=== PATIENT | male | born 1960 | race African-American/Black ===

== ENCOUNTER 2017-10-07 14:03 | Inpatient (IN) | payer OTHER ==
[2017-10-07 16:46] VITALS: BMI 28.6
--- NOTE | 2017-10-07 19:32 | HP ---
CIWA Score - CIWA Score Nausea/Vomitin Muscle Tremors: 3 Anxiety: 3 Agitation: 3 Paroxysmal Sweats: 3 Orientation: 0-Oriented Tacttile Disturbances: 1-Very Mild Itch/Numbness Auditory Disturbances: 0-None Visual Disturbances: 0-None Headache: 1-Very Mild CIWA-Ar Total Score: 17 Admission [facility] Chief Complaint: alcohol withdrawal sx Allergies/Adverse Reactions: Allergies Allergy/AdvReac Type Severity Reaction Status Date / Time No Known Allergies Allergy Verified 10/07/17 17:37 History of Present Illness: 57 yo w h/o chronic alcoholism requesting inpatient detoxification becasue of alcohol withdrawal sx when he does not drink, deneis h/o seizures, DTs. PMHX hep c+, teated and cleared the viru, anxiety, depression and insomna. no h/o OD , no suicide attempts no SI at thist jamie, thirsty Exam Limitations: No Limitations - Ebola screening Have you traveled outside of the country in the last 21 days: No Have you had contact with anyone from an Ebola affected area: No Have you been sick,other than usual withdrawal symptoms: No Do you have a fever: No - Review of Systems Constitutional: Chills, Diaphoresis, Loss of Appetite, Night Sweats, Changes in sleep, Weakness, Unintentional Wgt. Loss EENT: reports: No Symptoms Reported, Eye Pain (droopy eyelid), Tearing Respiratory: reports: No Symptoms reported Cardiac: reports: No Symptoms Reported GI: reports: Diarrhea, Nausea, Poor Appetite, Poor Fluid Intake, Indigestion, Abdominal cramping : reports: No Symptoms Reported Musculoskeletal: reports: Back Pain (chronic back pain), Joint Pain (carpal tunnel both hands), Joint Swelling, Muscle Pain, Joint Stiffness Integumentary: reports: Flushing Neuro: reports: Headache, Numbness, Paresthesia, Tremors, Weakness, Unsteady Gait (ambulates with cane s/p trauma r leg and multiple surgeries) Endocrine: reports: Flushing, Increased Thirst Hematology: reports: No Symptoms Reported Psychiatric: reports: Judgement Intact, Mood/Affect Appropiate, Orientated x3, Anxious, Depressed Other Systems: Reviewed and Negative Patient History - Patient Medical History Hx Anemia: No Hx Asthma: Yes (Pt is on MDI for asthma.) Hx Chronic Obstructive Pulmonary Disease (COPD): No Hx Cancer: No Hx Cardiac Disorders: No Hx Congestive Heart Failure: No Hx Hypertension: No Hx Hypercholesterolemia: No Hx Pacemaker: No HX Cerebrovascular Accident: No Hx Seizures: No Hx Dementia: No Hx Diabetes: No Hx Gastrointestinal Disorders: No Hx Liver Disease: No Hx Genitourinary Disorders: No Hx Sexually Transmitted Disorders: No Hx Renal Disease (ESRD): No Hx Thyroid Disease: No Hx Human Immunodeficiency Virus (HIV): No Hx Hepatitis C: Yes (treated and reortedly cleared virus) Hx Depression: Yes Hx Suicide Attempt: No (no si) Hx Bipolar Disorder: No Hx Schizophrenia: No - Patient Surgical History Past Surgical History: Yes Hx Abdominal Surgery: Yes (hernia repair) Hx Orthopedic Surgery: Yes (multiple sx both lower legs ambulates with cane) Other Surgical History: Cyst removed from mid back Anesthesia Reaction: No - PPD History Previous Implant?: Yes Documented Results: Negative w/o proof Implanted On Prior [facility] Admission?: No PPD to be Administered?: Yes - Reproductive History Patient is a Female of Child Bearing Age (11 -55 yrs old): No Patient : No - Smoking Cessation Smoking history: Current every day smoker Have you smoked in the past 12 months: Yes Cigars Per Day: 8 Hx Chewing Tobacco Use: No Initiated information on smoking cessation: Yes 'Breaking Loose' booklet given: 10/07/17 - Substance & Tx. History Hx Alcohol Use: Yes Hx Substance Use: No Substance Use Type: Alcohol Hx Substance Use [facility]: Yes ([facility]) - Substances Abused Alcohol Route: Oral Frequency: Daily Amount used: 4-5 24 oz beers/ 1/2 pint Age of first use: 15 Date of Last Use: 10/07/17 Family Disease History - Family Disease History Family History: Denies Family Disease History: Heart Disease: Mother (alzheimiers, thyroid), Other: Mother Admission Physical Exam [facility] - Vital Signs Vital Signs: Vital Signs - 24 hr 10/07/17 16:44 Temperature 98.2 F Pulse Rate 86 Respiratory 19 Rate Blood Pressure 114/75 - Physical General Appearance: Yes: Nourished, Appropriately Dressed, Disheveled, Mild Distress, Tremorous, Irritable, Sweating, Anxious HEENTM: Yes: EOMI, Hearing grossly Normal, Normocephalic, Normal Voice, GUERO, Pharynx Normal Respiratory: Yes: Within Normal Limits, Chest Non-Tender, Lungs Clear, Normal Breath Sounds, No Respiratory Distress, No Accessory Muscle Use Neck: Yes: Within Normal Limits, No masses,lesions,Nodules, Supple, Trachea in good position Breast: Yes: Breast Exam Deferred Cardiology: Yes: Within Normal Limits, Regular Rhythm, Regular Rate, S1, S2 Abdominal: Yes: Normal Bowel Sounds, Non Tender, Flat, Soft, Increased Bowel Sounds Genitourinary: Yes: Within Normal Limits Back: Yes: Normal Inspection, Decreased Range of Motion, Muscle Spasm, Vertebral Tenderness Musculoskeletal: Yes: Back pain, Joint Stiffness, Joint swelling, Muscle Pain, Muscle weakness, Other (ambulates with cane, leg scarring from multiple surgeries) Extremities: Yes: Normal Capillary Refill, Normal Range of Motion, Tremors Neurological: Yes: Fully Oriented, Alert, Motor Strength 5/5, Normal Response, Depressed Affect, Other (right eyle droop and redness) Lymphatic: Yes: Within Normal Limits - Addiitonal Findings: withdrawal sx - Diagnostic (1) Alcohol dependence with uncomplicated withdrawal Current Visit: Yes Status: Acute (2) Nicotine dependence Current Visit: Yes Status: Acute (3) Dehydration Current Visit: Yes Status: Acute (4) Depression Current Visit: Yes Status: Acute (5) Traumatic arthropathy, lower leg Current Visit: Yes Status: Acute (6) Carpal tunnel syndrome Current Visit: Yes Status: Acute (7) Chronic low back pain Current Visit: Yes Status: Acute (8) Arthritis of left hip Current Visit: Yes Status: Acute Cleared for Admission [facility] - Detox or Rehab [facility] Level of Care: Medically Managed Detox Regimen/Protocol: Librium [facility] Breath Alcohol Content Breath Alcohol Content: 0.167
[2017-10-07] MEDS ORDERED: MAG HYDROX/AL HYDROX/SIMETH 30 ML UNIT-DOSE CUP PO PRN (19:33)
[2017-10-07] MEDS ORDERED: guaiFENesin/D-METHORPHAN HB 10 ML UNIT-DOSE CUPS PO PRN (19:33)
[2017-10-07] MEDS ORDERED: hydrOXYzine PAMOATE 50 MG CAPSULE (FP) PO PRN (19:33)
[2017-10-07] MEDS ORDERED: chlordiazePOXIDE HCL 25 MG CAPSULE PO PRN (19:33)
[2017-10-07] MEDS ORDERED: IBUPROFEN 400 MG TABLET (FP) PO PRN (19:33)
[2017-10-07] MEDS ORDERED: LOPERAMIDE HCL 2 MG CAPSULE PO PRN (19:33)
[2017-10-07] MEDS ORDERED: NICOTINE POLACRILEX 2 MG GUM BC PRN (19:33)
[2017-10-07] MEDS ORDERED: chlordiazePOXIDE HCL 25 MG CAPSULE PO ONE (19:33)
[2017-10-07] MEDS ORDERED: ACETAMINOPHEN 325 MG TABLET (FP) PO PRN (19:33)
[2017-10-07] MEDS ORDERED: MAGNESIUM HYDROX 2400MG/30ML ORAL SUSPENSION 30 ML CUP PO PRN (19:33)
[2017-10-07] MEDS ORDERED: MAGNESIUM CITRATE 300 ML BOTTLE PO PRN (19:33)
[2017-10-07] MEDS: NICOTINE 14 MG/24 HOURS TOPICAL PATCH TD SCH (20:45)
[2017-10-07] MEDS: LIDOCAINE 5% TOPICAL PATCH TP SCH (20:45)
[2017-10-07] MEDS: THIAMINE HCL 100 MG TABLET (FP) PO SCH (22:05)
[2017-10-07] MEDS: chlordiazePOXIDE HCL 25 MG CAPSULE PO SCH (22:06)
[2017-10-07] MEDS: NAPROXEN 500 MG TABLET (FP) PO SCH (22:06)
[2017-10-07] MEDS: AMITRIPTYLINE HCL 25 MG TABLET (FP) PO SCH (22:06)
[2017-10-07] MEDS: GABAPENTIN 100 MG CAPSULE (FP) PO SCH (22:06)
[2017-10-07] MEDS: CYCLOBENZAPRINE HCL 10 MG TABLET (FP) PO SCH (22:06)
[2017-10-07] MEDS: LIDOCAINE PATCH REMOVAL MC SCH (22:08)
[2017-10-07 23:13] LABS: URINE APPEARANCE CLEAR; URINE BILIRUBIN NEGATIVE (NEGATIVE); URINE BLOOD NEGATIVE (NEGATIVE); URINE COLOR YELLOW; URINE GLUCOSE (UA) NEGATIVE (NEGATIVE); URINE KETONE NEGATIVE (NEGATIVE); URINE LEUK ESTERASE NEGATIVE (NEGATIVE); URINE NITRITE NEGATIVE (NEGATIVE); URINE PROTEIN NEGATIVE (NEGATIVE); URINE UROBILINOGEN NEGATIVE mg/dL (0.2-1.0)
[2017-10-08] MEDS: chlordiazePOXIDE HCL 25 MG CAPSULE PO SCH ×4 (05:30→23:10)
[2017-10-08] MEDS: GABAPENTIN 100 MG CAPSULE (FP) PO SCH ×3 (05:33→22:08)
[2017-10-08] MEDS: CYCLOBENZAPRINE HCL 10 MG TABLET (FP) PO SCH ×3 (05:33→22:09)
[2017-10-08 09:42] LABS: MCH 29.5 pg (25.7-33.7); MCHC 32.2 g/dl (32.0-35.9); MEAN CELL VOLUME 91.5 fl (80-96); PLATELET COUNT 241 K/MM3 (134-434); RDW 14.7 % (11.9-15.9)
[2017-10-08 10:00] LABS: ALBUMIN 3.4 g/dl (3.4-5.0); ALK PHOS 78 U/L (45-117); ANION GAP 6 (8-16); BILIRUBIN,TOTAL 0.5 mg/dL (0.2-1.0); CALCIUM 8.4 mg/dL (8.5-10.1); CO2 29 mmol/L (21-32); GLUCOSE,RANDOM 92 mg/dL (74-106); SGOT/AST 11 U/L (15-37); SGPT/ALT 16 U/L (12-78); TOT PROT 6.1 g/dl (6.4-8.2)
[2017-10-08] MEDS: NICOTINE 14 MG/24 HOURS TOPICAL PATCH TD SCH (10:08)
[2017-10-08] MEDS: NAPROXEN 500 MG TABLET (FP) PO SCH ×2 (10:08→22:09)
[2017-10-08] MEDS: PRENATAL VITAMINS W/ FOLIC ACID TABLET (FP) PO SCH (10:08)
[2017-10-08] MEDS: LIDOCAINE 5% TOPICAL PATCH TP SCH (10:09)
--- NOTE | 2017-10-08 11:12 | CONSULT ---
[facility] Psychiatric Consult - Data Date of interview: 10/08/17 Admission source: [facility] Identifying data: Mr Carreon is a 57 years old Black male, father of 3 children, unemployed on food stamp, homeless Substance Abuse History: Reports history of alcohol use. Refer to addiction counselor's note for further information. Medical History: Significant for bronchial asthma, arthritis left hip, carpal tunnel syndrome and a history of treatment for hepatitis c, surgery for ventral hernia repair and removal of cyst from mid back and multiple surgeries on both lower legs. Smokes 8 cigarettes daily Psychiatric History: Denies history of previous psychiatric treatment Physical/Sexual Abuse/Trauma History: Denies history of vrbal, physial or sexual abuse Additional Comment: Reports history of 2 previous felony convictions on charges of manslaughter second degree and gun possession. Reports being on parole till 2026 Mental Status Exam - Mental Status Exam Alert and Oriented to: Time, Place, Person Cognitive Function: Fair Patient Appearance: Well Groomed Mood: Hopeful, Euthymic Affect: Appropriate Patient Behavior: Cooperative Voice Loudness: Normal Thought Process: Intact, Goal Oriented Thought Disorder: Not Present Hallucinations: Denies Suicidal Ideation: Denies Homicidal Ideation: Denies Insight/Judgement: Poor Sleep: Well Appetite: Good Muscle strength/Tone: Normal Gait/Station: Normal Psychiatric Findings - Problem List ([place] 1, 2,3) (1) Alcohol dependence with uncomplicated withdrawal Current Visit: Yes Status: Acute (2) Nicotine dependence Current Visit: Yes Status: Acute (3) Arthritis of left hip Current Visit: Yes Status: Acute (4) Carpal tunnel syndrome Current Visit: Yes Status: Acute (5) Chronic low back pain Current Visit: Yes Status: Acute (6) Traumatic arthropathy, lower leg Current Visit: Yes Status: Acute - Initial Treatment Plan Initial Treatment Plan: Continue inpatient detoxification
[2017-10-08 12:43] LABS: URINE LEUK ESTERASE Negative (NEGATIVE)
[2017-10-08] MEDS: MENTHOL/PHENOL 1 EACH UD MM PRN (14:37)
--- NOTE | 2017-10-08 15:32 | PN ---
[facility] CIWA - CIWA Score Nausea/Vomitin-No Nausea/No Vomiting Muscle Tremors: 4-Moderate,w/Arms Extend Anxiety: 4-Mod. Anxious/Guarded Agitation: 3 Paroxysmal Sweats: 2 Orientation: 4Disoriented Place/Person Tacttile Disturbances: 0-None Auditory Disturbances: 0-None Visual Disturbances: 2-Mild Sensitivity Headache: 0-None Present CIWA-Ar Total Score: 19 S Progress Note (SOAP) Subjective: Tremors, Fatigue, Sweating, Body Aches. Objective: PT. A & O X 2 (UNCERTAIN ABOUT CURRENT LOCATION). PT. OBSERVED AMBULATING ON UNIT WITH ASSISTANCE OF A CANE. NO ACUTE DISTRESS. 10/08/17 15:28 Vital Signs Temperature 96.8 F L 10/08/17 15:02 Pulse Rate 97 H 10/08/17 15:02 Respiratory Rate 18 10/08/17 15:02 Blood Pressure 128/87 10/08/17 15:02 O2 Sat by Pulse Oximetry (%) Laboratory Tests 10/07/17 10/08/17 10/08/17 21:07 07:50 07:50 WBC 9.0 RBC 4.99 Hgb 14.7 Hct 45.7 MCV 91.5 MCH 29.5 MCHC 32.2 RDW 14.7 Plt Count 241 MPV 8.0 Sodium 141 Potassium 4.6 Chloride 106 Carbon Dioxide 29 Anion Gap 6 L BUN 12 Creatinine 1.0 Creat Clearance w eGFR > 60 Random Glucose 92 Calcium 8.4 L Total Bilirubin 0.5 AST 11 L ALT 16 Alkaline Phosphatase 78 Total Protein 6.1 L Albumin 3.4 Urine Color Yellow Urine Appearance Clear Urine pH 5.0 Ur Specific [place] 1.018 Urine Protein Negative Urine Glucose (UA) Negative Urine Ketones Negative Urine Blood Negative Urine Nitrite Negative Urine Bilirubin Negative Urine Urobilinogen Negative Ur Leukocyte Esterase Negative RPR Titer 10/08/17 07:50 WBC RBC Hgb Hct MCV MCH MCHC RDW Plt Count MPV Sodium Potassium Chloride Carbon Dioxide Anion Gap BUN Creatinine Creat Clearance w eGFR Random Glucose Calcium Total Bilirubin AST ALT Alkaline Phosphatase Total Protein Albumin Urine Color Urine Appearance Urine pH Ur Specific [place] Urine Protein Urine Glucose (UA) Urine Ketones Urine Blood Urine Nitrite Urine Bilirubin Urine Urobilinogen Ur Leukocyte Esterase RPR Titer Nonreactive LABS NOTED. Assessment: 10/08/17 15:32 WITHDRAWAL SYMPTOMS. Plan: CONTINUE DETOX. INCREASE DAILY PO FLUID INTAKE.
[2017-10-08] MEDS: ALBUTEROL SO4 18 GM HFA INHALER IH PRN (18:03)
[2017-10-08] MEDS: THIAMINE HCL 100 MG TABLET (FP) PO SCH (22:09)
[2017-10-08] MEDS: AMITRIPTYLINE HCL 25 MG TABLET (FP) PO SCH (22:09)
[2017-10-08] MEDS: LIDOCAINE PATCH REMOVAL MC SCH (23:10)
[2017-10-09] MEDS: CYCLOBENZAPRINE HCL 10 MG TABLET (FP) PO SCH ×3 (05:42→22:10)
[2017-10-09] MEDS: GABAPENTIN 100 MG CAPSULE (FP) PO SCH ×3 (05:42→22:10)
[2017-10-09] MEDS: chlordiazePOXIDE HCL 25 MG CAPSULE PO SCH ×3 (05:42→17:39)
[2017-10-09] MEDS: P-EPHED 60MG/TRIPROLIDI 2.5MG TABLET PO PRN ×2 (05:44→15:06)
[2017-10-09] MEDS: MENTHOL/PHENOL 1 EACH UD MM PRN (05:44)
--- NOTE | 2017-10-09 08:50 | EKG ---
Test Reason : Blood Pressure : / mmHG Vent. Rate : 094 BPM Atrial Rate : 094 BPM P-R Int : 122 ms QRS Dur : 082 ms QT Int : 360 ms P-R-T Axes : 070 -23 032 degrees QTc Int : 450 ms NORMAL SINUS RHYTHM NORMAL ECG NO PREVIOUS ECGS AVAILABLE Confirmed by MARCIANO GARCIA MD ([id number]) on 10/09/2017 8:50:02 AM Referred By: Confirmed By:MARCIANO GARCIA MD
[2017-10-09] MEDS: NAPROXEN 500 MG TABLET (FP) PO SCH ×2 (10:06→22:10)
[2017-10-09] MEDS: PRENATAL VITAMINS W/ FOLIC ACID TABLET (FP) PO SCH (10:06)
[2017-10-09] MEDS: NICOTINE 14 MG/24 HOURS TOPICAL PATCH TD SCH (10:06)
[2017-10-09] MEDS: LIDOCAINE 5% TOPICAL PATCH TP SCH (12:54)
--- NOTE | 2017-10-09 15:02 | PN ---
[facility] CIWA - CIWA Score Nausea/Vomitin-No Nausea/No Vomiting Muscle Tremors: 5 Anxiety: 4-Mod. Anxious/Guarded Agitation: 4-Moderately Restless Paroxysmal Sweats: 3 Orientation: 0-Oriented Tacttile Disturbances: 1-Very Mild Itch/Numbness Auditory Disturbances: 0-None Visual Disturbances: 0-None Headache: 0-None Present CIWA-Ar Total Score: 17 [facility] Progress Note (SOAP) Subjective: Anxious, sweating, tremor, nightmare Objective: 10/09/17 15:01 Last Vital Signs Temp Pulse Resp BP Pulse Ox 96.8 F L 99 H 18 126/89 10/09/17 14:13 10/09/17 14:13 10/09/17 14:13 10/09/17 14:13 Laboratory Tests 10/07/17 10/08/17 10/08/17 21:07 07:50 07:50 WBC 9.0 RBC 4.99 Hgb 14.7 Hct 45.7 MCV 91.5 MCH 29.5 MCHC 32.2 RDW 14.7 Plt Count 241 MPV 8.0 Sodium 141 Potassium 4.6 Chloride 106 Carbon Dioxide 29 Anion Gap 6 L BUN 12 Creatinine 1.0 Creat Clearance w eGFR > 60 Random Glucose 92 Calcium 8.4 L Total Bilirubin 0.5 AST 11 L ALT 16 Alkaline Phosphatase 78 Total Protein 6.1 L Albumin 3.4 Urine Color Yellow Urine Appearance Clear Urine pH 5.0 Ur Specific [place] 1.018 Urine Protein Negative Urine Glucose (UA) Negative Urine Ketones Negative Urine Blood Negative Urine Nitrite Negative Urine Bilirubin Negative Urine Urobilinogen Negative Ur Leukocyte Esterase Negative RPR Titer 10/08/17 07:50 WBC RBC Hgb Hct MCV MCH MCHC RDW Plt Count MPV Sodium Potassium Chloride Carbon Dioxide Anion Gap BUN Creatinine Creat Clearance w eGFR Random Glucose Calcium Total Bilirubin AST ALT Alkaline Phosphatase Total Protein Albumin Urine Color Urine Appearance Urine pH Ur Specific [place] Urine Protein Urine Glucose (UA) Urine Ketones Urine Blood Urine Nitrite Urine Bilirubin Urine Urobilinogen Ur Leukocyte Esterase RPR Titer Nonreactive Labs noted Assessment: 10/09/17 15:01 Withdrawal symptoms Plan: Continue detox
[2017-10-09] MEDS: ALBUTEROL SO4 18 GM HFA INHALER IH PRN (17:39)
[2017-10-09] MEDS: LIDOCAINE PATCH REMOVAL MC SCH (22:01)
[2017-10-09] MEDS: THIAMINE HCL 100 MG TABLET (FP) PO SCH (22:08)
[2017-10-09] MEDS: AMITRIPTYLINE HCL 25 MG TABLET (FP) PO SCH (22:09)
[2017-10-09] MEDS: BUDESONIDE/FORMETEROL FUMARATE 160/4.5 mcg INHALER IH SCH (22:09)
[2017-10-09] MEDS: chlordiazePOXIDE 5 MG CAPSULE PO SCH (22:10)
[2017-10-10] MEDS: chlordiazePOXIDE 5 MG CAPSULE PO SCH ×3 (05:36→17:25)
[2017-10-10] MEDS: CYCLOBENZAPRINE HCL 10 MG TABLET (FP) PO SCH ×3 (05:36→22:03)
[2017-10-10] MEDS: GABAPENTIN 100 MG CAPSULE (FP) PO SCH ×3 (05:36→22:03)
[2017-10-10] MEDS: BUDESONIDE/FORMETEROL FUMARATE 160/4.5 mcg INHALER IH SCH ×2 (10:16→22:05)
[2017-10-10] MEDS: PRENATAL VITAMINS W/ FOLIC ACID TABLET (FP) PO SCH (10:17)
[2017-10-10] MEDS: NICOTINE 14 MG/24 HOURS TOPICAL PATCH TD SCH (10:17)
[2017-10-10] MEDS: LIDOCAINE 5% TOPICAL PATCH TP SCH (10:17)
[2017-10-10] MEDS: NAPROXEN 500 MG TABLET (FP) PO SCH ×2 (10:17→22:03)
--- NOTE | 2017-10-10 10:27 | PN ---
[facility] Progress Note (SOAP) Subjective: PT C/O WATERY/BURNING EYES. SLIGHT TREMORS,FATIGUE. Objective: 10/10/17 12:28 Vital Signs 10/10/17 10/10/17 10/10/17 06:09 09:29 10:24 Temperature 96.3 F L 96.0 F L 96.0 F L Pulse Rate 84 104 H 101 H Respiratory 16 20 18 Rate Blood Pressure 120/77 126/90 137/92 Laboratory Last Values WBC 9.0 K/mm3 (4.0-10.0) 10/08/17 07:50 RBC 4.99 M/mm3 (4.00-5.60) 10/08/17 07:50 Hgb 14.7 GM/dL (11.7-16.9) 10/08/17 07:50 Hct 45.7 % (35.4-49) 10/08/17 07:50 MCV 91.5 fl (80-96) 10/08/17 07:50 MCH 29.5 pg (25.7-33.7) 10/08/17 07:50 MCHC 32.2 g/dl (32.0-35.9) 10/08/17 07:50 RDW 14.7 % (11.9-15.9) 10/08/17 07:50 Plt Count 241 K/MM3 (134-434) 10/08/17 07:50 MPV 8.0 fl (7.5-11.1) 10/08/17 07:50 Sodium 141 mmol/L (136-145) 10/08/17 07:50 Potassium 4.6 mmol/L (3.5-5.1) 10/08/17 07:50 Chloride 106 mmol/L (98-107) 10/08/17 07:50 Carbon Dioxide 29 mmol/L (21-32) 10/08/17 07:50 Anion Gap 6 (8-16) L 10/08/17 07:50 BUN 12 mg/dL (7-18) 10/08/17 07:50 Creatinine 1.0 mg/dL (0.7-1.3) 10/08/17 07:50 Creat Clearance w eGFR > 60 (>60) 10/08/17 07:50 Random Glucose 92 mg/dL (74-106) 10/08/17 07:50 Calcium 8.4 mg/dL (8.5-10.1) L 10/08/17 07:50 Total Bilirubin 0.5 mg/dL (0.2-1.0) 10/08/17 07:50 AST 11 U/L (15-37) L 10/08/17 07:50 ALT 16 U/L (12-78) 10/08/17 07:50 Alkaline Phosphatase 78 U/L (45-117) 10/08/17 07:50 Total Protein 6.1 g/dl (6.4-8.2) L 10/08/17 07:50 Albumin 3.4 g/dl (3.4-5.0) 10/08/17 07:50 Urine Color Yellow 10/07/17 21:07 Urine Appearance Clear 10/07/17 21:07 Urine pH 5.0 (5.0-8.0) 10/07/17 21:07 Ur Specific [place] 1.018 (1.001-1.035) 10/07/17 21:07 Urine Protein Negative (NEGATIVE) 10/07/17 21:07 Urine Glucose (UA) Negative (NEGATIVE) 10/07/17 21:07 Urine Ketones Negative (NEGATIVE) 10/07/17 21:07 Urine Blood Negative (NEGATIVE) 10/07/17 21:07 Urine Nitrite Negative (NEGATIVE) 10/07/17 21:07 Urine Bilirubin Negative (NEGATIVE) 10/07/17 21:07 Urine Urobilinogen Negative mg/dL (0.2-1.0) 10/07/17 21:07 Ur Leukocyte Esterase Negative (NEGATIVE) 10/07/17 21:07 RPR Titer Nonreactive (NONREACTIVE) 10/08/17 07:50 Assessment: 10/10/17 12:28 WITHDRAWAL SX Plan: CONTINUE DETOX ARTIFICIAL TEARS DIRECTED.
--- NOTE | 2017-10-10 12:35 | PN ---
[facility] Progress Note Note: PT REPORTED "BLACKING OUT" AND LANDED ON HIS BUTTOCKS ON THE FLOOR WHILE AT THE MEDICATION WINDOW THIS MORNING.HE DENIED IF HE WAS DIZZY OR LOC . ALERT O X 3. DENIES PAIN/INJURY TO BACK/BUTTOCKS. Vital Signs Temperature 96.0 F L 10/10/17 10:24 Pulse Rate 101 H 10/10/17 10:24 Respiratory Rate 18 10/10/17 10:24 Blood Pressure 137/92 10/10/17 10:24 O2 Sat by Pulse Oximetry (%) IMPRESSION:FALL PLAN:FALL PROTOCOL #2 MONITOR PT SAFETY.
[2017-10-10] MEDS: MENTHOL/PHENOL 1 EACH UD MM PRN (16:03)
[2017-10-10] MEDS: ALBUTEROL SO4 18 GM HFA INHALER IH PRN (18:12)
[2017-10-10] MEDS ORDERED: ARTIFICIAL TEARS (POLYVINYL ALCOHOL 1.4%) OPTH DROPS OU SCH (22:00)
[2017-10-10] MEDS: chlordiazePOXIDE HCL 10 MG CAPSULE PO SCH (22:03)
[2017-10-10] MEDS: AMITRIPTYLINE HCL 25 MG TABLET (FP) PO SCH (22:03)
[2017-10-10] MEDS: LIDOCAINE PATCH REMOVAL MC SCH (22:04)
[2017-10-10] MEDS: THIAMINE HCL 100 MG TABLET (FP) PO SCH (22:04)
[2017-10-11] MEDS: GABAPENTIN 100 MG CAPSULE (FP) PO SCH (05:46)
[2017-10-11] MEDS: chlordiazePOXIDE HCL 10 MG CAPSULE PO SCH (05:47)
[2017-10-11] MEDS: CYCLOBENZAPRINE HCL 10 MG TABLET (FP) PO SCH (05:47)
[2017-10-11] MEDS: NICOTINE 14 MG/24 HOURS TOPICAL PATCH TD SCH (09:13)
[2017-10-11] MEDS: NAPROXEN 500 MG TABLET (FP) PO SCH (09:13)
[2017-10-11] MEDS: PRENATAL VITAMINS W/ FOLIC ACID TABLET (FP) PO SCH (09:13)
[2017-10-11] MEDS: LIDOCAINE 5% TOPICAL PATCH TP SCH (09:13)
[2017-10-11 09:30] VITALS: TEMP 98.9
[2017-10-11 09:32] VITALS: BP 148/87; PULSE 110
--- NOTE | 2017-10-11 11:21 | DS ---
[facility] Detox Discharge Summary Admission Date: 10/07/17 Discharge Date: 10/11/17 - History Present History: Alcohol Dependence Additional Comments: PATIENT GOING TO [facility] FOR AFTERCARE. PATIENT DECLINED OFFER OF DISCHARGE MEDICATION PRESCRIPTIONS PRIOR TO LEAVING DETOX UNIT. PATIENT ABLE TO AMBULATE WITH ASSISTANCE OF A CANE. PATIENT WAS DISCHARGED FROM DETOX UNIT IN STABLE MEDICAL CONDITION. Pertinent Past History: Asthma, Carpal Tunnel Syndrome, Traumatic Arthropathy of Lower Leg, Depression, Dehydration, Chronic Low Back Pain, Nicotine Dependence, Arthritis of Left Hip. - Physical Exam Results Vital Signs: Vital Signs Temperature 98.9 F 10/11/17 09:29 Pulse Rate 110 H 10/11/17 09:29 Respiratory Rate 16 10/11/17 09:29 Blood Pressure 148/87 10/11/17 09:29 O2 Sat by Pulse Oximetry (%) Pertinent Admission Physical Exam Findings: WITHDRAWAL SYMPTOMS. Laboratory Tests 10/07/17 10/08/17 10/08/17 21:07 07:50 07:50 WBC 9.0 RBC 4.99 Hgb 14.7 Hct 45.7 MCV 91.5 MCH 29.5 MCHC 32.2 RDW 14.7 Plt Count 241 MPV 8.0 Sodium 141 Potassium 4.6 Chloride 106 Carbon Dioxide 29 Anion Gap 6 L BUN 12 Creatinine 1.0 Creat Clearance w eGFR > 60 Random Glucose 92 Calcium 8.4 L Total Bilirubin 0.5 AST 11 L ALT 16 Alkaline Phosphatase 78 Total Protein 6.1 L Albumin 3.4 Urine Color Yellow Urine Appearance Clear Urine pH 5.0 Ur Specific [place] 1.018 Urine Protein Negative Urine Glucose (UA) Negative Urine Ketones Negative Urine Blood Negative Urine Nitrite Negative Urine Bilirubin Negative Urine Urobilinogen Negative Ur Leukocyte Esterase Negative RPR Titer 10/08/17 07:50 WBC RBC Hgb Hct MCV MCH MCHC RDW Plt Count MPV Sodium Potassium Chloride Carbon Dioxide Anion Gap BUN Creatinine Creat Clearance w eGFR Random Glucose Calcium Total Bilirubin AST ALT Alkaline Phosphatase Total Protein Albumin Urine Color Urine Appearance Urine pH Ur Specific [place] Urine Protein Urine Glucose (UA) Urine Ketones Urine Blood Urine Nitrite Urine Bilirubin Urine Urobilinogen Ur Leukocyte Esterase RPR Titer Nonreactive LABS NOTED. - Treatment Hospital Course: Detox Protocol Followed, Detoxed Safely, Responded well, Discharged Condition Good, Rehab Referral Accepted Patient has Accepted a Rehab Referral to: [facility]). - Diagnosis (1) Alcohol dependence with uncomplicated withdrawal Status: Acute (2) Carpal tunnel syndrome Status: Acute Qualifiers: Laterality: unspecified laterality Qualified Code(s): G56.00 - Carpal tunnel syndrome, unspecified upper limb (3) Dehydration Status: Acute (4) Nicotine dependence Status: Acute Qualifiers: Nicotine product type: cigarettes Substance use status: in withdrawal Qualified Code(s): F17.213 - Nicotine dependence, cigarettes, with withdrawal (5) Arthritis of left hip Status: Chronic (6) Asthma Status: Chronic Qualifiers: Asthma severity: mild Asthma persistence: intermittent Asthma complication type: uncomplicated Qualified Code(s): J45.20 - Mild intermittent asthma, uncomplicated (7) Chronic low back pain Status: Chronic Qualifiers: Back pain laterality: unspecified Sciatica presence: unspecified whether sciatica present Qualified Code(s): M54.5 - Low back pain; G89.29 - Other chronic pain; G89.29 - Other chronic pain (8) Depression Status: Chronic Qualifiers: Depression Type: unspecified Qualified Code(s): F32.9 - Major depressive disorder, single episode, unspecified (9) Traumatic arthropathy, lower leg Status: Chronic - AMA Did Patient Leave Against Medical Advice: No
== END 2017-10-11 10:12 | disposition home or self-care (01) | DRG 775 ==
LOC: YASAS 14:03 → Y3N 19:23
PROVIDERS: ADMIT Internal Medicine; ATTEND Internal Medicine
PROC: HZ2ZZZZ Detoxification Services for Substance Abuse Treatment (ICD-10-PCS; principal; 2017-10-07)
DX: F10.230 Alcohol dependence with withdrawal, uncomplicated (principal); F17.210 Nicotine dependence, cigarettes, uncomplicated; F32.9 Major depressive disorder, single episode, unspecified; J45.20 Mild intermittent asthma, uncomplicated; E86.0 Dehydration; M13.852 Other specified arthritis, left hip; G56.00 Carpal tunnel syndrome, unspecified upper limb; Z59.0 Homelessness
CPT/HCPCS: 36415; 80053; 81003; 85027; 86593; 93005; 93010

== ENCOUNTER 2018-01-25 19:07 | Inpatient (IN) | payer OTHER ==
[2018-01-25 20:10] VITALS: BMI 27.4
--- NOTE | 2018-01-25 20:17 | HP ---
CIWA Score - CIWA Score Nausea/Vomitin Muscle Tremors: 4-Moderate,w/Arms Extend Anxiety: 4-Mod. Anxious/Guarded Agitation: 4-Moderately Restless Paroxysmal Sweats: 3 Orientation: 1-Uncertain about Date Tacttile Disturbances: 0-None Auditory Disturbances: 0-None Visual Disturbances: 0-None Headache: 0-None Present CIWA-Ar Total Score: 19 Admission ROS BHS - HPI Chief Complaint: " I am shaking every morning so I can stop drinking" Allergies/Adverse Reactions: Allergies Allergy/AdvReac Type Severity Reaction Status Date / Time flu vaccine AdvReac Uncoded 12/27/17 09:09 History of Present Illness: 57 y.o. male with alcoholism here for detox. client is known to this program. self referred. client is a new focus client. reports longest clean time 25 years while incarcerated. Exam Limitations: Physical Impairment (ambulates with cane to djd) - Ebola screening Have you traveled outside of the country in the last 21 days: No Have you had contact with anyone from an Ebola affected area: No Have you been sick,other than usual withdrawal symptoms: No Do you have a fever: No - Review of Systems Constitutional: Chills, Loss of Appetite, Malaise, Night Sweats, Changes in sleep EENT: reports: Eye Pain (r eye), Other (dentures) Respiratory: reports: Shortness of Breath, Other (asthma) Cardiac: reports: No Symptoms Reported GI: reports: Nausea, Poor Appetite, Poor Fluid Intake : reports: Incontinence, Other (bph) Musculoskeletal: reports: Joint Pain Integumentary: reports: No Symptoms Reported Neuro: reports: No Symptoms reported Endocrine: reports: No Symptoms Reported Hematology: reports: No Symptoms Reported Psychiatric: reports: Anxious Other Systems: Reviewed and Negative Patient History - Patient Medical History Hx Anemia: No Hx Asthma: Yes (Pt is on MDI for asthma.) Hx Chronic Obstructive Pulmonary Disease (COPD): No Hx Cancer: No Hx Cardiac Disorders: No Hx Congestive Heart Failure: No Hx Hypertension: No Hx Hypercholesterolemia: No Hx Pacemaker: No HX Cerebrovascular Accident: No Hx Seizures: No Hx Dementia: No Hx Diabetes: No Hx Gastrointestinal Disorders: No Hx Liver Disease: No Hx Genitourinary Disorders: Yes (bph) Hx Sexually Transmitted Disorders: No Hx Renal Disease (ESRD): No Hx Thyroid Disease: No Hx Human Immunodeficiency Virus (HIV): No Hx Hepatitis C: Yes (treated) Hx Depression: Yes Hx Suicide Attempt: No Hx Bipolar Disorder: No Hx Schizophrenia: No Other Medical History: djd, ANXIETY - Patient Surgical History Past Surgical History: Yes Hx Abdominal Surgery: Yes (ventral hernia repair 2013) Hx Orthopedic Surgery: Yes (multiple sx both lower legs ambulates with cane) Other Surgical History: abscess/cyst removed from mid back Anesthesia Reaction: No - PPD History Previous Implant?: Yes Documented Results: Negative w/proof Implanted On Prior [facility] Admission?: Yes Date: 10/09/17 Results: 0MM PPD to be Administered?: No - Smoking Cessation Smoking history: Current every day smoker Have you smoked in the past 12 months: Yes Aproximately how many cigarettes per day: 20 Cigars Per Day: 8 Hx Chewing Tobacco Use: No Initiated information on smoking cessation: Yes 'Breaking Loose' booklet given: 01/25/18 - Substance & Tx. History Hx Alcohol Use: Yes Hx Substance Use: No Substance Use Type: Alcohol Hx Substance Use Treatment: Yes ([facility]) - Substances Abused BEER/LIQUOR Route: Oral Frequency: Daily Amount used: 1.5 PINT/3- 24 OZ BEERS Age of first use: 15 Date of Last Use: 01/25/18 Family Disease History - Family Disease History Family Disease History: Heart Disease: Mother (dec'd age 70s, alzheimiers, thyroid), Other: Grandparent (mat gma with alzheizers), Father (dec'd age 70s, hx etoh), Mother, Brother (2 a&w, 1 with etoh, asthma), Sister (2 - 1 dec'd age 25 from asthma), Son (2 a&w), Daughter (2 a&w) Admission Physical Exam [facility] - Vital Signs Vital Signs: Vital Signs - 24 hr 01/25/18 20:06 Temperature 98 F Pulse Rate 103 H Respiratory 18 Rate Blood Pressure 116/74 - Physical General Appearance: Yes: Appropriately Dressed, Mild Distress, Alcohol on Breath , Tremorous, Anxious HEENTM: Yes: EOMI, Normocephalic, Normal Voice, GUERO, Pharynx Normal, Other ( DENTURES TOP NO BOTTOM TEETH) Respiratory: Yes: Chest Non-Tender, Lungs Clear, Normal Breath Sounds, No Respiratory Distress, No Accessory Muscle Use Neck: Yes: No masses,lesions,Nodules, Supple Breast: Yes: Breast Exam Deferred Cardiology: Yes: Regular Rhythm, S1, S2, Tachycardia Abdominal: Yes: Normal Bowel Sounds, Non Tender, Protuberent Genitourinary: Yes: Incontinient (PT REPORTS), Retention (PT REPORTS) Back: Yes: Normal Inspection Musculoskeletal: Yes: Joint Stiffness (BLE R/T DJD), Other (AMBULATES WITH CANE) Extremities: Yes: Normal Range of Motion, Non-Tender, Tremors Neurological: Yes: Alert Integumentary: Yes: Normal Color, Dry, Warm Lymphatic: Yes: Within Normal Limits - Diagnostic (1) DJD (degenerative joint disease) Current Visit: Yes Status: Chronic (2) Alcohol dependence with uncomplicated withdrawal Current Visit: Yes Status: Chronic (3) Asthma Current Visit: Yes Status: Chronic Qualifiers: Asthma severity: mild Asthma persistence: intermittent Asthma complication type: uncomplicated Qualified Code(s): J45.20 - Mild intermittent asthma, uncomplicated Comment: did not start trial of singulair hs as yet. will refer for pft's and pulm eval. encourage smoking cessation. (4) Enlarged prostate Current Visit: No Status: Chronic Comment: urol eval pending. (5) Nicotine dependence Current Visit: Yes Status: Chronic Qualifiers: Nicotine product type: cigarettes Substance use status: in withdrawal Qualified Code(s): F17.213 - Nicotine dependence, cigarettes, with withdrawal Comment: cont to encourage cessation, will consider ct low-dose rad scan for ca screening, pulm referral as above. Cleared for Admission [facility] - Detox or Rehab [facility] Level of Care: Medically Managed Detox Regimen/Protocol: Librium [facility] Breath Alcohol Content Breath Alcohol Content: 0.147 Urine Drug Screen - Results Drug Screen Negative: Yes
[2018-01-25] MEDS ORDERED: MAGNESIUM HYDROX 2400MG/30ML ORAL SUSPENSION 30 ML CUP PO PRN (20:28)
[2018-01-25] MEDS ORDERED: LOPERAMIDE HCL 2 MG CAPSULE PO PRN (20:28)
[2018-01-25] MEDS ORDERED: chlordiazePOXIDE HCL 25 MG CAPSULE PO PRN (20:28)
[2018-01-25] MEDS ORDERED: MAG HYDROX/AL HYDROX/SIMETH 30 ML UNIT-DOSE CUP PO PRN (20:28)
[2018-01-25] MEDS ORDERED: NICOTINE POLACRILEX 2 MG GUM BC PRN (20:28)
[2018-01-25] MEDS ORDERED: MENTHOL/PHENOL 1 EACH UD MM PRN (20:28)
[2018-01-25] MEDS ORDERED: ACETAMINOPHEN 325 MG TABLET (FP) PO PRN (20:28)
[2018-01-25] MEDS ORDERED: IBUPROFEN 400 MG TABLET (FP) PO PRN (20:28)
[2018-01-25] MEDS ORDERED: P-EPHED 60MG/TRIPROLIDI 2.5MG TABLET PO PRN (20:28)
[2018-01-25] MEDS ORDERED: MAGNESIUM CITRATE 300 ML BOTTLE PO PRN (20:28)
[2018-01-25] MEDS ORDERED: hydrOXYzine PAMOATE 50 MG CAPSULE (FP) PO PRN (20:28)
[2018-01-25] MEDS ORDERED: guaiFENesin/D-METHORPHAN HB 10 ML UNIT-DOSE CUPS PO PRN (20:28)
[2018-01-25] MEDS ORDERED: ALBUTEROL SO4 18 GM HFA INHALER IH PRN (20:29)
[2018-01-25] MEDS ORDERED: ALBUTEROL SO4 2.5/IPRATROPIUM 0.5 INH SOL 3 ML VIAL.NEB. NEB PRN (20:30)
[2018-01-25] MEDS ORDERED: MELATONIN 5 MG TABLETS PO PRN (22:00)
[2018-01-25] MEDS: chlordiazePOXIDE HCL 25 MG CAPSULE PO SCH (23:17)
[2018-01-25] MEDS: THIAMINE HCL 100 MG TABLET (FP) PO SCH (23:17)
[2018-01-26] MEDS: chlordiazePOXIDE HCL 25 MG CAPSULE PO SCH ×4 (05:24→22:49)
--- NOTE | 2018-01-26 09:23 | CONSULT ---
[facility] Psychiatric Consult - Data Date of interview: 01/26/18 Admission source: [facility] Identifying data: This is 57 years old male, single father of two, homeless, on PA, ambulates with cane, with no psychiatric hospitalization history, with history of alcoholism seeking detox. client is known to this program. self referred. Substance Abuse History: Smoking history: Current every day smoker. Have you smoked in the past 12 months: Yes. Aproximately how many cigarettes per day: 20. Cigars Per Day: 8. Hx Chewing Tobacco Use: No. Initiated information on smoking cessation: Yes. 'Breaking Loose' booklet given: 01/25/18. - Substance & Tx. History. Hx Alcohol Use: Yes. Hx Substance Use: No. Substance Use Type : Alcohol. Hx Substance Use Treatment: Yes ([facility]). - Substances Abused. BEER/LIQUOR. Route: Oral. Frequency: Daily. Amount used: 1.5 PINT/3- 24 OZ BEERS. Age of first use: 15. Date of Last Use: 01/25/18 Medical History: DJD, Asthma, BPH, HepC+, s/p multiple surgical procedures, Left Hip Disorder, ambulates with cane. Psychiatric History: Denies past psychiastric history Physical/Sexual Abuse/Trauma History: Denies Additional Comment: Observation. Detox Unit Care Protocol Mental Status Exam - Mental Status Exam Alert and Oriented to: Person Cognitive Function: Fair Patient Appearance: Unkempt Mood: Sad Affect: Flat Patient Behavior: Sedated Speech Pattern: Delayed Voice Loudness: Mildly Soft/Quiet Thought Process: Circumstantial Thought Disorder: Being Controlled Hallucinations: Denies Suicidal Ideation: Denies Homicidal Ideation: Denies Insight/Judgement: Fair Sleep: Difficulty falling asleep Appetite: Fair Muscle strength/Tone: Rigidity Gait/Station: Deferred Additional Comments: Observation. Detox Unit Care Protocol Psychiatric Findings - Problem List ([place] 1, 2,3) (1) Alcohol-induced mood disorder Current Visit: Yes Status: Suspected (2) Alcohol dependence with uncomplicated withdrawal Current Visit: Yes Status: Chronic (3) Nicotine dependence Current Visit: Yes Status: Chronic Qualifiers: Nicotine product type: cigarettes Substance use status: in withdrawal Qualified Code(s): F17.213 - Nicotine dependence, cigarettes, with withdrawal Comment: cont to encourage cessation, will consider ct low-dose rad scan for ca screening, pulm referral as above. (4) Alcohol dependence Current Visit: No Status: Chronic Comment: states attending new focus, cont to support and monitor. (5) Arthritis of left hip Current Visit: No Status: Chronic - Initial Treatment Plan Initial Treatment Plan: Observation. Detox Unit Care Protocol
[2018-01-26 10:13] LABS: HEMATOCRIT 42.4 % (35.4-49); HEMOGLOBIN 14.2 GM/dL (11.7-16.9); MCH 30.9 pg (25.7-33.7); MCHC 33.5 g/dl (32.0-35.9); MEAN CELL VOLUME 92.1 fl (80-96); MEAN PLT VOLUME 7.9 fl (7.5-11.1); PLATELET COUNT 238 K/MM3 (134-434); RDW 15.1 % (11.9-15.9); WHITE BLOOD COUNT 8.5 K/mm3 (4.0-10.0)
[2018-01-26] MEDS: PRENATAL VITAMINS W/ FOLIC ACID TABLET (FP) PO SCH (10:47)
[2018-01-26] MEDS: NICOTINE 21 MG/24 HOURS TOPICAL PATCH TD SCH (10:47)
[2018-01-26 10:53] LABS: CHLORIDE 107 mmol/L (98-107); SODIUM 140 mmol/L (136-145)
[2018-01-26 11:00] LABS: ALBUMIN 3.6 g/dl (3.4-5.0); ALK PHOS 98 U/L (45-117); ANION GAP 8 (8-16); BILIRUBIN,TOTAL 0.1 mg/dL (0.2-1.0); BLOOD UREA NITROGEN 11 mg/dL (7-18); CALCIUM 8.9 mg/dL (8.5-10.1); CO2 25 mmol/L (21-32); GLUCOSE,RANDOM 74 mg/dL (74-106); SGOT/AST 14 U/L (15-37); SGPT/ALT 15 U/L (12-78); TOT PROT 6.6 g/dl (6.4-8.2)
--- NOTE | 2018-01-26 11:44 | EKG ---
Test Reason : Blood Pressure : / mmHG Vent. Rate : 096 BPM Atrial Rate : 096 BPM P-R Int : 124 ms QRS Dur : 086 ms QT Int : 368 ms P-R-T Axes : 077 -29 036 degrees QTc Int : 464 ms NORMAL SINUS RHYTHM POSSIBLE LEFT ATRIAL ENLARGEMENT BORDERLINE ECG WHEN COMPARED WITH ECG OF 27-DEC-2017 10:01, NO SIGNIFICANT CHANGE WAS FOUND Confirmed by CÉSAR ZIMMERMAN, LEILA ([id number]) on 01/26/2018 11:43:44 AM Referred By: Confirmed By:LEILA LINDSEY MD
--- NOTE | 2018-01-26 17:03 | PN ---
S CIWA - CIWA Score Nausea/Vomitin Muscle Tremors: None Anxiety: 4-Mod. Anxious/Guarded Agitation: 2 Paroxysmal Sweats: 3 Orientation: 0-Oriented Tacttile Disturbances: 3-Moderate Itch/Numb/Burn Auditory Disturbances: 2-Mild Harshness/Frighten Visual Disturbances: 0-None Headache: 0-None Present CIWA-Ar Total Score: 17 BHS Progress Note (SOAP) Subjective: Sweating, Fatigue, Nausea, Interrupted Sleep. Objective: PATIENT A & O X 3. NO ACUTE DISTRESS. 01/26/18 17:02 Vital Signs Temperature 97.3 F L 01/26/18 13:30 Pulse Rate 66 01/26/18 16:30 Respiratory Rate 18 01/26/18 16:30 Blood Pressure 110/71 01/26/18 13:30 O2 Sat by Pulse Oximetry (%) Laboratory Tests 01/26/18 01/26/18 01/26/18 07:00 07:00 07:00 WBC 8.5 RBC 4.60 Hgb 14.2 Hct 42.4 MCV 92.1 MCH 30.9 MCHC 33.5 RDW 15.1 Plt Count 238 MPV 7.9 Sodium 140 Potassium 4.0 Chloride 107 Carbon Dioxide 25 Anion Gap 8 BUN 11 D Creatinine 1.0 Creat Clearance w eGFR > 60 Random Glucose 74 Calcium 8.9 Total Bilirubin 0.1 L D AST 14 L ALT 15 Alkaline Phosphatase 98 Total Protein 6.6 Albumin 3.6 RPR Titer Nonreactive LABS NOTED. UA RESULTS PENDING. 01/26/18 17:03 Assessment: 01/26/18 17:02 WITHDRAWAL SYMPTOMS. Plan: CONTINUE DETOX.
[2018-01-26 17:52] LABS: URINE APPEARANCE CLEAR; URINE BILIRUBIN NEGATIVE (<2.0 mg/dL); URINE BLOOD NEGATIVE (NEGATIVE); URINE COLOR YELLOW; URINE GLUCOSE (UA) NEGATIVE (NEGATIVE); URINE KETONE NEGATIVE (NEGATIVE); URINE LEUK ESTERASE NEGATIVE (NEGATIVE); URINE NITRITE NEGATIVE (NEGATIVE); URINE PROTEIN NEGATIVE (NEGATIVE); URINE UROBILINOGEN NEGATIVE mg/dL (0.2-1.0)
[2018-01-26] MEDS: THIAMINE HCL 100 MG TABLET (FP) PO SCH (22:49)
[2018-01-27] MEDS: chlordiazePOXIDE HCL 25 MG CAPSULE PO SCH ×2 (05:28→10:06)
[2018-01-27 06:18] VITALS: BP 136/81; PULSE 77; TEMP 97.3
[2018-01-27] MEDS: PRENATAL VITAMINS W/ FOLIC ACID TABLET (FP) PO SCH (10:06)
[2018-01-27] MEDS: NICOTINE 21 MG/24 HOURS TOPICAL PATCH TD SCH (10:06)
--- NOTE | 2018-01-27 11:20 | PN ---
S CIWA - CIWA Score Nausea/Vomitin Muscle Tremors: None Anxiety: 4-Mod. Anxious/Guarded Agitation: 3 Paroxysmal Sweats: 3 Orientation: 0-Oriented Tacttile Disturbances: 2-Mild Itch/Numbness/Burn Auditory Disturbances: 0-None Visual Disturbances: 0-None Headache: 0-None Present CIWA-Ar Total Score: 15 BHS Progress Note (SOAP) Subjective: Sweating, Nausea, Interrupted Sleep. Objective: PATIENT A & O X 3, OBSERVED AMBULATING ON UNIT. NO ACUTE DISTRESS. 01/27/18 11:19 Vital Signs Temperature 97.3 F L 01/27/18 06:17 Pulse Rate 77 01/27/18 06:17 Respiratory Rate 18 01/27/18 06:17 Blood Pressure 136/81 01/27/18 06:17 O2 Sat by Pulse Oximetry (%) Laboratory Tests 01/26/18 01/26/18 01/26/18 07:00 07:00 07:00 WBC 8.5 RBC 4.60 Hgb 14.2 Hct 42.4 MCV 92.1 MCH 30.9 MCHC 33.5 RDW 15.1 Plt Count 238 MPV 7.9 Sodium 140 Potassium 4.0 Chloride 107 Carbon Dioxide 25 Anion Gap 8 BUN 11 D Creatinine 1.0 Creat Clearance w eGFR > 60 Random Glucose 74 Calcium 8.9 Total Bilirubin 0.1 L D AST 14 L ALT 15 Alkaline Phosphatase 98 Total Protein 6.6 Albumin 3.6 Urine Color Urine Appearance Urine pH Ur Specific [place] Urine Protein Urine Glucose (UA) Urine Ketones Urine Blood Urine Nitrite Urine Bilirubin Urine Urobilinogen Ur Leukocyte Esterase RPR Titer Nonreactive 01/26/18 14:50 WBC RBC Hgb Hct MCV MCH MCHC RDW Plt Count MPV Sodium Potassium Chloride Carbon Dioxide Anion Gap BUN Creatinine Creat Clearance w eGFR Random Glucose Calcium Total Bilirubin AST ALT Alkaline Phosphatase Total Protein Albumin Urine Color Yellow Urine Appearance Clear Urine pH 6.0 Ur Specific [place] 1.023 Urine Protein Negative Urine Glucose (UA) Negative Urine Ketones Negative Urine Blood Negative Urine Nitrite Negative Urine Bilirubin Negative Urine Urobilinogen Negative Ur Leukocyte Esterase Negative RPR Titer LABS NOTED. Assessment: 01/27/18 11:20 WITHDRAWAL SYMPTOMS. Plan: CONTINUE DETOX.
--- NOTE | 2018-01-27 11:24 | DS ---
[facility] Detox Discharge Summary Admission Date: 01/25/18 Discharge Date: 01/27/18 - History Present History: Alcohol Dependence Additional Comments: PATIENT HAS PERSONAL ISSUE TO ATTEND TO AND DOES NOT WISH TO STAY TO COMPLETE DETOX REGIMEN. RISKS OF LEAVING DETOX UNIT AGAINST MEDICAL ADVICE AND PRIOR TO COMPLETION OF DETOX REGIMEN EXPLAINED TO PATIENT. PATIENT ADVISED TO GO IMMEDIATELY TO NEAREST ER SHOULD ANY INTOLERABLE DETOX SYMPTOMS DEVELOP AT ANY TIME. PATIENT LEFT DETOX UNIT IN STABLE MEDICAL CONDITION. Pertinent Past History: Degenerative Joint Disease (DJD), Arthritis of Hip, Enlarged Prostate, Nicotine Dependence, Asthma, Hep C (Treated), Depression. - Physical Exam Results Vital Signs: Vital Signs Temperature 97.3 F L 01/27/18 06:17 Pulse Rate 77 01/27/18 06:17 Respiratory Rate 18 01/27/18 06:17 Blood Pressure 136/81 01/27/18 06:17 O2 Sat by Pulse Oximetry (%) Pertinent Admission Physical Exam Findings: WITHDRAWAL SYMPTOMS. Laboratory Tests 01/26/18 01/26/18 01/26/18 07:00 07:00 07:00 WBC 8.5 RBC 4.60 Hgb 14.2 Hct 42.4 MCV 92.1 MCH 30.9 MCHC 33.5 RDW 15.1 Plt Count 238 MPV 7.9 Sodium 140 Potassium 4.0 Chloride 107 Carbon Dioxide 25 Anion Gap 8 BUN 11 D Creatinine 1.0 Creat Clearance w eGFR > 60 Random Glucose 74 Calcium 8.9 Total Bilirubin 0.1 L D AST 14 L ALT 15 Alkaline Phosphatase 98 Total Protein 6.6 Albumin 3.6 Urine Color Urine Appearance Urine pH Ur Specific [place] Urine Protein Urine Glucose (UA) Urine Ketones Urine Blood Urine Nitrite Urine Bilirubin Urine Urobilinogen Ur Leukocyte Esterase RPR Titer Nonreactive 01/26/18 14:50 WBC RBC Hgb Hct MCV MCH MCHC RDW Plt Count MPV Sodium Potassium Chloride Carbon Dioxide Anion Gap BUN Creatinine Creat Clearance w eGFR Random Glucose Calcium Total Bilirubin AST ALT Alkaline Phosphatase Total Protein Albumin Urine Color Yellow Urine Appearance Clear Urine pH 6.0 Ur Specific [place] 1.023 Urine Protein Negative Urine Glucose (UA) Negative Urine Ketones Negative Urine Blood Negative Urine Nitrite Negative Urine Bilirubin Negative Urine Urobilinogen Negative Ur Leukocyte Esterase Negative RPR Titer LABS NOTED. - Treatment Hospital Course: Detoxed Safely - Medication Discharge Medications: Ambulatory Orders Cholecalciferol (Vitamin D3) [Vitamin D3] 1 cap PO DAILY #30 capsule 12/27/17 Albuterol Sulfate Inhaler - [Ventolin Hfa Inhaler -] 2 inh PO Q6H 01/25/18 - Diagnosis (1) Alcohol dependence with uncomplicated withdrawal Current Visit: Yes Status: Chronic (2) Asthma Current Visit: Yes Status: Chronic Qualifiers: Asthma severity: mild Asthma persistence: intermittent Asthma complication type: uncomplicated Qualified Code(s): J45.20 - Mild intermittent asthma, uncomplicated (3) DJD (degenerative joint disease) Current Visit: Yes Status: Chronic Qualifiers: Osteoarthritis location: unspecified site Osteoarthritis type: unspecified Qualified Code(s): M19.90 - Unspecified osteoarthritis, unspecified site (4) Enlarged prostate Current Visit: Yes Status: Chronic (5) Nicotine dependence Current Visit: Yes Status: Chronic Qualifiers: Nicotine product type: cigarettes Substance use status: in withdrawal Qualified Code(s): F17.213 - Nicotine dependence, cigarettes, with withdrawal (6) Alcohol-induced mood disorder Current Visit: Yes Status: Suspected (7) Arthritis of left hip Current Visit: Yes Status: Chronic - AMA Did Patient Leave Against Medical Advice: Yes (PT HAD PERSONAL ISSUE AND DOES NOT WISH TO STAY TO COMPLETE DETOX REGIMEN.)
[2018-01-27] MEDS ORDERED: chlordiazePOXIDE 5 MG CAPSULE PO SCH (23:00)
[2018-01-28] MEDS ORDERED: chlordiazePOXIDE HCL 10 MG CAPSULE PO SCH (23:00)
== END 2018-01-27 09:15 | disposition left against medical advice (07) | DRG 770 ==
LOC: YASAS 19:07 → Y3N 22:01
PROVIDERS: ADMIT Internal Medicine; ATTEND Internal Medicine
PROC: HZ2ZZZZ Detoxification Services for Substance Abuse Treatment (ICD-10-PCS; principal; 2018-01-25)
DX: F10.230 Alcohol dependence with withdrawal, uncomplicated (principal); F17.210 Nicotine dependence, cigarettes, uncomplicated; F10.24 Alcohol dependence with alcohol-induced mood disorder; J45.20 Mild intermittent asthma, uncomplicated; N40.0 Benign prostatic hyperplasia without lower urinary tract symptoms; M16.12 Unilateral primary osteoarthritis, left hip; F41.9 Anxiety disorder, unspecified; R26.89 Other abnormalities of gait and mobility; Z99.89 Dependence on other enabling machines and devices
CPT/HCPCS: 36415; 80053; 81003; 85027; 86593; 93005; 93010

== ENCOUNTER 2018-02-28 11:10 | Inpatient (IN) | payer OTHER ==
[2018-02-28 11:58] VITALS: BMI 28.4
--- NOTE | 2018-02-28 12:44 | HP ---
CIWA Score - CIWA Score Nausea/Vomitin-Mild Nausea/No Vomiting Muscle Tremors: 4-Moderate,w/Arms Extend Anxiety: 4-Mod. Anxious/Guarded Agitation: 4-Moderately Restless Paroxysmal Sweats: 1-Minimal Palms Moist Orientation: 0-Oriented Tacttile Disturbances: 1-Very Mild Itch/Numbness Auditory Disturbances: 0-None Visual Disturbances: 0-None Headache: 0-None Present CIWA-Ar Total Score: 15 Admission ROS BHS - HPI Chief Complaint: withdrawal sx alcohol Allergies/Adverse Reactions: Allergies Allergy/AdvReac Type Severity Reaction Status Date / Time flu vaccine Allergy Severe Hives Uncoded 02/28/18 12:24 History of Present Illness: 57 years old male with long history of alcohol nicotine dependence has degenerated bone disease multiple knees surgeries since age 4 ambulate with cane , denies mental illness is admitted to detox Exam Limitations: No Limitations - Ebola screening Have you traveled outside of the country in the last 21 days: No Have you had contact with anyone from an Ebola affected area: No Have you been sick,other than usual withdrawal symptoms: No Do you have a fever: No - Review of Systems Constitutional: Chills, Weight Stable EENT: reports: Other (right eye upper lid "close itself" x 8-9 months treated with artificial tear drop agrees to visit an network diagnostic support specialist neurologist after detox and rehab for alcohol) Respiratory: reports: SOB with Exertion (asthma) Cardiac: reports: No Symptoms Reported GI: reports: Nausea, Poor Fluid Intake, Abdominal cramping : reports: Frequency (at night) Musculoskeletal: reports: Joint Pain (knees), Muscle Weakness (knees - legs) Integumentary: reports: No Symptoms Reported Neuro: reports: Tremors Endocrine: reports: No Symptoms Reported Hematology: reports: No Symptoms Reported Psychiatric: reports: Judgement Intact, Mood/Affect Appropiate, Orientated x3 Other Systems: Reviewed and Negative Patient History - Patient Medical History Hx Anemia: No Hx Asthma: Yes (Pt is on MDI for asthma.) Hx Chronic Obstructive Pulmonary Disease (COPD): No Hx Cancer: No Hx Cardiac Disorders: No Hx Congestive Heart Failure: No Hx Hypertension: No Hx Hypercholesterolemia: No Hx Pacemaker: No HX Cerebrovascular Accident: No Hx Seizures: No Hx Dementia: No Hx Diabetes: No Hx Gastrointestinal Disorders: No Hx Liver Disease: No Hx Genitourinary Disorders: Yes (bph) Hx Sexually Transmitted Disorders: No Hx Renal Disease (ESRD): No Hx Thyroid Disease: No Hx Human Immunodeficiency Virus (HIV): No Hx Hepatitis C: Yes (treated) Hx Depression: No Hx Suicide Attempt: No Hx Bipolar Disorder: No Hx Schizophrenia: No - Patient Surgical History Past Surgical History: Yes Hx Neurologic Surgery: No Hx Cataract Extraction: No Hx Cardiac Surgery: No Hx Lung Surgery: No Hx Breast Surgery: No Hx Breast Biopsy: No Hx Abdominal Surgery: Yes (ventral hernia repair 2013) Hx Appendectomy: No Hx Cholecystectomy: No Hx Genitourinary Surgery: No Hx Orthopedic Surgery: Yes (multiple sx both lower legs ambulates with cane) Other Surgical History: abscess/cyst removed from mid back Anesthesia Reaction: No - PPD History Previous Implant?: Yes Documented Results: Negative w/proof Implanted On Prior [facility] Admission?: Yes Date: 10/09/17 Results: 0MM PPD to be Administered?: No - Smoking Cessation Smoking history: Current every day smoker Have you smoked in the past 12 months: Yes Aproximately how many cigarettes per day: 20 Cigars Per Day: 8 Hx Chewing Tobacco Use: No Initiated information on smoking cessation: Yes 'Breaking Loose' booklet given: 02/28/18 - Substance & Tx. History Hx Alcohol Use: Yes Hx Substance Use: No Substance Use Type: Alcohol Hx Substance Use Treatment: Yes (12/2017 [facility] Family Disease History - Family Disease History Family Disease History: Heart Disease: Mother (dec'd age 70s, alzheimiers, thyroid), Other: Grandparent (mat gma with alzheizers), Father (dec'd age 70s, hx etoh), Mother, Brother (2 a&w, 1 with etoh, asthma), Sister (2 - 1 dec'd age 25 from asthma), Son (2 a&w), Daughter (2 a&w) Admission Physical Exam BHS - Vital Signs Vital Signs: Vital Signs - 24 hr 02/28/18 11:51 Temperature 98.1 F Pulse Rate 84 Respiratory 18 Rate Blood Pressure 125/75 - Physical General Appearance: Yes: Appropriately Dressed, Mild Distress, Alcohol on Breath , Tremorous, Irritable, Sweating, Anxious HEENTM: Yes: Hearing grossly Normal, Normocephalic, Normal Voice Respiratory: Yes: Chest Non-Tender, No Respiratory Distress, No Accessory Muscle Use, Wheezing, Expiration Neck: Yes: Supple, Trachea in good position Breast: Yes: Breasts Symetrical Cardiology: Yes: Regular Rhythm, Regular Rate, S1, S2 Abdominal: Yes: Normal Bowel Sounds, Non Tender, Flat Genitourinary: Yes: Within Normal Limits Back: Yes: Normal Inspection Musculoskeletal: Yes: full range of Motion, Gait Steady, Muscle Pain (knees) Extremities: Yes: Normal Inspection (scars knees), Non-Tender, Tremors Neurological: Yes: Fully Oriented, Alert, Normal Mood/Affect, Normal Response Integumentary: Yes: Warm Lymphatic: Yes: Within Normal Limits - Diagnostic (1) Alcohol dependence with uncomplicated withdrawal Current Visit: Yes Status: Acute (2) Asthma Current Visit: Yes Status: Chronic Qualifiers: Asthma severity: mild Asthma persistence: intermittent Asthma complication type: uncomplicated Qualified Code(s): J45.20 - Mild intermittent asthma, uncomplicated Comment: did not start trial of singulair hs as yet. will refer for pft's and pulm eval. encourage smoking cessation. (3) DJD (degenerative joint disease) Current Visit: No Status: Resolved Qualifiers: Osteoarthritis location: unspecified site Osteoarthritis type: unspecified Qualified Code(s): M19.90 - Unspecified osteoarthritis, unspecified site Comment: cane (4) Enlarged prostate Current Visit: Yes Status: Chronic Comment: urol eval pending. (5) Nicotine dependence Current Visit: Yes Status: Acute Qualifiers: Nicotine product type: cigarettes Substance use status: in withdrawal Qualified Code(s): F17.213 - Nicotine dependence, cigarettes, with withdrawal Comment: cont to encourage cessation, will consider ct low-dose rad scan for ca screening, pulm referral as above. (6) Hepatitis C Current Visit: No Status: Resolved Qualifiers: Viral hepatitis chronicity: unspecified Hepatic coma status: without hepatic coma Qualified Code(s): B19.20 - Unspecified viral hepatitis C without hepatic coma Comment: undetectable hcv vl, will cont surveillance - labs and imaging. encourage to avoid etoh. Cleared for Admission S - Detox or Rehab [facility] Level of Care: Medically Managed Detox Regimen/Protocol: Librium [facility] Breath Alcohol Content Breath Alcohol Content: 0.079 Urine Drug Screen - Results Drug Screen Negative: Yes
[2018-02-28] MEDS ORDERED: MAG HYDROX/AL HYDROX/SIMETH 30 ML UNIT-DOSE CUP PO PRN (12:53)
[2018-02-28] MEDS ORDERED: LOPERAMIDE HCL 2 MG CAPSULE PO PRN (12:53)
[2018-02-28] MEDS ORDERED: P-EPHED 60MG/TRIPROLIDI 2.5MG TABLET PO PRN (12:53)
[2018-02-28] MEDS ORDERED: NICOTINE POLACRILEX 4 MG GUM BC PRN (12:53)
[2018-02-28] MEDS ORDERED: ACETAMINOPHEN 325 MG TABLET (FP) PO PRN (12:53)
[2018-02-28] MEDS ORDERED: chlordiazePOXIDE HCL 25 MG CAPSULE PO PRN (12:53)
[2018-02-28] MEDS ORDERED: MENTHOL/PHENOL 1 EACH UD MM PRN (12:53)
[2018-02-28] MEDS ORDERED: IBUPROFEN 400 MG TABLET (FP) PO PRN (12:53)
[2018-02-28] MEDS ORDERED: MAGNESIUM HYDROX 2400MG/30ML ORAL SUSPENSION 30 ML CUP PO PRN (12:53)
[2018-02-28] MEDS ORDERED: MAGNESIUM CITRATE 300 ML BOTTLE PO PRN (12:53)
[2018-02-28] MEDS ORDERED: guaiFENesin/D-METHORPHAN HB 10 ML UNIT-DOSE CUPS PO PRN (12:53)
[2018-02-28] MEDS ORDERED: ALBUTEROL SO4 0.083% IH SOL 2.5 MG/3 ML VIAL.NEB. NEB PRN (13:08)
[2018-02-28] MEDS: ARTIFICIAL TEARS (POLYVINYL ALCOHOL 1.4%) OPTH DROPS OD SCH ×3 (14:42→22:16)
[2018-02-28] MEDS: NICOTINE 21 MG/24 HOURS TOPICAL PATCH TD SCH (14:42)
--- NOTE | 2018-02-28 16:07 | EKG ---
Test Reason : Blood Pressure : / mmHG Vent. Rate : 084 BPM Atrial Rate : 084 BPM P-R Int : 128 ms QRS Dur : 072 ms QT Int : 374 ms P-R-T Axes : 072 -16 004 degrees QTc Int : 441 ms NORMAL SINUS RHYTHM NORMAL ECG WHEN COMPARED WITH ECG OF 25-JAN-2018 23:05, NO SIGNIFICANT CHANGE WAS FOUND Confirmed by Wood Mas ([id number]) on 02/28/2018 4:07:18 PM Referred By: Confirmed By:Wood Mas
[2018-02-28 19:17] LABS: HEMATOCRIT 44.8 % (35.4-49); HEMOGLOBIN 14.8 GM/dL (11.7-16.9); MCH 30.6 pg (25.7-33.7); MCHC 33.1 g/dl (32.0-35.9); MEAN CELL VOLUME 92.2 fl (80-96); MEAN PLT VOLUME 8.1 fl (7.5-11.1); PLATELET COUNT 285 K/MM3 (134-434); RBC 4.86 M/mm3 (4.00-5.60); RDW 15.1 % (11.9-15.9); WHITE BLOOD COUNT 9.9 K/mm3 (4.0-10.0)
[2018-02-28 19:20] LABS: URINE APPEARANCE CLEAR; URINE BILIRUBIN NEGATIVE (<2.0 mg/dL); URINE COLOR STRAW; URINE GLUCOSE (UA) NEGATIVE (NEGATIVE); URINE KETONE NEGATIVE (NEGATIVE); URINE LEUK ESTERASE NEGATIVE (NEGATIVE); URINE NITRITE NEGATIVE (NEGATIVE); URINE PROTEIN NEGATIVE (NEGATIVE); URINE UROBILINOGEN NEGATIVE mg/dL (0.2-1.0)
[2018-02-28 20:00] LABS: ALBUMIN 4.1 g/dl (3.4-5.0); ALK PHOS 87 U/L (45-117); ANION GAP 4 (8-16); BILIRUBIN,TOTAL 0.4 mg/dL (0.2-1.0); BLOOD UREA NITROGEN 9 mg/dL (7-18); CALCIUM 9.1 mg/dL (8.5-10.1); CHLORIDE 104 mmol/L (98-107); CO2 30 mmol/L (21-32); GLUCOSE,RANDOM 83 mg/dL (74-106); POTASSIUM 4.9 mmol/L (3.5-5.1); SGOT/AST 15 U/L (15-37); SGPT/ALT 15 U/L (12-78); SODIUM 138 mmol/L (136-145)
[2018-02-28] MEDS ORDERED: MELATONIN 5 MG TABLETS PO PRN (22:00)
[2018-02-28] MEDS: chlordiazePOXIDE HCL 25 MG CAPSULE PO SCH (22:16)
[2018-02-28] MEDS: THIAMINE HCL 100 MG TABLET (FP) PO SCH (22:16)
[2018-02-28] MEDS: TAMSULOSIN HCL 0.4 MG CAP.ER.24H (FP) PO SCH (22:16)
[2018-02-28] MEDS: MONTELUKAST NA 10 MG TABLET PO SCH (22:16)
[2018-03-01] MEDS: chlordiazePOXIDE HCL 25 MG CAPSULE PO SCH ×4 (05:34→22:12)
[2018-03-01] MEDS: ALBUTEROL SO4 18 GM HFA INHALER IH PRN (05:54)
[2018-03-01] MEDS: ARTIFICIAL TEARS (POLYVINYL ALCOHOL 1.4%) OPTH DROPS OD SCH ×4 (10:14→22:49)
[2018-03-01] MEDS: NAPROXEN 375 MG TABLET (FP) PO SCH ×2 (10:15→22:11)
[2018-03-01] MEDS: PRENATAL VITAMINS W/ FOLIC ACID TABLET (FP) PO SCH (10:15)
[2018-03-01] MEDS: NICOTINE 21 MG/24 HOURS TOPICAL PATCH TD SCH (10:15)
--- NOTE | 2018-03-01 12:21 | PN ---
[facility] CIWA - CIWA Score Nausea/Vomitin-No Nausea/No Vomiting Muscle Tremors: 2 Anxiety: 4-Mod. Anxious/Guarded Agitation: 3 Paroxysmal Sweats: 3 Orientation: 0-Oriented Tacttile Disturbances: 3-Moderate Itch/Numb/Burn Auditory Disturbances: 2-Mild Harshness/Frighten Visual Disturbances: 0-None Headache: 0-None Present CIWA-Ar Total Score: 17 BHS Progress Note (SOAP) Subjective: Fatigue, Sweating, Body Aches. Objective: PATIENT A & O X 3, OBSERVED AMBULATING ON UNIT. NO ACUTE DISTRESS. 03/01/18 12:20 Vital Signs Temperature 98.6 F 03/01/18 09:15 Pulse Rate 98 H 03/01/18 09:15 Respiratory Rate 20 03/01/18 09:15 Blood Pressure 113/77 03/01/18 09:15 O2 Sat by Pulse Oximetry (%) Laboratory Tests 02/28/18 02/28/18 02/28/18 13:20 13:20 13:20 WBC 9.9 RBC 4.86 Hgb 14.8 Hct 44.8 MCV 92.2 MCH 30.6 MCHC 33.1 RDW 15.1 Plt Count 285 MPV 8.1 Sodium 138 Potassium 4.9 D Chloride 104 Carbon Dioxide 30 Anion Gap 4 L BUN 9 Creatinine 1.0 Creat Clearance w eGFR > 60 Random Glucose 83 Calcium 9.1 Total Bilirubin 0.4 D AST 15 ALT 15 Alkaline Phosphatase 87 Total Protein 7.0 Albumin 4.1 Urine Color Urine Appearance Urine pH Ur Specific [place] Urine Protein Urine Glucose (UA) Urine Ketones Urine Blood Urine Nitrite Urine Bilirubin Urine Urobilinogen Ur Leukocyte Esterase Urine WBC (Auto) Urine RBC (Auto) RPR Titer Nonreactive 02/28/18 15:00 WBC RBC Hgb Hct MCV MCH MCHC RDW Plt Count MPV Sodium Potassium Chloride Carbon Dioxide Anion Gap BUN Creatinine Creat Clearance w eGFR Random Glucose Calcium Total Bilirubin AST ALT Alkaline Phosphatase Total Protein Albumin Urine Color Straw Urine Appearance Clear Urine pH 6.0 Ur Specific [place] 1.006 Urine Protein Negative Urine Glucose (UA) Negative Urine Ketones Negative Urine Blood 1+ H Urine Nitrite Negative Urine Bilirubin Negative Urine Urobilinogen Negative Ur Leukocyte Esterase Negative Urine WBC (Auto) <1 Urine RBC (Auto) None RPR Titer LABS NOTED. Assessment: 03/01/18 12:20 WITHDRAWAL SYMPTOMS. Plan: CONTINUE DETOX. INCREASE DAILY PO FLUID INTAKE.
[2018-03-01] MEDS: THIAMINE HCL 100 MG TABLET (FP) PO SCH (22:10)
[2018-03-01] MEDS: MONTELUKAST NA 10 MG TABLET PO SCH (22:10)
[2018-03-01] MEDS: TAMSULOSIN HCL 0.4 MG CAP.ER.24H (FP) PO SCH (22:12)
[2018-03-02] MEDS: ALBUTEROL SO4 18 GM HFA INHALER IH PRN (05:38)
[2018-03-02] MEDS: chlordiazePOXIDE HCL 25 MG CAPSULE PO SCH ×3 (05:38→16:49)
[2018-03-02] MEDS ORDERED: FLUTICASONE PROP 0.05% 16 GM NASAL SPRAY NS PRN (09:35)
[2018-03-02] MEDS: PRENATAL VITAMINS W/ FOLIC ACID TABLET (FP) PO SCH (10:21)
[2018-03-02] MEDS: NAPROXEN 375 MG TABLET (FP) PO SCH ×2 (10:22→22:19)
[2018-03-02] MEDS: ARTIFICIAL TEARS (POLYVINYL ALCOHOL 1.4%) OPTH DROPS OD SCH ×4 (10:22→22:18)
[2018-03-02] MEDS: NICOTINE 21 MG/24 HOURS TOPICAL PATCH TD SCH (10:23)
--- NOTE | 2018-03-02 12:29 | PN ---
[facility] CIWA - CIWA Score Nausea/Vomitin-No Nausea/No Vomiting Muscle Tremors: 3 Anxiety: 4-Mod. Anxious/Guarded Agitation: 2 Paroxysmal Sweats: 3 Orientation: 0-Oriented Tacttile Disturbances: 0-None Auditory Disturbances: 2-Mild Harshness/Frighten Visual Disturbances: 2-Mild Sensitivity Headache: 0-None Present CIWA-Ar Total Score: 16 BHS Progress Note (SOAP) Subjective: Sweating, Interrupted Sleep, Fatigue, Tremors. Objective: PATIENT A & O X 3, OBSERVED AMBULATING ON UNIT WITH ASSISTANCE OF A CANE. NO ACUTE DISTRESS. 03/02/18 12:29 Vital Signs Temperature 97.6 F 03/02/18 09:18 Pulse Rate 82 03/02/18 09:18 Respiratory Rate 20 03/02/18 09:18 Blood Pressure 116/72 03/02/18 09:18 O2 Sat by Pulse Oximetry (%) Laboratory Tests 02/28/18 02/28/18 02/28/18 13:20 13:20 13:20 WBC 9.9 RBC 4.86 Hgb 14.8 Hct 44.8 MCV 92.2 MCH 30.6 MCHC 33.1 RDW 15.1 Plt Count 285 MPV 8.1 Sodium 138 Potassium 4.9 D Chloride 104 Carbon Dioxide 30 Anion Gap 4 L BUN 9 Creatinine 1.0 Creat Clearance w eGFR > 60 Random Glucose 83 Calcium 9.1 Total Bilirubin 0.4 D AST 15 ALT 15 Alkaline Phosphatase 87 Total Protein 7.0 Albumin 4.1 Urine Color Urine Appearance Urine pH Ur Specific [place] Urine Protein Urine Glucose (UA) Urine Ketones Urine Blood Urine Nitrite Urine Bilirubin Urine Urobilinogen Ur Leukocyte Esterase Urine WBC (Auto) Urine RBC (Auto) RPR Titer Nonreactive 02/28/18 15:00 WBC RBC Hgb Hct MCV MCH MCHC RDW Plt Count MPV Sodium Potassium Chloride Carbon Dioxide Anion Gap BUN Creatinine Creat Clearance w eGFR Random Glucose Calcium Total Bilirubin AST ALT Alkaline Phosphatase Total Protein Albumin Urine Color Straw Urine Appearance Clear Urine pH 6.0 Ur Specific [place] 1.006 Urine Protein Negative Urine Glucose (UA) Negative Urine Ketones Negative Urine Blood 1+ H Urine Nitrite Negative Urine Bilirubin Negative Urine Urobilinogen Negative Ur Leukocyte Esterase Negative Urine WBC (Auto) <1 Urine RBC (Auto) None RPR Titer LABS NOTED. Assessment: 03/02/18 12:30 WITHDRAWAL SYMPTOMS. Plan: CONTINUE DETOX.
[2018-03-02] MEDS: THIAMINE HCL 100 MG TABLET (FP) PO SCH (22:18)
[2018-03-02] MEDS: TAMSULOSIN HCL 0.4 MG CAP.ER.24H (FP) PO SCH (22:18)
[2018-03-02] MEDS: chlordiazePOXIDE 5 MG CAPSULE PO SCH (22:18)
[2018-03-02] MEDS: MONTELUKAST NA 10 MG TABLET PO SCH (22:19)
[2018-03-03] MEDS: chlordiazePOXIDE 5 MG CAPSULE PO SCH (05:55)
[2018-03-03] MEDS: ALBUTEROL SO4 18 GM HFA INHALER IH PRN (05:57)
[2018-03-03 09:32] VITALS: BP 124/84; PULSE 103; TEMP 96.8
--- NOTE | 2018-03-03 13:21 | PN ---
BHS Progress Note (SOAP) Subjective: Patient denies current Detox symptoms and reports that he feels well overall. Objective: PATIENT A & O X 3, OBSERVED AMBULATING ON UNIT. NO ACUTE DISTRESS. 03/03/18 15:05 Vital Signs Temperature 96.8 F L 03/03/18 09:31 Pulse Rate 103 H 03/03/18 09:31 Respiratory Rate 18 03/03/18 09:31 Blood Pressure 124/84 03/03/18 09:31 O2 Sat by Pulse Oximetry (%) Laboratory Tests 02/28/18 02/28/18 02/28/18 13:20 13:20 13:20 WBC 9.9 RBC 4.86 Hgb 14.8 Hct 44.8 MCV 92.2 MCH 30.6 MCHC 33.1 RDW 15.1 Plt Count 285 MPV 8.1 Sodium 138 Potassium 4.9 D Chloride 104 Carbon Dioxide 30 Anion Gap 4 L BUN 9 Creatinine 1.0 Creat Clearance w eGFR > 60 Random Glucose 83 Calcium 9.1 Total Bilirubin 0.4 D AST 15 ALT 15 Alkaline Phosphatase 87 Total Protein 7.0 Albumin 4.1 Urine Color Urine Appearance Urine pH Ur Specific [place] Urine Protein Urine Glucose (UA) Urine Ketones Urine Blood Urine Nitrite Urine Bilirubin Urine Urobilinogen Ur Leukocyte Esterase Urine WBC (Auto) Urine RBC (Auto) RPR Titer Nonreactive 02/28/18 15:00 WBC RBC Hgb Hct MCV MCH MCHC RDW Plt Count MPV Sodium Potassium Chloride Carbon Dioxide Anion Gap BUN Creatinine Creat Clearance w eGFR Random Glucose Calcium Total Bilirubin AST ALT Alkaline Phosphatase Total Protein Albumin Urine Color Straw Urine Appearance Clear Urine pH 6.0 Ur Specific [place] 1.006 Urine Protein Negative Urine Glucose (UA) Negative Urine Ketones Negative Urine Blood 1+ H Urine Nitrite Negative Urine Bilirubin Negative Urine Urobilinogen Negative Ur Leukocyte Esterase Negative Urine WBC (Auto) <1 Urine RBC (Auto) None RPR Titer LABS NOTED. Assessment: 03/03/18 15:06 COMPLETION OF DETOX REGIMEN. Plan: PATIENT SCHEDULED FOR DISCHARGE FROM DETOX UNIT TODAY.
--- NOTE | 2018-03-03 15:15 | DS ---
[facility] Detox Discharge Summary Admission Date: 02/28/18 Discharge Date: 03/03/18 - History Present History: Alcohol Dependence Additional Comments: PATIENT WILL RETURN TO [facility] OUTPATIENT SUBSTANCE USE PROGRAM (Matthew MADDEN ) FOR AFTERCARE. PATIENT DENIES CURRENT DETOX SYMPTOMS AND REPORTS THAT HE FEELS WELL OVERALL AT TIME OF DISCHARGE FROM DETOX. PATIENT WAS DISCHARGED FROM DETOX UNIT IN STABLE MEDICAL CONDITION. Pertinent Past History: Degenerative Disc Disease, Hep C (Treated), BPH, History of Enlarged Prostate, Asthma, Nicotine Dependence. - Physical Exam Results Vital Signs: Vital Signs Temperature 96.8 F L 03/03/18 09:31 Pulse Rate 103 H 03/03/18 09:31 Respiratory Rate 18 03/03/18 09:31 Blood Pressure 124/84 03/03/18 09:31 O2 Sat by Pulse Oximetry (%) Pertinent Admission Physical Exam Findings: WITHDRAWAL SYMPTOMS. Laboratory Tests 02/28/18 02/28/18 02/28/18 13:20 13:20 13:20 WBC 9.9 RBC 4.86 Hgb 14.8 Hct 44.8 MCV 92.2 MCH 30.6 MCHC 33.1 RDW 15.1 Plt Count 285 MPV 8.1 Sodium 138 Potassium 4.9 D Chloride 104 Carbon Dioxide 30 Anion Gap 4 L BUN 9 Creatinine 1.0 Creat Clearance w eGFR > 60 Random Glucose 83 Calcium 9.1 Total Bilirubin 0.4 D AST 15 ALT 15 Alkaline Phosphatase 87 Total Protein 7.0 Albumin 4.1 Urine Color Urine Appearance Urine pH Ur Specific [place] Urine Protein Urine Glucose (UA) Urine Ketones Urine Blood Urine Nitrite Urine Bilirubin Urine Urobilinogen Ur Leukocyte Esterase Urine WBC (Auto) Urine RBC (Auto) RPR Titer Nonreactive 02/28/18 15:00 WBC RBC Hgb Hct MCV MCH MCHC RDW Plt Count MPV Sodium Potassium Chloride Carbon Dioxide Anion Gap BUN Creatinine Creat Clearance w eGFR Random Glucose Calcium Total Bilirubin AST ALT Alkaline Phosphatase Total Protein Albumin Urine Color Straw Urine Appearance Clear Urine pH 6.0 Ur Specific [place] 1.006 Urine Protein Negative Urine Glucose (UA) Negative Urine Ketones Negative Urine Blood 1+ H Urine Nitrite Negative Urine Bilirubin Negative Urine Urobilinogen Negative Ur Leukocyte Esterase Negative Urine WBC (Auto) <1 Urine RBC (Auto) None RPR Titer LABS NOTED. - Treatment Hospital Course: Detox Protocol Followed, Detoxed Safely, Responded well, Discharged Condition Good Patient has Accepted a Rehab Referral to: PT RETURNING TO [facility] OUTPATIENT TREATMENT PROGRAM (Matthew MADDEN). - Medication Discharge Medications: Ambulatory Orders Cholecalciferol (Vitamin D3) [Vitamin D3] 1 cap PO DAILY #30 capsule 12/27/17 Dextran 70/Hypromellose [Artificial Tears Eye Drops] 1 drop OP TID 02/28/18 Montelukast Na [Singulair -] 10 mg PO HS 02/28/18 Tamsulosin HCl [Flomax -] 0.4 mg PO HS 02/28/18 Albuterol Sulfate Inhaler - [Ventolin Hfa Inhaler -] 2 inh PO Q4H PRN #1 inhaler 03/03/18 - Diagnosis (1) Alcohol dependence with uncomplicated withdrawal Status: Acute (2) Nicotine dependence Status: Acute Qualifiers: Nicotine product type: cigarettes Substance use status: in withdrawal Qualified Code(s): F17.213 - Nicotine dependence, cigarettes, with withdrawal (3) Asthma Status: Chronic Qualifiers: Asthma severity: mild Asthma persistence: intermittent Asthma complication type: uncomplicated Qualified Code(s): J45.20 - Mild intermittent asthma, uncomplicated (4) Enlarged prostate Status: Chronic (5) DJD (degenerative joint disease) Status: Resolved Qualifiers: Osteoarthritis location: unspecified site Osteoarthritis type: unspecified Qualified Code(s): M19.90 - Unspecified osteoarthritis, unspecified site (6) Hepatitis C Status: Resolved Qualifiers: Viral hepatitis chronicity: unspecified Hepatic coma status: without hepatic coma Qualified Code(s): B19.20 - Unspecified viral hepatitis C without hepatic coma - AMA Did Patient Leave Against Medical Advice: No
[2018-03-03] MEDS ORDERED: chlordiazePOXIDE HCL 10 MG CAPSULE PO SCH (23:00)
== END 2018-03-03 09:28 | disposition home or self-care (01) | DRG 775 ==
LOC: YASAS 11:10 → Y3N 13:56
PROVIDERS: ADMIT Internal Medicine; ATTEND Internal Medicine
PROC: HZ2ZZZZ Detoxification Services for Substance Abuse Treatment (ICD-10-PCS; principal; 2018-02-28)
DX: F10.230 Alcohol dependence with withdrawal, uncomplicated (principal); F17.210 Nicotine dependence, cigarettes, uncomplicated; J45.20 Mild intermittent asthma, uncomplicated; N40.0 Benign prostatic hyperplasia without lower urinary tract symptoms; M17.11 Unilateral primary osteoarthritis, right knee; M17.12 Unilateral primary osteoarthritis, left knee; Z99.89 Dependence on other enabling machines and devices; Z86.19 Personal history of other infectious and parasitic diseases
CPT/HCPCS: 36415; 80053; 81003; 81015; 85027; 86593; 93005; 93010; 94640

== ENCOUNTER 2021-07-01 14:43 | Inpatient (IN) | payer OTHER ==
[2021-07-01 17:54] VITALS: BMI 30.9
[2021-07-01] MEDS ORDERED: IBUPROFEN 400 MG TABLET (FP) PO PRN (19:11)
[2021-07-01] MEDS ORDERED: ACETAMINOPHEN 325 MG TABLET (FP) PO PRN ×2 (19:11)
[2021-07-01] MEDS ORDERED: MENTHOL/PHENOL 1 EACH UD MM PRN (19:11)
[2021-07-01] MEDS ORDERED: BISMUTH SUBSALICYLATE 524 MG/30 ML PO PRN (19:11)
[2021-07-01] MEDS ORDERED: MAGNESIUM HYDROX 2400MG/30ML ORAL SUSPENSION 30 ML CUP PO PRN (19:11)
[2021-07-01] MEDS ORDERED: ONDANSETRON *ODT* 4 MG TABLET SL PRN (19:11)
[2021-07-01] MEDS ORDERED: guaiFENesin 200 MG/10 ML 10 ML UNIT-DOSE CUPS PO PRN (19:11)
[2021-07-01] MEDS ORDERED: MAGNESIUM CITRATE 300 ML BOTTLE PO PRN (19:11)
[2021-07-01] MEDS ORDERED: METHOCARBAMOL 500 MG TABLET PO PRN (19:11)
[2021-07-01] MEDS ORDERED: MAG HYDROX/AL HYDROX/SIMETH 30 ML UNIT-DOSE CUP PO PRN (19:11)
[2021-07-01] MEDS ORDERED: ALBUTEROL SO4 HFA INHALER IH ONE (20:30)
[2021-07-01] MEDS: ALBUTEROL SO4 HFA INHALER IH PRN (20:32)
[2021-07-01] MEDS: diazePAM 5 MG TABLET PO PRN (21:40)
[2021-07-01] MEDS: hydrOXYzine PAMOATE 25 MG CAPSULE (FP) PO PRN (21:40)
[2021-07-01] MEDS: THIAMINE HCL 100 MG TABLET (FP) PO SCH (21:40)
[2021-07-01] MEDS: MELATONIN 5 MG TABLETS PO SCH (23:38)
[2021-07-02] MEDS: P-EPHED 60MG/TRIPROLIDI 2.5MG TABLET PO PRN ×4 (01:49→20:12)
[2021-07-02] MEDS: ALBUTEROL SO4 HFA INHALER IH PRN ×4 (01:50→20:11)
[2021-07-02] MEDS: TAMSULOSIN HCL 0.4 MG CAP PO SCH (07:56)
[2021-07-02] MEDS: diazePAM 5 MG TABLET PO PRN ×2 (07:59→13:00)
[2021-07-02] MEDS ORDERED: diazePAM 5 MG TABLET PO ONE (09:41)
[2021-07-02] MEDS: PRENATAL VITAMINS W/ FOLIC ACID TABLET (FP) PO SCH (10:07)
[2021-07-02] MEDS: diazePAM 5 MG TABLET PO SCH ×3 (10:09→22:04)
[2021-07-02] MEDS: NICOTINE 10 MG CARTRIDGE (INHALER) IH PRN (11:28)
[2021-07-02 12:41] LABS: HEMATOCRIT 44.5 % (35.4-49); HEMOGLOBIN 14.9 GM/dL (11.7-16.9); MCH 31.1 pg (25.7-33.7); MCHC 33.5 g/dl (32.0-35.9); MEAN CELL VOLUME 92.9 fl (80-96); MEAN PLT VOLUME 7.7 fl (7.5-11.1); PLATELET COUNT 254 10^3/uL (134-434); RBC 4.79 M/mm3 (4.00-5.60); RDW 14.4 % (11.9-15.9); WHITE BLOOD COUNT 7.5 K/mm3 (4.0-10.0)
[2021-07-02 12:56] LABS: BLOOD UREA NITROGEN 9.5 mg/dL (7-18); CALCIUM 9.2 mg/dL (8.5-10.1)
[2021-07-02 12:57] LABS: ALBUMIN 3.7 g/dl (3.4-5.0); CREATININE 1.1 mg/dL (0.55-1.3)
[2021-07-02 13:01] LABS: BILIRUBIN,TOTAL 0.8 mg/dL (0.2-1); TOT PROT 6.8 g/dl (6.4-8.2)
[2021-07-02] MEDS: hydrOXYzine PAMOATE 25 MG CAPSULE (FP) PO PRN (17:32)
[2021-07-02] MEDS: THIAMINE HCL 100 MG TABLET (FP) PO SCH (22:05)
[2021-07-02] MEDS: MELATONIN 5 MG TABLETS PO SCH (22:05)
[2021-07-03] MEDS: diazePAM 5 MG TABLET PO PRN (02:19)
[2021-07-03] MEDS: ALBUTEROL SO4 HFA INHALER IH PRN (02:21)
[2021-07-03] MEDS: P-EPHED 60MG/TRIPROLIDI 2.5MG TABLET PO PRN ×2 (02:21→10:40)
[2021-07-03] MEDS: diazePAM 5 MG TABLET PO SCH ×2 (05:27→10:36)
[2021-07-03] MEDS: NICOTINE 10 MG CARTRIDGE (INHALER) IH PRN (08:45)
[2021-07-03] MEDS: TAMSULOSIN HCL 0.4 MG CAP PO SCH (08:47)
[2021-07-03 09:16] VITALS: TEMP 97.1
[2021-07-03] MEDS: PRENATAL VITAMINS W/ FOLIC ACID TABLET (FP) PO SCH (10:34)
[2021-07-03 13:48] VITALS: BP 152/100; PULSE 104
[2021-07-03] MEDS ORDERED: MONTELUKAST NA 10 MG TABLET PO SCH (22:00)
[2021-07-04] MEDS ORDERED: diazePAM 5 MG TABLET PO SCH (06:00)
[2021-07-05] MEDS ORDERED: diazePAM 5 MG TABLET PO SCH (06:00)
[2021-07-06] MEDS ORDERED: diazePAM 5 MG TABLET PO ONE (06:00)
== END 2021-07-03 14:13 | disposition left against medical advice (07) | DRG 770 ==
LOC: YASAS 14:43 → Y6N 20:23 → Y3N 07-02 11:59
PROVIDERS: ADMIT Allergy & Immunology; ATTEND Allergy & Immunology
PROC: HZ2ZZZZ Detoxification Services for Substance Abuse Treatment (ICD-10-PCS; principal; 2021-07-01)
DX: F10.230 Alcohol dependence with withdrawal, uncomplicated (principal); F14.20 Cocaine dependence, uncomplicated; F17.210 Nicotine dependence, cigarettes, uncomplicated; F32.9 Major depressive disorder, single episode, unspecified; J44.9 Chronic obstructive pulmonary disease, unspecified; J45.20 Mild intermittent asthma, uncomplicated; M16.12 Unilateral primary osteoarthritis, left hip; M17.11 Unilateral primary osteoarthritis, right knee; M54.5 Low back pain; G89.29 Other chronic pain; N40.0 Benign prostatic hyperplasia without lower urinary tract symptoms; Z88.7 Allergy status to serum and vaccine
CPT/HCPCS: 36415; 80053; 85027; 86780; C9803; U0003; U0005

== ENCOUNTER 2022-04-29 21:05 | Inpatient (IN) | payer OTHER ==
[2022-04-29] MEDS ORDERED: DICYCLOMINE HCL 10 MG CAPSULE PO PRN (21:56)
[2022-04-29] MEDS ORDERED: LOPERAMIDE HCL 2 MG CAPSULE PO PRN (21:56)
[2022-04-29] MEDS ORDERED: IBUPROFEN 600 MG TABLET (FP) PO PRN (21:56)
[2022-04-29] MEDS ORDERED: MAGNESIUM CITRATE 300 ML BOTTLE PO PRN (21:56)
[2022-04-29] MEDS ORDERED: MAG HYDROX/AL HYDROX/SIMETH 30 ML UNIT-DOSE CUP PO PRN (21:56)
[2022-04-29] MEDS ORDERED: BENZOCAINE/MENTHOL (CHLORASEPTIC ) LOZENGE MM PRN (21:56)
[2022-04-29] MEDS ORDERED: MAGNESIUM HYDROX 2400MG/30ML ORAL SUSPENSION 30 ML CUP PO PRN (21:56)
[2022-04-29] MEDS ORDERED: guaiFENesin 200 MG/10 ML 10 ML UNIT-DOSE CUPS PO PRN (21:56)
[2022-04-29] MEDS ORDERED: BISMUTH SUBSALICYLATE 524 MG/30 ML PO PRN (21:56)
[2022-04-29] MEDS ORDERED: NICOTINE POLACRILEX 2 MG GUM BUC PRN (21:56)
[2022-04-29] MEDS ORDERED: P-EPHED 60MG/TRIPROLIDI 2.5MG TABLET PO PRN (21:56)
[2022-04-29] MEDS ORDERED: IBUPROFEN 400 MG TABLET (FP) PO PRN (21:56)
[2022-04-29] MEDS ORDERED: ACETAMINOPHEN 325 MG TABLET (FP) PO PRN ×2 (21:56)
[2022-04-29] MEDS ORDERED: METHOCARBAMOL 500 MG TABLET PO PRN (21:56)
[2022-04-29] MEDS ORDERED: ONDANSETRON *ODT* 4 MG TABLET SL PRN (21:56)
[2022-04-29] MEDS ORDERED: chlordiazePOXIDE HCL 25 MG CAPSULE PO PRN (21:57)
[2022-04-29] MEDS ORDERED: METOPROLOL TARTRATE 25 MG TABLET (FP) PO ONE (21:59)
[2022-04-29 22:29] VITALS: BMI 30.2
[2022-04-29] MEDS ORDERED: chlordiazePOXIDE HCL 25 MG CAPSULE ONE (22:51)
[2022-04-29] MEDS ORDERED: METOPROLOL TARTRATE 25 MG TABLET (FP) ONE (22:51)
[2022-04-29] MEDS: MELATONIN 5 MG TABLETS PO SCH (22:53)
[2022-04-29] MEDS: chlordiazePOXIDE HCL 25 MG CAPSULE PO SCH (22:53)
[2022-04-29] MEDS: THIAMINE HCL 100 MG TABLET (FP) PO SCH (22:53)
[2022-04-29] MEDS: MONTELUKAST NA 10 MG TABLET PO SCH (23:54)
[2022-04-30] MEDS: chlordiazePOXIDE HCL 25 MG CAPSULE PO SCH ×2 (06:52→10:11)
[2022-04-30] MEDS ORDERED: chlordiazePOXIDE HCL 25 MG CAPSULE ONE (06:52)
[2022-04-30] MEDS: ALBUTEROL SO4 HFA INHALER IH PRN ×2 (07:00→18:58)
[2022-04-30] MEDS: TAMSULOSIN HCL 0.4 MG CAP PO SCH (09:11)
[2022-04-30] MEDS: PRENATAL VITAMINS W/ FOLIC ACID TABLET (FP) PO SCH (09:11)
[2022-04-30] MEDS: hydrOXYzine PAMOATE 25 MG CAPSULE (FP) PO PRN ×3 (10:11→22:31)
[2022-04-30 10:22] LABS: HEMATOCRIT 43.9 % (35.4-49); HEMOGLOBIN 14.3 GM/dL (11.7-16.9); MCH 30.4 pg (25.7-33.7); MCHC 32.6 g/dl (32.0-35.9); MEAN CELL VOLUME 93.3 fl (80-96); MEAN PLT VOLUME 7.8 fl (7.5-11.1); PLATELET COUNT 190 10^3/uL (134-434); RDW 14.4 % (11.9-15.9); WHITE BLOOD COUNT 5.3 K/mm3 (4.0-10.0)
[2022-04-30 10:27] LABS: BLOOD UREA NITROGEN 8.6 mg/dL (7-18)
[2022-04-30 10:30] LABS: CREATININE 0.9 mg/dL (0.55-1.3)
[2022-04-30 10:32] LABS: BILIRUBIN,TOTAL 0.6 mg/dL (0.2-1)
[2022-04-30] MEDS: NICOTINE 10 MG CARTRIDGE (INHALER) IH PRN ×2 (11:05→18:55)
[2022-04-30] MEDS: LORazepam 1 MG TABLET PO PRN ×2 (12:36→17:49)
[2022-04-30] MEDS ORDERED: LORazepam 2 MG TABLET PO SCH (17:00)
[2022-04-30] MEDS ORDERED: LORazepam 1 MG TABLET PO SCH (17:19)
[2022-04-30] MEDS: MONTELUKAST NA 10 MG TABLET PO SCH (22:31)
[2022-04-30] MEDS: MELATONIN 5 MG TABLETS PO SCH (22:32)
[2022-04-30] MEDS: THIAMINE HCL 100 MG TABLET (FP) PO SCH (22:32)
[2022-04-30] MEDS ORDERED: METOPROLOL TARTRATE 25 MG TABLET (FP) PO ONE (23:14)
[2022-05-01] MEDS: LORazepam 1 MG TABLET PO SCH ×2 (04:59→11:30)
[2022-05-01] MEDS ORDERED: chlordiazePOXIDE HCL 25 MG CAPSULE PO SCH (05:00)
[2022-05-01] MEDS: ALBUTEROL SO4 HFA INHALER IH PRN (08:10)
[2022-05-01] MEDS: TAMSULOSIN HCL 0.4 MG CAP PO SCH (08:29)
[2022-05-01 09:38] VITALS: BP 151/103; PULSE 107; TEMP 98.6
[2022-05-01] MEDS: PRENATAL VITAMINS W/ FOLIC ACID TABLET (FP) PO SCH (10:14)
[2022-05-02] MEDS ORDERED: chlordiazePOXIDE HCL 10 MG CAPSULE PO PRN
[2022-05-02] MEDS ORDERED: LORazepam 0.5 MG TABLET PO SCH (05:00)
[2022-05-02] MEDS ORDERED: chlordiazePOXIDE HCL 10 MG CAPSULE PO SCH (05:00)
[2022-05-03] MEDS ORDERED: LORazepam 0.5 MG TABLET PO PRN
[2022-05-03] MEDS ORDERED: chlordiazePOXIDE HCL 10 MG CAPSULE PO SCH (05:00)
[2022-05-03] MEDS ORDERED: LORazepam 0.5 MG TABLET PO ONE (05:00)
[2022-05-04] MEDS ORDERED: chlordiazePOXIDE HCL 10 MG CAPSULE PO ONE (05:00)
== END 2022-05-01 11:55 | disposition left against medical advice (07) | DRG 770 ==
LOC: YASAS 21:05 → Y6N 04-30 07:17
PROVIDERS: ADMIT Allergy & Immunology; ATTEND Surgery
PROC: HZ2ZZZZ Detoxification Services for Substance Abuse Treatment (ICD-10-PCS; principal; 2022-04-30)
DX: F10.230 Alcohol dependence with withdrawal, uncomplicated (principal); F10.220 Alcohol dependence with intoxication, uncomplicated; F17.210 Nicotine dependence, cigarettes, uncomplicated; J44.9 Chronic obstructive pulmonary disease, unspecified; M16.12 Unilateral primary osteoarthritis, left hip; M54.59 Other low back pain; G89.29 Other chronic pain; N40.0 Benign prostatic hyperplasia without lower urinary tract symptoms; M19.90 Unspecified osteoarthritis, unspecified site; B19.20 Unspecified viral hepatitis C without hepatic coma; R00.0 Tachycardia, unspecified; Z88.8 Allergy status to other drugs, medicaments and biological substances
CPT/HCPCS: 36415; 71045-TC-FY; 80053; 85027; 86780; C9803-CS; U0003; U0005

== ENCOUNTER 2023-03-14 13:54 | Inpatient (IN) | payer OTHER ==
[2023-03-14 14:42] VITALS: BMI 26.8
[2023-03-14] MEDS ORDERED: NALOXONE HCL 0.4 MG/ML VIAL IM PRN (16:55)
[2023-03-14] MEDS ORDERED: COLLOIDAL OATMEAL 1 BAR EACH TP PRN (16:55)
[2023-03-14] MEDS ORDERED: IBUPROFEN 400 MG TABLET (FP) PO PRN (16:55)
[2023-03-14] MEDS ORDERED: MAG HYDROX/AL HYDROX/SIMETH 30 ML UNIT-DOSE CUP PO PRN (16:55)
[2023-03-14] MEDS ORDERED: ONDANSETRON *ODT* 4 MG TABLET SL PRN (16:55)
[2023-03-14] MEDS ORDERED: DICYCLOMINE HCL 10 MG CAPSULE PO PRN (16:55)
[2023-03-14] MEDS ORDERED: NICOTINE 10 MG CARTRIDGE (INHALER) IH PRN (16:55)
[2023-03-14] MEDS ORDERED: ACETAMINOPHEN 325 MG TABLET (FP) PO PRN (16:55)
[2023-03-14] MEDS ORDERED: NALOXONE HCL (KLOXXADO) 8 MG SPRAY NS PRN (16:55)
[2023-03-14] MEDS ORDERED: METHOCARBAMOL 500 MG TABLET PO PRN (16:55)
[2023-03-14] MEDS ORDERED: POLYETHYLENE GLYCOL (HEALTHYLAX) 3350 17 GM PACKET PO PRN (16:55)
[2023-03-14] MEDS ORDERED: AMMONIUM LACTATE 12% LOTION 225 GM BOTTLE TP PRN (16:55)
[2023-03-14] MEDS ORDERED: BISMUTH SUBSALICYLATE 524 MG/30 ML PO PRN (16:55)
[2023-03-14] MEDS ORDERED: BENZONATATE 200 MG CAPSULE PO PRN (16:55)
[2023-03-14] MEDS ORDERED: guaiFENesin 600 MG TABLET.ER (FP) PO PRN (16:55)
[2023-03-14] MEDS ORDERED: LOPERAMIDE HCL 2 MG CAPSULE PO PRN (16:55)
[2023-03-14] MEDS ORDERED: BENZOCAINE/MENTHOL (CHLORASEPTIC ) LOZENGE MM PRN (16:55)
[2023-03-14] MEDS ORDERED: MAGNESIUM HYDROX 2400MG/30ML ORAL SUSPENSION 30 ML CUP PO PRN (16:55)
[2023-03-14] MEDS ORDERED: diazePAM 5 MG TABLET ONE (17:37)
[2023-03-14] MEDS: diazePAM 5 MG TABLET PO SCH ×2 (17:39→22:08)
[2023-03-14] MEDS: NICOTINE 21 MG/24 HOURS TOPICAL PATCH TD SCH (17:51)
[2023-03-14] MEDS: MONTELUKAST NA 10 MG TABLET PO SCH (22:08)
[2023-03-14] MEDS: MELATONIN 5 MG TABLETS PO SCH (22:08)
[2023-03-14] MEDS: THIAMINE HCL 100 MG TABLET (FP) PO SCH (22:08)
[2023-03-14] MEDS: ALBUTEROL SO4 HFA INHALER IH PRN (22:44)
[2023-03-15] MEDS: diazePAM 5 MG TABLET PO SCH ×4 (05:14→22:16)
[2023-03-15] MEDS: TAMSULOSIN HCL 0.4 MG CAP PO SCH (09:03)
[2023-03-15] MEDS: CHOLECALCIFEROL (VIT D3) 1,000 UNIT (25 MCG) TABLET PO SCH (10:07)
[2023-03-15] MEDS: PRENATAL VITAMINS W/ FOLIC ACID TABLET (FP) PO SCH (10:07)
[2023-03-15] MEDS: NICOTINE 21 MG/24 HOURS TOPICAL PATCH TD SCH (10:07)
[2023-03-15 11:43] LABS: POTASSIUM 3.8 mmol/L (3.5-5.1)
[2023-03-15 11:44] LABS: HEMATOCRIT 41.9 % (35.4-49); MCH 31.6 pg (25.7-33.7); MCHC 33.4 g/dl (32.0-35.9); MEAN CELL VOLUME 94.8 fl (80-96); MEAN PLT VOLUME 7.7 fl (7.5-11.1); PLATELET COUNT 236 10^3/uL (134-434); RBC 4.42 M/mm3 (4.00-5.60); RDW 14.4 % (11.9-15.9); WHITE BLOOD COUNT 7.6 K/mm3 (4.0-10.0)
[2023-03-15 12:00] LABS: CALCIUM 9.6 mg/dL (8.5-10.1)
[2023-03-15 12:01] LABS: ALBUMIN 3.7 g/dl (3.4-5.0); BLOOD UREA NITROGEN 8.2 mg/dL (7-18)
[2023-03-15 12:04] LABS: CREATININE 0.9 mg/dL (0.55-1.3)
[2023-03-15 12:05] LABS: TOT PROT 6.9 g/dl (6.4-8.2)
[2023-03-15 12:07] LABS: BILIRUBIN,TOTAL 0.8 mg/dL (0.2-1)
[2023-03-15] MEDS: ALBUTEROL SO4 HFA INHALER IH PRN ×2 (16:31→22:17)
[2023-03-15] MEDS ORDERED: cloNIDine HCL 0.1 MG TABLET PO ONE (17:45)
[2023-03-15] MEDS: MONTELUKAST NA 10 MG TABLET PO SCH (22:14)
[2023-03-15] MEDS: THIAMINE HCL 100 MG TABLET (FP) PO SCH (22:14)
[2023-03-15] MEDS: MELATONIN 5 MG TABLETS PO SCH (22:14)
[2023-03-15] MEDS: MIRTAZAPINE 15 MG TABLET (FP) PO SCH (22:15)
[2023-03-16] MEDS: diazePAM 5 MG TABLET PO SCH ×3 (05:22→22:08)
[2023-03-16] MEDS: PRENATAL VITAMINS W/ FOLIC ACID TABLET (FP) PO SCH (09:16)
[2023-03-16] MEDS: TAMSULOSIN HCL 0.4 MG CAP PO SCH (09:17)
[2023-03-16] MEDS: CHOLECALCIFEROL (VIT D3) 1,000 UNIT (25 MCG) TABLET PO SCH (10:13)
[2023-03-16] MEDS: ARTIFICIAL TEARS (POLYVINYL ALCOHOL) OPTH DROPS OU PRN ×2 (10:14→22:11)
[2023-03-16] MEDS: NICOTINE POLACRILEX 2 MG GUM BUC PRN ×2 (10:16→13:36)
[2023-03-16] MEDS: NICOTINE 21 MG/24 HOURS TOPICAL PATCH TD SCH (10:16)
[2023-03-16] MEDS: IBUPROFEN 600 MG TABLET (FP) PO PRN (10:18)
[2023-03-16] MEDS: ALBUTEROL SO4 HFA INHALER IH PRN ×2 (10:18→22:11)
[2023-03-16] MEDS: FLUTICASONE PROP 0.05% 16 GM NASAL SPRAY NS SCH (17:55)
[2023-03-16] MEDS: amLODIPine BESYLATE 10 MG TABLET (FP) PO SCH (17:56)
[2023-03-16] MEDS: MIRTAZAPINE 15 MG TABLET (FP) PO SCH (22:08)
[2023-03-16] MEDS: MELATONIN 5 MG TABLETS PO SCH (22:09)
[2023-03-16] MEDS: THIAMINE HCL 100 MG TABLET (FP) PO SCH (22:09)
[2023-03-16] MEDS: MONTELUKAST NA 10 MG TABLET PO SCH (22:09)
[2023-03-17] MEDS: diazePAM 5 MG TABLET PO SCH ×2 (05:10→17:32)
[2023-03-17] MEDS: TAMSULOSIN HCL 0.4 MG CAP PO SCH (09:24)
[2023-03-17] MEDS: PRENATAL VITAMINS W/ FOLIC ACID TABLET (FP) PO SCH (10:25)
[2023-03-17] MEDS: FLUTICASONE PROP 0.05% 16 GM NASAL SPRAY NS SCH (10:25)
[2023-03-17] MEDS: amLODIPine BESYLATE 10 MG TABLET (FP) PO SCH (10:26)
[2023-03-17] MEDS: ALBUTEROL SO4 HFA INHALER IH PRN ×2 (10:27→22:05)
[2023-03-17] MEDS: NICOTINE POLACRILEX 2 MG GUM BUC PRN (10:27)
[2023-03-17] MEDS: CHOLECALCIFEROL (VIT D3) 1,000 UNIT (25 MCG) TABLET PO SCH (10:28)
[2023-03-17] MEDS: NICOTINE 21 MG/24 HOURS TOPICAL PATCH TD SCH (10:28)
[2023-03-17] MEDS: IBUPROFEN 600 MG TABLET (FP) PO PRN (17:34)
[2023-03-17 21:05] VITALS: RESP 18
[2023-03-17] MEDS: MONTELUKAST NA 10 MG TABLET PO SCH (22:04)
[2023-03-17] MEDS: MELATONIN 5 MG TABLETS PO SCH (22:04)
[2023-03-17] MEDS: MIRTAZAPINE 15 MG TABLET (FP) PO SCH (22:04)
[2023-03-17] MEDS: THIAMINE HCL 100 MG TABLET (FP) PO SCH (22:04)
[2023-03-17] MEDS: ARTIFICIAL TEARS (POLYVINYL ALCOHOL) OPTH DROPS OU PRN (22:05)
[2023-03-18] MEDS ORDERED: diazePAM 5 MG TABLET PO ONE (06:00)
[2023-03-18] MEDS: TAMSULOSIN HCL 0.4 MG CAP PO SCH (07:51)
[2023-03-18 09:07] VITALS: BP 155/95; PULSE 114; TEMP 98.4
[2023-03-18] MEDS: ALBUTEROL SO4 HFA INHALER IH PRN (09:25)
[2023-03-18] MEDS: FLUTICASONE PROP 0.05% 16 GM NASAL SPRAY NS SCH (09:25)
[2023-03-18] MEDS: ARTIFICIAL TEARS (POLYVINYL ALCOHOL) OPTH DROPS OU PRN (09:26)
[2023-03-18] MEDS: amLODIPine BESYLATE 10 MG TABLET (FP) PO SCH (09:26)
[2023-03-18] MEDS: CHOLECALCIFEROL (VIT D3) 1,000 UNIT (25 MCG) TABLET PO SCH (09:26)
[2023-03-18] MEDS: NICOTINE 21 MG/24 HOURS TOPICAL PATCH TD SCH (09:31)
[2023-03-18] MEDS: PRENATAL VITAMINS W/ FOLIC ACID TABLET (FP) PO SCH (09:31)
== END 2023-03-18 09:30 | disposition home or self-care (01) | DRG 774 ==
LOC: YASAS 13:54 → Y3N 17:18
PROVIDERS: ADMIT Allergy & Immunology; ATTEND Surgery
PROC: HZ2ZZZZ Detoxification Services for Substance Abuse Treatment (ICD-10-PCS; principal; 2023-03-14)
DX: F10.230 Alcohol dependence with withdrawal, uncomplicated (principal); F14.20 Cocaine dependence, uncomplicated; F17.210 Nicotine dependence, cigarettes, uncomplicated; G47.00 Insomnia, unspecified; I10 Essential (primary) hypertension; J45.909 Unspecified asthma, uncomplicated; N40.0 Benign prostatic hyperplasia without lower urinary tract symptoms; Z88.7 Allergy status to serum and vaccine
CPT/HCPCS: 36415; 80053; 85027; 86780; C9803-CS; U0003; U0005

== ENCOUNTER 2023-04-20 13:04 | Inpatient (IN) | payer OTHER ==
[2023-04-20 14:17] VITALS: BMI 27.1
[2023-04-20] MEDS ORDERED: LORazepam 2 MG/ML SDV VIAL IM ONE (18:15)
[2023-04-20] MEDS ORDERED: hydrOXYzine PAMOATE 25 MG CAPSULE (FP) PO PRN (18:18)
[2023-04-20] MEDS ORDERED: MAGNESIUM HYDROX 2400MG/30ML ORAL SUSPENSION 30 ML CUP PO PRN (18:18)
[2023-04-20] MEDS ORDERED: LOPERAMIDE HCL 2 MG CAPSULE PO PRN (18:18)
[2023-04-20] MEDS ORDERED: NALOXONE HCL (KLOXXADO) 8 MG SPRAY NS PRN (18:18)
[2023-04-20] MEDS ORDERED: BENZONATATE 200 MG CAPSULE PO PRN (18:18)
[2023-04-20] MEDS ORDERED: MAG HYDROX/AL HYDROX/SIMETH 30 ML UNIT-DOSE CUP PO PRN (18:18)
[2023-04-20] MEDS ORDERED: POLYETHYLENE GLYCOL (HEALTHYLAX) 3350 17 GM PACKET PO PRN (18:18)
[2023-04-20] MEDS ORDERED: NICOTINE 10 MG CARTRIDGE (INHALER) IH PRN (18:18)
[2023-04-20] MEDS ORDERED: DICYCLOMINE HCL 10 MG CAPSULE PO PRN (18:18)
[2023-04-20] MEDS ORDERED: BENZOCAINE/MENTHOL (CHLORASEPTIC ) LOZENGE MM PRN (18:18)
[2023-04-20] MEDS ORDERED: IBUPROFEN 600 MG TABLET (FP) PO PRN (18:18)
[2023-04-20] MEDS ORDERED: BISMUTH SUBSALICYLATE 524 MG/30 ML PO PRN (18:18)
[2023-04-20] MEDS ORDERED: ACETAMINOPHEN 325 MG TABLET (FP) PO PRN (18:18)
[2023-04-20] MEDS ORDERED: IBUPROFEN 400 MG TABLET (FP) PO PRN (18:18)
[2023-04-20] MEDS ORDERED: NALOXONE HCL 0.4 MG/ML VIAL IM PRN (18:18)
[2023-04-20] MEDS ORDERED: ONDANSETRON *ODT* 4 MG TABLET SL PRN (18:18)
[2023-04-20] MEDS ORDERED: METHOCARBAMOL 500 MG TABLET PO PRN (18:18)
[2023-04-20] MEDS: ALBUTEROL SO4 HFA INHALER IH PRN (19:34)
[2023-04-20] MEDS ORDERED: MELATONIN 5 MG TABLETS PO SCH (22:00)
[2023-04-20] MEDS: THIAMINE HCL 100 MG TABLET (FP) PO SCH (22:17)
[2023-04-20] MEDS: MONTELUKAST NA 10 MG TABLET PO SCH (22:17)
[2023-04-20] MEDS: diazePAM 5 MG TABLET PO SCH (22:18)
[2023-04-20] MEDS: NICOTINE POLACRILEX 2 MG GUM BUC PRN (22:42)
[2023-04-21] MEDS: ALBUTEROL SO4 HFA INHALER IH PRN ×3 (05:36→23:04)
[2023-04-21] MEDS: diazePAM 5 MG TABLET PO SCH ×4 (05:36→22:09)
[2023-04-21] MEDS: TAMSULOSIN HCL 0.4 MG CAP PO SCH (09:05)
[2023-04-21] MEDS: guaiFENesin 600 MG TABLET.ER (FP) PO PRN ×2 (10:18→22:10)
[2023-04-21] MEDS: PRENATAL VITAMINS W/ FOLIC ACID TABLET (FP) PO SCH (10:18)
[2023-04-21] MEDS: CHOLECALCIFEROL (VIT D3) 1,000 UNIT (25 MCG) TABLET PO SCH (10:19)
[2023-04-21] MEDS: amLODIPine BESYLATE 10 MG TABLET (FP) PO SCH (10:21)
[2023-04-21] MEDS: NICOTINE POLACRILEX 2 MG GUM BUC PRN ×4 (10:22→23:05)
[2023-04-21] MEDS: diazePAM 5 MG TABLET PO PRN (14:41)
[2023-04-21 14:59] LABS: POTASSIUM 4.4 mmol/L (3.5-5.1)
[2023-04-21 15:00] LABS: HEMATOCRIT 41.5 % (35.4-49); HEMOGLOBIN 13.8 GM/dL (11.7-16.9); MCHC 33.2 g/dl (32.0-35.9); MEAN CELL VOLUME 93.5 fl (80-96); MEAN PLT VOLUME 7.4 fl (7.5-11.1); PLATELET COUNT 336 10^3/uL (134-434); RBC 4.44 M/mm3 (4.00-5.60); RDW 15.1 % (11.9-15.9); WHITE BLOOD COUNT 8.7 K/mm3 (4.0-10.0)
[2023-04-21 15:02] LABS: CALCIUM 9.3 mg/dL (8.5-10.1)
[2023-04-21 15:03] LABS: ALBUMIN 3.6 g/dl (3.4-5.0); BLOOD UREA NITROGEN 10.9 mg/dL (7-18)
[2023-04-21 15:08] LABS: BILIRUBIN,TOTAL 0.3 mg/dL (0.2-1); TOT PROT 6.4 g/dl (6.4-8.2)
[2023-04-21] MEDS: MIRTAZAPINE 15 MG TABLET (FP) PO SCH (22:10)
[2023-04-21] MEDS: MONTELUKAST NA 10 MG TABLET PO SCH (22:10)
[2023-04-21] MEDS: THIAMINE HCL 100 MG TABLET (FP) PO SCH (22:10)
[2023-04-22] MEDS: diazePAM 5 MG TABLET PO SCH ×3 (05:25→22:21)
[2023-04-22] MEDS: guaiFENesin 600 MG TABLET.ER (FP) PO PRN ×2 (05:27→22:21)
[2023-04-22] MEDS: ALBUTEROL SO4 HFA INHALER IH PRN ×2 (09:28→17:42)
[2023-04-22] MEDS: TAMSULOSIN HCL 0.4 MG CAP PO SCH (09:28)
[2023-04-22] MEDS: amLODIPine BESYLATE 10 MG TABLET (FP) PO SCH (09:28)
[2023-04-22] MEDS: CHOLECALCIFEROL (VIT D3) 1,000 UNIT (25 MCG) TABLET PO SCH (09:28)
[2023-04-22] MEDS: diazePAM 5 MG TABLET PO PRN ×2 (09:29→17:43)
[2023-04-22] MEDS: NICOTINE POLACRILEX 2 MG GUM BUC PRN ×3 (09:29→17:42)
[2023-04-22] MEDS: PRENATAL VITAMINS W/ FOLIC ACID TABLET (FP) PO SCH (09:29)
[2023-04-22] MEDS ORDERED: P-EPHED 60MG/TRIPROLIDI 2.5MG TABLET PO PRN (10:55)
[2023-04-22] MEDS: THIAMINE HCL 100 MG TABLET (FP) PO SCH (22:21)
[2023-04-22] MEDS: MIRTAZAPINE 15 MG TABLET (FP) PO SCH (22:21)
[2023-04-22] MEDS: MONTELUKAST NA 10 MG TABLET PO SCH (22:21)
[2023-04-23] MEDS: diazePAM 5 MG TABLET PO SCH ×2 (05:22→17:31)
[2023-04-23] MEDS: TAMSULOSIN HCL 0.4 MG CAP PO SCH (08:50)
[2023-04-23] MEDS: CHOLECALCIFEROL (VIT D3) 1,000 UNIT (25 MCG) TABLET PO SCH (10:10)
[2023-04-23] MEDS: PRENATAL VITAMINS W/ FOLIC ACID TABLET (FP) PO SCH (10:10)
[2023-04-23] MEDS: diazePAM 5 MG TABLET PO PRN (10:11)
[2023-04-23] MEDS: amLODIPine BESYLATE 10 MG TABLET (FP) PO SCH (10:11)
[2023-04-23] MEDS: ALBUTEROL SO4 HFA INHALER IH PRN ×2 (17:33→22:27)
[2023-04-23] MEDS: NICOTINE POLACRILEX 2 MG GUM BUC PRN ×2 (17:34→22:28)
[2023-04-23] MEDS: MIRTAZAPINE 15 MG TABLET (FP) PO SCH (22:27)
[2023-04-23] MEDS: MONTELUKAST NA 10 MG TABLET PO SCH (22:27)
[2023-04-23] MEDS: THIAMINE HCL 100 MG TABLET (FP) PO SCH (22:27)
[2023-04-24] MEDS ORDERED: diazePAM 5 MG TABLET PO ONE (06:00)
[2023-04-24 06:13] VITALS: RESP 16
[2023-04-24] MEDS: TAMSULOSIN HCL 0.4 MG CAP PO SCH (08:56)
[2023-04-24 09:03] VITALS: BP 147/95; PULSE 90; TEMP 97.7
[2023-04-24] MEDS: ALBUTEROL SO4 HFA INHALER IH PRN (09:21)
[2023-04-24] MEDS: amLODIPine BESYLATE 10 MG TABLET (FP) PO SCH (09:21)
[2023-04-24] MEDS: CHOLECALCIFEROL (VIT D3) 1,000 UNIT (25 MCG) TABLET PO SCH (09:22)
[2023-04-24] MEDS: PRENATAL VITAMINS W/ FOLIC ACID TABLET (FP) PO SCH (09:22)
== END 2023-04-24 09:31 | disposition home or self-care (01) | DRG 775 ==
LOC: YASAS 13:04 → Y3N 18:38
PROVIDERS: ADMIT Allergy & Immunology; ATTEND Surgery
PROC: HZ2ZZZZ Detoxification Services for Substance Abuse Treatment (ICD-10-PCS; principal; 2023-04-20)
DX: F10.230 Alcohol dependence with withdrawal, uncomplicated (principal); F17.210 Nicotine dependence, cigarettes, uncomplicated; F19.282 Other psychoactive substance dependence with psychoactive substance-induced sleep disorder; F10.24 Alcohol dependence with alcohol-induced mood disorder; I10 Essential (primary) hypertension; J45.40 Moderate persistent asthma, uncomplicated; M54.50 Low back pain, unspecified; G89.29 Other chronic pain; N40.0 Benign prostatic hyperplasia without lower urinary tract symptoms; Z62.810 Personal history of physical and sexual abuse in childhood; Z86.19 Personal history of other infectious and parasitic diseases; Z88.7 Allergy status to serum and vaccine
CPT/HCPCS: 36415; 80053; 85027; 86780; 87635

== ENCOUNTER 2023-06-09 12:08 | Inpatient (IN) | payer OTHER ==
[2023-06-09 12:48] VITALS: BMI 28.2
[2023-06-09] MEDS ORDERED: LOPERAMIDE HCL 2 MG CAPSULE PO PRN (13:12)
[2023-06-09] MEDS ORDERED: BENZONATATE 200 MG CAPSULE PO PRN (13:12)
[2023-06-09] MEDS ORDERED: DICYCLOMINE HCL 10 MG CAPSULE PO PRN (13:12)
[2023-06-09] MEDS ORDERED: NALOXONE HCL 0.4 MG/ML VIAL IM PRN (13:12)
[2023-06-09] MEDS ORDERED: MAG HYDROX/AL HYDROX/SIMETH 30 ML UNIT-DOSE CUP PO PRN (13:12)
[2023-06-09] MEDS ORDERED: IBUPROFEN 400 MG TABLET (FP) PO PRN (13:12)
[2023-06-09] MEDS ORDERED: MAGNESIUM HYDROX 2400MG/30ML ORAL SUSPENSION 30 ML CUP PO PRN (13:12)
[2023-06-09] MEDS ORDERED: ONDANSETRON *ODT* 4 MG TABLET SL PRN (13:12)
[2023-06-09] MEDS ORDERED: BISMUTH SUBSALICYLATE 524 MG/30 ML PO PRN (13:12)
[2023-06-09] MEDS ORDERED: BENZOCAINE/MENTHOL (CHLORASEPTIC ) LOZENGE MM PRN (13:12)
[2023-06-09] MEDS ORDERED: POLYETHYLENE GLYCOL (HEALTHYLAX) 3350 17 GM PACKET PO PRN (13:12)
[2023-06-09] MEDS ORDERED: NALOXONE HCL (KLOXXADO) 8 MG SPRAY NS PRN (13:12)
[2023-06-09] MEDS ORDERED: ACETAMINOPHEN 325 MG TABLET (FP) PO PRN (13:12)
[2023-06-09] MEDS ORDERED: NICOTINE 21 MG/24 HOURS TOPICAL PATCH ONE (14:12)
[2023-06-09] MEDS ORDERED: PRENATAL VITAMINS W/ FOLIC ACID TABLET (FP) PO ONE (14:12)
[2023-06-09] MEDS ORDERED: amLODIPine BESYLATE 5 MG TABLET (FP) ONE (14:13)
[2023-06-09] MEDS: PRENATAL VITAMINS W/ FOLIC ACID TABLET (FP) PO SCH (14:15)
[2023-06-09] MEDS: NICOTINE 21 MG/24 HOURS TOPICAL PATCH TD SCH (14:15)
[2023-06-09] MEDS: amLODIPine BESYLATE 10 MG TABLET (FP) PO SCH (14:15)
[2023-06-09 17:09] LABS: HEMATOCRIT 42.5 % (35.4-49); HEMOGLOBIN 13.8 GM/dL (11.7-16.9); MCH 29.9 pg (25.7-33.7); MCHC 32.6 g/dl (32.0-35.9); MEAN CELL VOLUME 91.9 fl (80-96); MEAN PLT VOLUME 7.7 fl (7.5-11.1); PLATELET COUNT 316 10^3/uL (134-434); RBC 4.62 M/mm3 (4.00-5.60); RDW 14.6 % (11.9-15.9); WHITE BLOOD COUNT 7.1 K/mm3 (4.0-10.0)
[2023-06-09 17:18] LABS: POTASSIUM 3.9 mmol/L (3.5-5.1)
[2023-06-09 17:22] LABS: ALBUMIN 3.8 g/dl (3.4-5.0); BLOOD UREA NITROGEN 8.6 mg/dL (7-18); CALCIUM 8.7 mg/dL (8.5-10.1)
[2023-06-09 17:25] LABS: CREATININE 0.9 mg/dL (0.55-1.3)
[2023-06-09 17:27] LABS: BILIRUBIN,TOTAL 0.3 mg/dL (0.2-1)
[2023-06-09] MEDS: diazePAM 5 MG TABLET PO SCH ×2 (18:25→22:50)
[2023-06-09] MEDS: ALBUTEROL SO4 HFA INHALER IH PRN (20:04)
[2023-06-09] MEDS: THIAMINE HCL 100 MG TABLET (FP) PO SCH (22:50)
[2023-06-09] MEDS: MONTELUKAST NA 10 MG TABLET PO SCH (22:50)
[2023-06-09] MEDS: TAMSULOSIN HCL 0.4 MG CAP PO SCH (22:50)
[2023-06-09] MEDS: MELATONIN 5 MG TABLETS PO SCH (22:51)
[2023-06-10] MEDS: diazePAM 5 MG TABLET PO SCH ×4 (06:00→22:15)
[2023-06-10] MEDS: hydrOXYzine PAMOATE 25 MG CAPSULE (FP) PO PRN (07:49)
[2023-06-10] MEDS: METHOCARBAMOL 500 MG TABLET PO PRN (07:49)
[2023-06-10] MEDS: PRENATAL VITAMINS W/ FOLIC ACID TABLET (FP) PO SCH (10:14)
[2023-06-10] MEDS: amLODIPine BESYLATE 10 MG TABLET (FP) PO SCH (10:14)
[2023-06-10] MEDS: NICOTINE 21 MG/24 HOURS TOPICAL PATCH TD SCH (10:17)
[2023-06-10] MEDS: IBUPROFEN 600 MG TABLET (FP) PO PRN (10:19)
[2023-06-10] MEDS: diazePAM 5 MG TABLET PO PRN (14:26)
[2023-06-10] MEDS: LACTULOSE 20 GM/30 ML UDC (FOR ORAL USE ONLY) PO SCH ×2 (17:55→22:15)
[2023-06-10] MEDS: MONTELUKAST NA 10 MG TABLET PO SCH (22:15)
[2023-06-10] MEDS: THIAMINE HCL 100 MG TABLET (FP) PO SCH (22:15)
[2023-06-10] MEDS: MIRTAZAPINE 15 MG TABLET (FP) PO SCH (22:15)
[2023-06-10] MEDS: TAMSULOSIN HCL 0.4 MG CAP PO SCH (22:15)
[2023-06-10] MEDS: MELATONIN 5 MG TABLETS PO SCH (22:20)
[2023-06-11] MEDS: guaiFENesin 600 MG TABLET.ER (FP) PO PRN ×2 (05:11→15:56)
[2023-06-11] MEDS: diazePAM 5 MG TABLET PO SCH ×3 (05:12→22:07)
[2023-06-11] MEDS: OXYMETAZOLINE 0.05% NASAL SOLUTION 15 ML BOTTLE NS PRN ×3 (06:31→22:12)
[2023-06-11] MEDS: PRENATAL VITAMINS W/ FOLIC ACID TABLET (FP) PO SCH (10:06)
[2023-06-11] MEDS: METHOCARBAMOL 500 MG TABLET PO PRN (10:06)
[2023-06-11] MEDS: amLODIPine BESYLATE 10 MG TABLET (FP) PO SCH (10:06)
[2023-06-11] MEDS: hydrOXYzine PAMOATE 25 MG CAPSULE (FP) PO PRN (10:06)
[2023-06-11] MEDS: NICOTINE 21 MG/24 HOURS TOPICAL PATCH TD SCH (10:07)
[2023-06-11] MEDS: diazePAM 5 MG TABLET PO PRN (10:10)
[2023-06-11] MEDS: ALBUTEROL SO4 HFA INHALER IH PRN (10:11)
[2023-06-11] MEDS: LACTULOSE 20 GM/30 ML UDC (FOR ORAL USE ONLY) PO SCH ×4 (10:13→22:09)
[2023-06-11] MEDS: P-EPHED 60MG/TRIPROLIDI 2.5MG TABLET PO SCH ×3 (10:54→22:06)
[2023-06-11] MEDS: IBUPROFEN 600 MG TABLET (FP) PO PRN (15:55)
[2023-06-11] MEDS: TAMSULOSIN HCL 0.4 MG CAP PO SCH (22:06)
[2023-06-11] MEDS: MONTELUKAST NA 10 MG TABLET PO SCH (22:06)
[2023-06-11] MEDS: MIRTAZAPINE 15 MG TABLET (FP) PO SCH (22:06)
[2023-06-11] MEDS: THIAMINE HCL 100 MG TABLET (FP) PO SCH (22:06)
[2023-06-11] MEDS: MELATONIN 5 MG TABLETS PO SCH (22:09)
[2023-06-12] MEDS: OXYMETAZOLINE 0.05% NASAL SOLUTION 15 ML BOTTLE NS PRN ×2 (03:15→08:26)
[2023-06-12] MEDS ORDERED: diazePAM 5 MG TABLET PO SCH (06:00)
[2023-06-12] MEDS: LACTULOSE 20 GM/30 ML UDC (FOR ORAL USE ONLY) PO SCH (09:53)
[2023-06-12] MEDS: NICOTINE 21 MG/24 HOURS TOPICAL PATCH TD SCH (09:53)
[2023-06-12] MEDS: amLODIPine BESYLATE 10 MG TABLET (FP) PO SCH (09:54)
[2023-06-12] MEDS: PRENATAL VITAMINS W/ FOLIC ACID TABLET (FP) PO SCH (09:54)
[2023-06-12] MEDS: hydrOXYzine PAMOATE 25 MG CAPSULE (FP) PO PRN (09:56)
[2023-06-12] MEDS: METHOCARBAMOL 500 MG TABLET PO PRN (09:56)
[2023-06-12 10:15] VITALS: BP 148/86; PULSE 97; RESP 18; TEMP 97.5
[2023-06-13] MEDS ORDERED: diazePAM 5 MG TABLET PO ONE (06:00)
== END 2023-06-12 11:08 | disposition home or self-care (01) | DRG 774 ==
LOC: YASAS 12:08 → Y6N 14:35
PROVIDERS: ADMIT Allergy & Immunology; ATTEND Psychiatry & Neurology Pain Medicine
PROC: HZ2ZZZZ Detoxification Services for Substance Abuse Treatment (ICD-10-PCS; principal; 2023-06-09)
DX: F10.230 Alcohol dependence with withdrawal, uncomplicated (principal); F14.20 Cocaine dependence, uncomplicated; F17.210 Nicotine dependence, cigarettes, uncomplicated; F10.282 Alcohol dependence with alcohol-induced sleep disorder; F10.280 Alcohol dependence with alcohol-induced anxiety disorder; F10.24 Alcohol dependence with alcohol-induced mood disorder; F32.A Depression, unspecified; E72.20 Disorder of urea cycle metabolism, unspecified; I10 Essential (primary) hypertension; J45.40 Moderate persistent asthma, uncomplicated; J44.9 Chronic obstructive pulmonary disease, unspecified; N40.0 Benign prostatic hyperplasia without lower urinary tract symptoms; B19.20 Unspecified viral hepatitis C without hepatic coma; M16.12 Unilateral primary osteoarthritis, left hip; Z88.7 Allergy status to serum and vaccine
CPT/HCPCS: 36415; 80053; 82140; 85027; 86780; 87635; 87811

== ENCOUNTER 2023-07-07 16:13 | Inpatient (IN) | payer OTHER ==
[2023-07-07 18:53] VITALS: BMI 31.1
[2023-07-07] MEDS ORDERED: MAG HYDROX/AL HYDROX/SIMETH 30 ML UNIT-DOSE CUP PO PRN (20:20)
[2023-07-07] MEDS ORDERED: BENZOCAINE/MENTHOL (CHLORASEPTIC ) LOZENGE MM PRN (20:20)
[2023-07-07] MEDS ORDERED: NALOXONE HCL 0.4 MG/ML VIAL IM PRN (20:20)
[2023-07-07] MEDS ORDERED: hydrOXYzine PAMOATE 25 MG CAPSULE (FP) PO PRN (20:20)
[2023-07-07] MEDS ORDERED: NALOXONE HCL (KLOXXADO) 8 MG SPRAY NS PRN (20:20)
[2023-07-07] MEDS ORDERED: ONDANSETRON *ODT* 4 MG TABLET SL PRN (20:20)
[2023-07-07] MEDS ORDERED: MAGNESIUM HYDROX 2400MG/30ML ORAL SUSPENSION 30 ML CUP PO PRN (20:20)
[2023-07-07] MEDS ORDERED: ACETAMINOPHEN 325 MG TABLET (FP) PO PRN (20:20)
[2023-07-07] MEDS ORDERED: BENZONATATE 200 MG CAPSULE PO PRN (20:20)
[2023-07-07] MEDS ORDERED: guaiFENesin 600 MG TABLET.ER (FP) PO PRN (20:20)
[2023-07-07] MEDS ORDERED: LOPERAMIDE HCL 2 MG CAPSULE PO PRN (20:20)
[2023-07-07] MEDS ORDERED: IBUPROFEN 400 MG TABLET (FP) PO PRN (20:20)
[2023-07-07] MEDS ORDERED: BISMUTH SUBSALICYLATE 524 MG/30 ML PO PRN (20:20)
[2023-07-07] MEDS ORDERED: POLYETHYLENE GLYCOL (HEALTHYLAX) 3350 17 GM PACKET PO PRN (20:20)
[2023-07-07] MEDS ORDERED: diazePAM 5 MG TABLET ONE (21:08)
[2023-07-07] MEDS: diazePAM 5 MG TABLET PO PRN (21:09)
[2023-07-07] MEDS ORDERED: MELATONIN 5 MG TABLETS PO SCH (22:00)
[2023-07-07] MEDS: THIAMINE HCL 100 MG TABLET (FP) PO SCH (22:28)
[2023-07-07] MEDS: diazePAM 5 MG TABLET PO SCH (22:28)
[2023-07-08] MEDS: diazePAM 5 MG TABLET PO SCH ×4 (05:07→22:24)
[2023-07-08] MEDS ORDERED: ALBUTEROL SO4 HFA INHALER IH ONE (05:09)
[2023-07-08] MEDS: NICOTINE POLACRILEX 2 MG GUM BUC PRN ×2 (09:04→14:39)
[2023-07-08] MEDS: TAMSULOSIN HCL 0.4 MG CAP PO SCH (09:04)
[2023-07-08] MEDS: NICOTINE 21 MG/24 HOURS TOPICAL PATCH TD SCH (10:28)
[2023-07-08] MEDS: PRENATAL VITAMINS W/ FOLIC ACID TABLET (FP) PO SCH (10:29)
[2023-07-08] MEDS: amLODIPine BESYLATE 10 MG TABLET (FP) PO SCH (10:29)
[2023-07-08 11:55] LABS: POTASSIUM 4.5 mmol/L (3.5-5.1)
[2023-07-08 11:58] LABS: HEMATOCRIT 46.7 % (35.4-49); HEMOGLOBIN 14.8 GM/dL (11.7-16.9); MCH 29.3 pg (25.7-33.7); MCHC 31.6 g/dl (32.0-35.9); MEAN CELL VOLUME 92.6 fl (80-96); MEAN PLT VOLUME 8.3 fl (7.5-11.1); PLATELET COUNT 249 10^3/uL (134-434); RBC 5.05 M/mm3 (4.00-5.60); RDW 15.7 % (11.9-15.9); WHITE BLOOD COUNT 8.3 K/mm3 (4.0-10.0)
[2023-07-08 12:49] LABS: BILIRUBIN,TOTAL 1.1 mg/dL (0.2-1)
[2023-07-08 12:50] LABS: TOT PROT 6.7 g/dl (6.4-8.2)
[2023-07-08 12:52] LABS: BLOOD UREA NITROGEN 11.2 mg/dL (7-18); CALCIUM 8.7 mg/dL (8.5-10.1)
[2023-07-08 12:53] LABS: ALBUMIN 3.8 g/dl (3.4-5.0)
[2023-07-08] MEDS: diazePAM 5 MG TABLET PO PRN (14:37)
[2023-07-08] MEDS: ALBUTEROL SO4 HFA INHALER IH PRN (17:47)
[2023-07-08] MEDS: MIRTAZAPINE 15 MG TABLET (FP) PO SCH (22:24)
[2023-07-08] MEDS: THIAMINE HCL 100 MG TABLET (FP) PO SCH (22:24)
[2023-07-09] MEDS: diazePAM 5 MG TABLET PO SCH ×3 (05:17→22:14)
[2023-07-09] MEDS: NICOTINE POLACRILEX 2 MG GUM BUC PRN ×3 (05:19→22:15)
[2023-07-09] MEDS: TAMSULOSIN HCL 0.4 MG CAP PO SCH (09:21)
[2023-07-09] MEDS: amLODIPine BESYLATE 10 MG TABLET (FP) PO SCH (10:03)
[2023-07-09] MEDS: NICOTINE 21 MG/24 HOURS TOPICAL PATCH TD SCH (10:04)
[2023-07-09] MEDS: PRENATAL VITAMINS W/ FOLIC ACID TABLET (FP) PO SCH (10:04)
[2023-07-09] MEDS: diazePAM 5 MG TABLET PO PRN ×2 (10:04→18:13)
[2023-07-09] MEDS: LACTULOSE 20 GM/30 ML UDC (FOR ORAL USE ONLY) PO SCH ×4 (10:06→22:11)
[2023-07-09] MEDS: IBUPROFEN 600 MG TABLET (FP) PO PRN (17:47)
[2023-07-09] MEDS: MIRTAZAPINE 15 MG TABLET (FP) PO SCH (22:11)
[2023-07-09] MEDS: THIAMINE HCL 100 MG TABLET (FP) PO SCH (22:11)
[2023-07-10] MEDS: diazePAM 5 MG TABLET PO SCH ×2 (05:09→17:13)
[2023-07-10] MEDS: TAMSULOSIN HCL 0.4 MG CAP PO SCH (09:13)
[2023-07-10] MEDS: NICOTINE 21 MG/24 HOURS TOPICAL PATCH TD SCH (10:04)
[2023-07-10] MEDS: LACTULOSE 20 GM/30 ML UDC (FOR ORAL USE ONLY) PO SCH ×4 (10:06→22:06)
[2023-07-10] MEDS: amLODIPine BESYLATE 10 MG TABLET (FP) PO SCH (10:06)
[2023-07-10] MEDS: IBUPROFEN 600 MG TABLET (FP) PO PRN (10:07)
[2023-07-10] MEDS: NICOTINE POLACRILEX 2 MG GUM BUC PRN ×2 (10:08→22:07)
[2023-07-10] MEDS: PRENATAL VITAMINS W/ FOLIC ACID TABLET (FP) PO SCH (10:08)
[2023-07-10] MEDS: diazePAM 5 MG TABLET PO PRN (10:09)
[2023-07-10] MEDS ORDERED: LISINOPRIL 10 MG TABLET PO ONE (13:12)
[2023-07-10] MEDS: ALBUTEROL SO4 HFA INHALER IH PRN (17:15)
[2023-07-10 20:42] VITALS: RESP 17
[2023-07-10] MEDS: MIRTAZAPINE 15 MG TABLET (FP) PO SCH (22:06)
[2023-07-10] MEDS: THIAMINE HCL 100 MG TABLET (FP) PO SCH (22:06)
[2023-07-11] MEDS: NICOTINE POLACRILEX 2 MG GUM BUC PRN (05:52)
[2023-07-11] MEDS ORDERED: diazePAM 5 MG TABLET PO ONE (06:00)
[2023-07-11] MEDS: TAMSULOSIN HCL 0.4 MG CAP PO SCH (08:37)
[2023-07-11] MEDS: amLODIPine BESYLATE 10 MG TABLET (FP) PO SCH (09:14)
[2023-07-11] MEDS: NICOTINE 21 MG/24 HOURS TOPICAL PATCH TD SCH (09:14)
[2023-07-11] MEDS: PRENATAL VITAMINS W/ FOLIC ACID TABLET (FP) PO SCH (09:14)
[2023-07-11] MEDS: LACTULOSE 20 GM/30 ML UDC (FOR ORAL USE ONLY) PO SCH (09:14)
[2023-07-11 09:45] VITALS: BP 160/103; PULSE 110; TEMP 98.1
== END 2023-07-11 09:35 | disposition home or self-care (01) | DRG 774 ==
LOC: YASAS 16:13 → Y6N 21:39
PROVIDERS: ADMIT Allergy & Immunology; ATTEND Surgery
PROC: HZ2ZZZZ Detoxification Services for Substance Abuse Treatment (ICD-10-PCS; principal; 2023-07-07)
DX: F10.230 Alcohol dependence with withdrawal, uncomplicated (principal); F14.20 Cocaine dependence, uncomplicated; F17.213 Nicotine dependence, cigarettes, with withdrawal; F19.282 Other psychoactive substance dependence with psychoactive substance-induced sleep disorder; F19.24 Other psychoactive substance dependence with psychoactive substance-induced mood disorder; E72.20 Disorder of urea cycle metabolism, unspecified; I10 Essential (primary) hypertension; J45.20 Mild intermittent asthma, uncomplicated; N40.0 Benign prostatic hyperplasia without lower urinary tract symptoms; R26.89 Other abnormalities of gait and mobility; Z99.89 Dependence on other enabling machines and devices; Z86.19 Personal history of other infectious and parasitic diseases; Z88.7 Allergy status to serum and vaccine
CPT/HCPCS: 36415; 80053; 82140; 85027; 86780; 87635; 93005; 93010

== ENCOUNTER 2023-10-09 16:15 | Inpatient (IN) | payer OTHER ==
[2023-10-09 17:44] VITALS: BMI 29.8
[2023-10-09] MEDS ORDERED: ALBUTEROL SO4 HFA INHALER IH PRN (19:10)
[2023-10-09] MEDS ORDERED: LOPERAMIDE HCL 2 MG CAPSULE PO PRN (19:13)
[2023-10-09] MEDS ORDERED: POLYETHYLENE GLYCOL (HEALTHYLAX) 3350 17 GM PACKET PO PRN (19:13)
[2023-10-09] MEDS ORDERED: ACETAMINOPHEN 325 MG TABLET (FP) PO PRN (19:13)
[2023-10-09] MEDS ORDERED: IBUPROFEN 400 MG TABLET (FP) PO PRN (19:13)
[2023-10-09] MEDS ORDERED: IBUPROFEN 600 MG TABLET (FP) PO PRN (19:13)
[2023-10-09] MEDS ORDERED: ONDANSETRON *ODT* 4 MG TABLET SL PRN (19:13)
[2023-10-09] MEDS ORDERED: BISMUTH SUBSALICYLATE 524 MG/30 ML PO PRN (19:13)
[2023-10-09] MEDS ORDERED: DICYCLOMINE HCL 10 MG CAPSULE PO PRN (19:13)
[2023-10-09] MEDS ORDERED: MAG HYDROX/AL HYDROX/SIMETH 30 ML UNIT-DOSE CUP PO PRN (19:13)
[2023-10-09] MEDS ORDERED: BENZOCAINE/MENTHOL (CHLORASEPTIC ) LOZENGE MM PRN (19:13)
[2023-10-09] MEDS ORDERED: BENZONATATE 200 MG CAPSULE PO PRN (19:13)
[2023-10-09] MEDS ORDERED: guaiFENesin 600 MG TABLET.ER (FP) PO PRN (19:13)
[2023-10-09] MEDS ORDERED: P-EPHED 60MG/TRIPROLIDI 2.5MG TABLET PO PRN (19:13)
[2023-10-09] MEDS ORDERED: MAGNESIUM HYDROX 2400MG/30ML ORAL SUSPENSION 30 ML CUP PO PRN (19:13)
[2023-10-09] MEDS ORDERED: amLODIPine BESYLATE 10 MG TABLET (FP) PO SCH (19:15)
[2023-10-09] MEDS ORDERED: ALBUTEROL SO4 2.5/IPRATROPIUM 0.5 INH SOL 3 ML VIAL.NEB. NEB ONE ×2 (19:18→19:30)
[2023-10-09] MEDS ORDERED: amLODIPine BESYLATE 5 MG TABLET (FP) ONE (20:02)
[2023-10-09] MEDS: amLODIPine BESYLATE 10 MG TABLET (FP) PO SCH (20:45)
[2023-10-09] MEDS: THIAMINE HCL 100 MG TABLET (FP) PO SCH (22:17)
[2023-10-09] MEDS: hydrOXYzine PAMOATE 25 MG CAPSULE (FP) PO PRN (22:17)
[2023-10-09] MEDS: MELATONIN 5 MG TABLETS PO SCH (22:17)
[2023-10-09] MEDS: METHOCARBAMOL 500 MG TABLET PO PRN (22:17)
[2023-10-10] MEDS: ALBUTEROL SO4 2.5/IPRATROPIUM 0.5 INH SOL 3 ML VIAL.NEB. NEB SCH ×4 (02:30→21:51)
[2023-10-10] MEDS: METHOCARBAMOL 500 MG TABLET PO PRN ×2 (06:15→12:04)
[2023-10-10] MEDS: hydrOXYzine PAMOATE 25 MG CAPSULE (FP) PO PRN (06:15)
[2023-10-10] MEDS ORDERED: diazePAM 5 MG TABLET PO PRN (08:54)
[2023-10-10] MEDS: TAMSULOSIN HCL 0.4 MG CAP PO SCH (09:36)
[2023-10-10] MEDS: amLODIPine BESYLATE 10 MG TABLET (FP) PO SCH (09:36)
[2023-10-10] MEDS: PRENATAL VITAMINS W/ FOLIC ACID TABLET (FP) PO SCH (10:34)
[2023-10-10] MEDS: diazePAM 5 MG TABLET PO SCH ×3 (10:34→22:04)
[2023-10-10] MEDS: ARTIFICIAL TEARS (POLYVINYL ALCOHOL) OPTH DROPS OU SCH ×2 (10:34→22:08)
[2023-10-10 10:57] LABS: HEMATOCRIT 46.8 % (35.4-49); HEMOGLOBIN 15.6 GM/dL (11.7-16.9); MCH 30.6 pg (25.7-33.7); MCHC 33.2 g/dl (32.0-35.9); MEAN PLT VOLUME 7.4 fl (7.5-11.1); PLATELET COUNT 252 10^3/uL (134-434); RBC 5.09 M/mm3 (4.00-5.60); RDW 14.8 % (11.9-15.9); WHITE BLOOD COUNT 10.7 K/mm3 (4.0-10.0)
[2023-10-10 11:08] LABS: CHLORIDE 98 mmol/L (98-107); POTASSIUM 3.8 mmol/L (3.5-5.1); SODIUM 135 mmol/L (136-145)
[2023-10-10] MEDS: FLUTICASONE PROP 0.05% 16 GM NASAL SPRAY NS SCH ×2 (11:08→22:05)
[2023-10-10 11:16] LABS: ALBUMIN 3.9 g/dl (3.4-5.0); ANION GAP 9 mmol/L (4-13); BLOOD UREA NITROGEN 9.5 mg/dL (7-18); CALCIUM 9.4 mg/dL (8.5-10.1); CO2 28 mmol/L (21-32); GLUCOSE,RANDOM 127 mg/dL (74-106)
[2023-10-10 11:19] LABS: SGOT/AST 28 U/L (15-37)
[2023-10-10 11:21] LABS: BILIRUBIN,TOTAL 0.5 mg/dL (0.2-1); SGPT/ALT 24 U/L (13-61); TOT PROT 7.3 g/dl (6.4-8.2)
[2023-10-10 11:22] LABS: ALK PHOS 99 U/L (45-117)
[2023-10-10] MEDS: NICOTINE POLACRILEX 2 MG GUM BUC PRN ×2 (11:48→17:11)
[2023-10-10] MEDS ORDERED: cloNIDine HCL 0.1 MG TABLET PO ONE (11:54)
[2023-10-10] MEDS ORDERED: MIRTAZAPINE 15 MG TABLET (FP) PO SCH (22:00)
[2023-10-10] MEDS: THIAMINE HCL 100 MG TABLET (FP) PO SCH (22:04)
[2023-10-10] MEDS: MELATONIN 5 MG TABLETS PO SCH (22:04)
[2023-10-11] MEDS: diazePAM 5 MG TABLET PO SCH ×3 (05:14→17:00)
[2023-10-11] MEDS: amLODIPine BESYLATE 10 MG TABLET (FP) PO SCH (10:05)
[2023-10-11] MEDS: FLUTICASONE PROP 0.05% 16 GM NASAL SPRAY NS SCH (10:05)
[2023-10-11] MEDS: hydrOXYzine PAMOATE 25 MG CAPSULE (FP) PO PRN (10:05)
[2023-10-11] MEDS: PRENATAL VITAMINS W/ FOLIC ACID TABLET (FP) PO SCH (10:06)
[2023-10-11] MEDS: METHOCARBAMOL 500 MG TABLET PO PRN (10:06)
[2023-10-11] MEDS: TAMSULOSIN HCL 0.4 MG CAP PO SCH (10:06)
[2023-10-11] MEDS: ARTIFICIAL TEARS (POLYVINYL ALCOHOL) OPTH DROPS OU SCH (10:07)
[2023-10-11] MEDS: NICOTINE POLACRILEX 2 MG GUM BUC PRN (10:20)
[2023-10-11 16:51] VITALS: BP 148/112; PULSE 112; RESP 18; TEMP 97.1
[2023-10-12] MEDS ORDERED: diazePAM 5 MG TABLET PO SCH (06:00)
[2023-10-13] MEDS ORDERED: diazePAM 5 MG TABLET PO SCH (06:00)
[2023-10-14] MEDS ORDERED: diazePAM 5 MG TABLET PO ONE (06:00)
== END 2023-10-11 17:08 | disposition left against medical advice (07) | DRG 770 ==
LOC: YASAS 16:15 → Y6N 20:04
PROVIDERS: ADMIT Allergy & Immunology; ATTEND Surgery
PROC: HZ2ZZZZ Detoxification Services for Substance Abuse Treatment (ICD-10-PCS; principal; 2023-10-09)
DX: F10.230 Alcohol dependence with withdrawal, uncomplicated (principal); F17.210 Nicotine dependence, cigarettes, uncomplicated; F10.282 Alcohol dependence with alcohol-induced sleep disorder; F10.24 Alcohol dependence with alcohol-induced mood disorder; I10 Essential (primary) hypertension; J43.0 Unilateral pulmonary emphysema [MacLeod's syndrome]; J45.20 Mild intermittent asthma, uncomplicated; M15.9 Polyosteoarthritis, unspecified; N40.0 Benign prostatic hyperplasia without lower urinary tract symptoms; Z86.19 Personal history of other infectious and parasitic diseases; Z88.7 Allergy status to serum and vaccine
CPT/HCPCS: 36415; 71046-TC-FY; 80053; 80307; 85027; 86780; 87635; 94640

== ENCOUNTER 2024-01-03 21:15 | Observation (INO) | payer OTHER ==
[2024-01-03 21:27] VITALS: BMI 30.9
[2024-01-03 22:37] LABS: BASO % 1.1 % (0-2.0); EOS % 4.6 % (0-4.5); HEMATOCRIT 41.1 % (35.4-49); HEMOGLOBIN 13.7 GM/dL (11.7-16.9); LYMPH % 23.5 % (8-40); MCH 30.4 pg (25.7-33.7); MCHC 33.3 g/dl (32.0-35.9); MEAN CELL VOLUME 91.3 fl (80-96); MEAN PLT VOLUME 6.2 fl (7.5-11.1); MONO % 8.5 % (3.8-10.2); NEUT % 62.3 % (42.8-82.8); PLATELET COUNT 336 10^3/uL (134-434); RDW 14.1 % (11.9-15.9); WHITE BLOOD COUNT 7.8 K/mm3 (4.0-10.0)
[2024-01-03] MEDS ORDERED: ACETAMINOPHEN INJECTION 100 ML IVPB ONE (22:37)
[2024-01-03] MEDS ORDERED: ALBUTEROL SO4 HFA INHALER IH ONE (22:41)
[2024-01-03 22:44] LABS: INR 1.11 (0.83-1.09); PROTHROMBIN TIME (PATIENT) 12.9 SEC (9.7-13.0)
[2024-01-03] MEDS: ALBUTEROL SO4 HFA INHALER IH PRN (22:44)
[2024-01-03] MEDS: ACETAMINOPHEN 1000 MG/100 ML BAG IVPB ONE (22:44)
[2024-01-03 22:46] LABS: ACTIVATED PTT 30.3 SECONDS (25.2-36.5)
[2024-01-03 23:05] LABS: POTASSIUM 4.5 mmol/L (3.5-5.1)
[2024-01-03 23:07] LABS: ALBUMIN 3.4 g/dl (3.4-5.0); CALCIUM 8.6 mg/dL (8.5-10.1)
[2024-01-03 23:08] LABS: BLOOD UREA NITROGEN 4.7 mg/dL (7-18); MAGNESIUM 2.2 mg/dL (1.8-2.4)
[2024-01-03 23:11] LABS: CREATININE 0.7 mg/dL (0.55-1.3); PHOSPHOROUS 4.5 mg/dL (2.5-4.9)
[2024-01-03 23:12] LABS: BILIRUBIN,TOTAL 0.2 mg/dL (0.2-1); TOT PROT 6.9 g/dl (6.4-8.2)
[2024-01-04] MEDS ORDERED: morphine SULFATE 4 MG/ML VIAL ONE (04:51)
[2024-01-04] MEDS: morphine CARPU-JECT 4 MG/1 ML DISP.SYRIN IVPUSH ONE (04:55)
[2024-01-04] MEDS ORDERED: chlordiazePOXIDE HCL 25 MG CAPSULE ONE ×2 (04:57→10:29)
[2024-01-04] MEDS: chlordiazePOXIDE HCL 25 MG CAPSULE PO ONE (05:00)
[2024-01-04] MEDS ORDERED: traMADol HCL 50 MG TABLET PO PRN (06:28)
[2024-01-04] MEDS ORDERED: chlordiazePOXIDE HCL 25 MG CAPSULE PO PRN (06:32)
[2024-01-04] MEDS: ACETAMINOPHEN 1000 MG/100 ML BAG IVPB SCH ×2 (06:35→16:22)
[2024-01-04] MEDS: THIAMINE HCL 200 MG/2 ML VIAL IVPB SCH (06:45)
[2024-01-04] MEDS: SODIUM CHLORIDE 1,000 ML IV SCH (06:45)
[2024-01-04] MEDS ORDERED: ALBUTEROL SO4 HFA INHALER IH PRN (07:05)
[2024-01-04 07:25] LABS: HEMATOCRIT 44.3 % (35.4-49); HEMOGLOBIN 14.4 GM/dL (11.7-16.9); MCH 30.1 pg (25.7-33.7); MCHC 32.6 g/dl (32.0-35.9); MEAN CELL VOLUME 92.4 fl (80-96); MEAN PLT VOLUME 6.4 fl (7.5-11.1); PLATELET COUNT 372 10^3/uL (134-434); RBC 4.79 M/mm3 (4.00-5.60); RDW 13.9 % (11.9-15.9); WHITE BLOOD COUNT 6.9 K/mm3 (4.0-10.0)
[2024-01-04] MEDS ORDERED: MULTIVITAMINS (DAILY MVI) TABLET (FP) ONE (10:29)
[2024-01-04] MEDS ORDERED: amLODIPine BESYLATE 10 MG TABLET (FP) ONE (10:29)
[2024-01-04] MEDS ORDERED: FOLIC ACID 1 MG TABLET (FP) ONE (10:29)
[2024-01-04] MEDS ORDERED: TAMSULOSIN HCL 0.4 MG CAP ONE ×2 (10:30)
[2024-01-04] MEDS ORDERED: LIDOCAINE 4% PATCH TP ONE (10:30)
[2024-01-04] MEDS ORDERED: NICOTINE 21 MG/24 HOURS TOPICAL PATCH ONE (10:30)
[2024-01-04] MEDS: LIDOCAINE 4% PATCH TP ONE (10:35)
[2024-01-04] MEDS: FOLIC ACID 1 MG TABLET (FP) PO SCH (10:36)
[2024-01-04] MEDS: NICOTINE 21 MG/24 HOURS TOPICAL PATCH TD SCH (10:36)
[2024-01-04] MEDS: ENOXAPARIN NA (PORCINE) 40 MG/0.4 ML DISP.SYRIN SQ SCH (10:36)
[2024-01-04] MEDS: amLODIPine BESYLATE 10 MG TABLET (FP) PO SCH (10:36)
[2024-01-04] MEDS: MULTIVITAMINS (DAILY MVI) TABLET (FP) PO SCH (10:36)
[2024-01-04] MEDS: TAMSULOSIN HCL 0.4 MG CAP PO SCH (10:36)
[2024-01-04] MEDS: chlordiazePOXIDE HCL 25 MG CAPSULE PO SCH (10:37)
[2024-01-04] MEDS ORDERED: hydrOXYzine PAMOATE 25 MG CAPSULE (FP) PO PRN (14:43)
[2024-01-04] MEDS ORDERED: ACETAMINOPHEN 325 MG TABLET (FP) PO PRN (14:43)
[2024-01-04] MEDS ORDERED: LOPERAMIDE HCL 2 MG CAPSULE PO PRN (14:43)
[2024-01-04] MEDS ORDERED: ONDANSETRON *ODT* 4 MG TABLET SL PRN (14:43)
[2024-01-04] MEDS ORDERED: BENZONATATE 200 MG CAPSULE PO PRN (14:43)
[2024-01-04] MEDS ORDERED: IBUPROFEN 400 MG TABLET (FP) PO PRN (14:43)
[2024-01-04] MEDS ORDERED: BISMUTH SUBSALICYLATE 524 MG/30 ML PO PRN (14:43)
[2024-01-04] MEDS ORDERED: BENZOCAINE/MENTHOL (CHLORASEPTIC ) LOZENGE MM PRN (14:43)
[2024-01-04] MEDS ORDERED: DICYCLOMINE HCL 10 MG CAPSULE PO PRN (14:43)
[2024-01-04] MEDS ORDERED: IBUPROFEN 600 MG TABLET (FP) PO PRN (14:43)
[2024-01-04] MEDS ORDERED: MAGNESIUM HYDROX 2400MG/30ML ORAL SUSPENSION 30 ML CUP PO PRN (14:43)
[2024-01-04] MEDS ORDERED: POLYETHYLENE GLYCOL (HEALTHYLAX) 3350 17 GM PACKET PO PRN (14:43)
[2024-01-04] MEDS ORDERED: MAG HYDROX/AL HYDROX/SIMETH 30 ML UNIT-DOSE CUP PO PRN (14:43)
[2024-01-04] MEDS ORDERED: METHOCARBAMOL 500 MG TABLET PO PRN (14:43)
[2024-01-04 16:42] VITALS: RESP 18
[2024-01-04] MEDS: LIDOCAINE PATCH REMOVAL MC ONE (18:24)
[2024-01-04] MEDS: THIAMINE HCL 100 MG TABLET (FP) PO SCH (21:07)
[2024-01-04] MEDS: MELATONIN 5 MG TABLETS PO SCH (21:07)
[2024-01-05] MEDS: PRENATAL VITAMINS W/ FOLIC ACID TABLET (FP) PO SCH (09:52)
[2024-01-05 11:09] LABS: BASO % 0.5 % (0-2.0); EOS % 2.2 % (0-4.5); HEMATOCRIT 42.1 % (35.4-49); HEMOGLOBIN 14.1 GM/dL (11.7-16.9); LYMPH % 8.2 % (8-40); MCH 30.8 pg (25.7-33.7); MCHC 33.6 g/dl (32.0-35.9); MEAN CELL VOLUME 91.9 fl (80-96); MEAN PLT VOLUME 6.9 fl (7.5-11.1); MONO % 5.6 % (3.8-10.2); NEUT % 83.5 % (42.8-82.8); PLATELET COUNT 307 10^3/uL (134-434); RBC 4.58 M/mm3 (4.00-5.60); RDW 13.8 % (11.9-15.9); WHITE BLOOD COUNT 14.4 K/mm3 (4.0-10.0)
[2024-01-05 11:31] LABS: POTASSIUM 3.9 mmol/L (3.5-5.1)
[2024-01-05 11:39] LABS: ALBUMIN 3.2 g/dl (3.4-5.0); BLOOD UREA NITROGEN 8.4 mg/dL (7-18); MAGNESIUM 2.3 mg/dL (1.8-2.4)
[2024-01-05 11:41] LABS: CREATININE 0.9 mg/dL (0.55-1.3)
[2024-01-05 11:42] LABS: PHOSPHOROUS 3.1 mg/dL (2.5-4.9)
[2024-01-05 11:43] LABS: BILIRUBIN,TOTAL 0.7 mg/dL (0.2-1)
[2024-01-05 11:46] LABS: TOT PROT 6.5 g/dl (6.4-8.2)
[2024-01-05] MEDS: LIDOCAINE 4% PATCH TP SCH (12:51)
[2024-01-05] MEDS: FLUTICASONE PROP 0.05% 16 GM NASAL SPRAY NS SCH (16:30)
[2024-01-05] MEDS: guaiFENesin 600 MG TABLET.ER (FP) PO PRN (21:19)
[2024-01-05] MEDS: LIDOCAINE PATCH REMOVAL MC SCH (21:20)
[2024-01-06] MEDS: chlordiazePOXIDE HCL 25 MG CAPSULE PO SCH (04:56)
[2024-01-06 08:51] VITALS: BP 172/97; PULSE 107; TEMP 97.3
[2024-01-07] MEDS ORDERED: chlordiazePOXIDE HCL 10 MG CAPSULE PO PRN
[2024-01-07] MEDS ORDERED: chlordiazePOXIDE HCL 10 MG CAPSULE PO SCH (05:00)
[2024-01-08] MEDS ORDERED: chlordiazePOXIDE HCL 10 MG CAPSULE PO SCH (05:00)
[2024-01-09] MEDS ORDERED: chlordiazePOXIDE HCL 10 MG CAPSULE PO ONE (05:00)
== END 2024-01-06 10:00 | disposition left against medical advice (07) ==
LOC: JER 21:15 → JERBED 01-04 04:35 → J6S 01-04 16:17
PROVIDERS: ADMIT Internal Medicine; ATTEND Internal Medicine
PROC: 3E033NZ Introduction of Analgesics, Hypnotics, Sedatives into Peripheral Vein, Percutaneous Approach (ICD-10-PCS; principal; 2024-01-04)
PROC: 3E023GC Introduction of Other Therapeutic Substance into Muscle, Percutaneous Approach (ICD-10-PCS; 2024-01-04)
PROC: 3E0337Z Introduction of Electrolytic and Water Balance Substance into Peripheral Vein, Percutaneous Approach (ICD-10-PCS; 2024-01-04)
DX: S22.42XA Multiple fractures of ribs, left side, initial encounter for closed fracture (principal); D72.829 Elevated white blood cell count, unspecified; R07.1 Chest pain on breathing; W18.39XA Other fall on same level, initial encounter; Y93.E1 Activity, personal bathing and showering; Y92.002 Bathroom of unspecified non-institutional (private) residence as the place of occurrence of the external cause; F10.99 Alcohol use, unspecified with unspecified alcohol-induced disorder; I10 Essential (primary) hypertension; N40.0 Benign prostatic hyperplasia without lower urinary tract symptoms; J44.9 Chronic obstructive pulmonary disease, unspecified; M19.90 Unspecified osteoarthritis, unspecified site; F17.200 Nicotine dependence, unspecified, uncomplicated
CPT/HCPCS: 36415; 70450-TC; 71045-TC-FY; 71260-TC; 72125-TC; 72170-TC-FY; 74177-TC; 80053; 80307; 82140; 83735; 84100; 84484; 85025; 85027; 85610; 85730; 86850; 86900; 86901; 93005; 93010; 96361; 96372; 96374; 96376; 97162-GP; 99285-25; G0378; J0131; Q9967

== ENCOUNTER 2024-02-24 16:12 | Emergency (ER) | payer OTHER ==
[2024-02-24 16:48] VITALS: BP 144/89; PULSE 96; RESP 20; TEMP 98.1; BMI 29.0
[2024-02-24] MEDS ORDERED: ALBUTEROL SO4 2.5/IPRATROPIUM 0.5 INH SOL 3 ML VIAL.NEB. NEB ONE ×2 (17:43→18:19)
[2024-02-24] MEDS: ALBUTEROL SO4 2.5/IPRATROPIUM 0.5 INH SOL 3 ML VIAL.NEB. NEB ONE ×2 (17:47→18:37)
[2024-02-24 18:16] LABS: HEMATOCRIT 39.9 % (35.4-49); HEMOGLOBIN 13.4 GM/dL (11.7-16.9); MCH 29.7 pg (25.7-33.7); MCHC 33.7 g/dl (32.0-35.9); MEAN CELL VOLUME 88.1 fl (80-96); MEAN PLT VOLUME 6.4 fl (7.5-11.1); PLATELET COUNT 187 10^3/uL (134-434); RBC 4.53 M/mm3 (4.00-5.60); RDW 15.8 % (11.9-15.9); WHITE BLOOD COUNT 7.8 K/mm3 (4.0-10.0)
[2024-02-24] MEDS ORDERED: predniSONE 20 MG TABLET (UD) ONE (18:19)
[2024-02-24] MEDS: predniSONE 20 MG TABLET (UD) PO ONE (18:37)
[2024-02-24 18:47] LABS: POTASSIUM 3.7 mmol/L (3.5-5.1)
[2024-02-24 18:49] LABS: ALBUMIN 3.6 g/dl (3.4-5.0); CALCIUM 8.3 mg/dL (8.5-10.1); MAGNESIUM 2.3 mg/dL (1.8-2.4)
[2024-02-24 18:50] LABS: BLOOD UREA NITROGEN 11.3 mg/dL (7-18)
[2024-02-24 18:52] LABS: CREATININE 0.9 mg/dL (0.55-1.3)
[2024-02-24 18:54] LABS: BILIRUBIN,TOTAL 0.9 mg/dL (0.2-1); TOT PROT 6.7 g/dl (6.4-8.2)
[2024-02-24 19:55] LABS: ANISOCYTOSIS 1+; OVALOCYTE 1+
[2024-02-24 20:04] LABS: PLATELET ESTIMATE ADEQUATE
== END 2024-02-24 20:53 | disposition home or self-care (01) ==
LOC: JER 16:12
PROC: 3E0F7GC Introduction of Other Therapeutic Substance into Respiratory Tract, Via Natural or Artificial Opening (ICD-10-PCS; principal; 2024-02-24)
PROC: 3E0F7GC Introduction of Other Therapeutic Substance into Respiratory Tract, Via Natural or Artificial Opening (ICD-10-PCS; 2024-02-24)
DX: R06.02 Shortness of breath (principal); F10.229 Alcohol dependence with intoxication, unspecified
CPT/HCPCS: 36415; 71046-TC-FY; 80053; 80307; 83735; 85025; 87522; 93005; 93010; 99285-25

== ENCOUNTER 2024-03-17 20:26 | Inpatient (IN) | payer OTHER ==
[2024-03-17 20:56] VITALS: BMI 29.8
[2024-03-17] MEDS: ALBUTEROL SO4 2.5/IPRATROPIUM 0.5 INH SOL 3 ML VIAL.NEB. NEB SCH (21:04)
[2024-03-17] MEDS ORDERED: BISMUTH SUBSALICYLATE 524 MG/30 ML PO PRN (21:06)
[2024-03-17] MEDS ORDERED: NICOTINE POLACRILEX 2 MG LOZENGE BC PRN (21:06)
[2024-03-17] MEDS ORDERED: BENZOCAINE/MENTHOL (CHLORASEPTIC ) LOZENGE MM PRN (21:06)
[2024-03-17] MEDS ORDERED: MAG HYDROX/AL HYDROX/SIMETH 30 ML UNIT-DOSE CUP PO PRN (21:06)
[2024-03-17] MEDS ORDERED: ONDANSETRON *ODT* 4 MG TABLET SL PRN (21:06)
[2024-03-17] MEDS ORDERED: P-EPHED 60MG/TRIPROLIDI 2.5MG TABLET PO PRN (21:06)
[2024-03-17] MEDS ORDERED: POLYETHYLENE GLYCOL (HEALTHYLAX) 3350 17 GM PACKET PO PRN (21:06)
[2024-03-17] MEDS ORDERED: DICYCLOMINE HCL 10 MG CAPSULE PO PRN (21:06)
[2024-03-17] MEDS ORDERED: BENZONATATE 200 MG CAPSULE PO PRN (21:06)
[2024-03-17] MEDS ORDERED: ACETAMINOPHEN 325 MG TABLET (FP) PO PRN (21:06)
[2024-03-17] MEDS ORDERED: LOPERAMIDE HCL 2 MG CAPSULE PO PRN (21:06)
[2024-03-17] MEDS ORDERED: MAGNESIUM HYDROX 2400MG/30ML ORAL SUSPENSION 30 ML CUP PO PRN (21:06)
[2024-03-17] MEDS ORDERED: guaiFENesin 200 MG/10 ML 10 ML UNIT-DOSE CUPS PO PRN (21:14)
[2024-03-17] MEDS: chlordiazePOXIDE HCL 25 MG CAPSULE PO SCH (22:13)
[2024-03-17] MEDS: THIAMINE 100 MG TABLET PO SCH (22:13)
[2024-03-17] MEDS: MELATONIN 5 MG TABLETS PO SCH (22:13)
[2024-03-17] MEDS: predniSONE 20 MG TABLET (UD) PO SCH (22:42)
[2024-03-17] MEDS: NICOTINE POLACRILEX 2 MG GUM BUC PRN (22:45)
[2024-03-18] MEDS: METHOCARBAMOL 500 MG TABLET PO PRN (07:39)
[2024-03-18] MEDS: chlordiazePOXIDE HCL 25 MG CAPSULE PO PRN (07:39)
[2024-03-18] MEDS: TAMSULOSIN HCL 0.4 MG CAP PO SCH (07:39)
[2024-03-18] MEDS: PRENATAL VITAMINS W/ FOLIC ACID TABLET (FP) PO SCH (09:53)
[2024-03-18] MEDS: amLODIPine BESYLATE 10 MG TABLET (FP) PO SCH (09:54)
[2024-03-18] MEDS: LOSARTAN POTASSIUM 25 MG TABLET PO SCH (09:57)
[2024-03-18] MEDS: FOLIC ACID 1 MG TABLET (FP) PO SCH (09:57)
[2024-03-18 11:04] LABS: HEMOGLOBIN 14.1 GM/dL (11.7-16.9); MCH 30.5 pg (25.7-33.7); MCHC 33.5 g/dl (32.0-35.9); MEAN PLT VOLUME 6.9 fl (7.5-11.1); PLATELET COUNT 218 10^3/uL (134-434); RBC 4.61 M/mm3 (4.00-5.60); RDW 18.4 % (11.9-15.9); WHITE BLOOD COUNT 2.7 K/mm3 (4.0-10.0)
[2024-03-18 11:12] LABS: CALCIUM 9.2 mg/dL (8.5-10.1)
[2024-03-18 11:13] LABS: BLOOD UREA NITROGEN 6.8 mg/dL (7-18)
[2024-03-18 11:15] LABS: CREATININE 0.9 mg/dL (0.55-1.3)
[2024-03-18 11:17] LABS: BILIRUBIN,TOTAL 0.4 mg/dL (0.2-1); TOT PROT 7.7 g/dl (6.4-8.2)
[2024-03-18] MEDS: diazePAM 5 MG TABLET PO PRN (15:19)
[2024-03-18] MEDS: diazePAM 5 MG TABLET PO SCH (17:41)
[2024-03-18] MEDS: hydrOXYzine PAMOATE 25 MG CAPSULE (FP) PO PRN (20:52)
[2024-03-18] MEDS: chlordiazePOXIDE HCL 25 MG CAPSULE PO ONE (21:06)
[2024-03-18] MEDS ORDERED: chlordiazePOXIDE HCL 25 MG CAPSULE PO PRN (22:47)
[2024-03-18] MEDS: chlordiazePOXIDE HCL 25 MG CAPSULE PO SCH (23:10)
[2024-03-19] MEDS ORDERED: chlordiazePOXIDE HCL 25 MG CAPSULE PO SCH (05:00)
[2024-03-19 06:03] VITALS: TEMP 97.1
[2024-03-19 09:20] VITALS: BP 137/92; PULSE 106; RESP 18
[2024-03-19] MEDS: ALBUTEROL SO4 HFA INHALER IH PRN (10:16)
[2024-03-20] MEDS ORDERED: chlordiazePOXIDE HCL 10 MG CAPSULE PO PRN
[2024-03-20] MEDS ORDERED: chlordiazePOXIDE HCL 10 MG CAPSULE PO SCH (05:00)
[2024-03-20] MEDS ORDERED: chlordiazePOXIDE HCL 25 MG CAPSULE PO SCH (05:00)
[2024-03-20] MEDS ORDERED: diazePAM 5 MG TABLET PO SCH (06:00)
[2024-03-21] MEDS ORDERED: chlordiazePOXIDE HCL 10 MG CAPSULE PO PRN
[2024-03-21] MEDS ORDERED: chlordiazePOXIDE HCL 10 MG CAPSULE PO SCH ×2 (05:00)
[2024-03-21] MEDS ORDERED: diazePAM 5 MG TABLET PO SCH (06:00)
[2024-03-22] MEDS ORDERED: chlordiazePOXIDE HCL 10 MG CAPSULE PO ONE ×2 (05:00)
[2024-03-22] MEDS ORDERED: diazePAM 5 MG TABLET PO ONE (06:00)
== END 2024-03-19 12:00 | disposition left against medical advice (07) | DRG 770 ==
LOC: YASAS 20:26 → Y6N 21:13
PROVIDERS: ADMIT Allergy & Immunology; ATTEND Surgery
PROC: HZ2ZZZZ Detoxification Services for Substance Abuse Treatment (ICD-10-PCS; principal; 2024-03-17)
DX: F10.230 Alcohol dependence with withdrawal, uncomplicated (principal); F14.20 Cocaine dependence, uncomplicated; F17.210 Nicotine dependence, cigarettes, uncomplicated; I10 Essential (primary) hypertension; J45.20 Mild intermittent asthma, uncomplicated; R73.9 Hyperglycemia, unspecified; M19.90 Unspecified osteoarthritis, unspecified site; Z86.19 Personal history of other infectious and parasitic diseases; Z99.89 Dependence on other enabling machines and devices; Z88.7 Allergy status to serum and vaccine
CPT/HCPCS: 36415; 80053; 80305; 85027; 86780; 94640

== ENCOUNTER 2024-04-09 20:03 | Emergency (ER) | payer OTHER ==
[2024-04-09 20:13] VITALS: BP 105/68; PULSE 103; RESP 18; TEMP 98.4; BMI 24.2
== END 2024-04-09 21:30 | disposition home or self-care (01) ==
LOC: JERFT 20:03
DX: M25.552 Pain in left hip (principal); M25.561 Pain in right knee; G89.29 Other chronic pain
CPT/HCPCS: 73502-TC-LT-FY; 73562-TC-RT-FY; 99284-25

== ENCOUNTER 2024-05-26 20:51 | Inpatient (IN) | payer OTHER ==
[2024-05-26 21:13] VITALS: BMI 27.3
[2024-05-26] MEDS ORDERED: LOPERAMIDE HCL 2 MG CAPSULE PO PRN (23:24)
[2024-05-26] MEDS ORDERED: POLYETHYLENE GLYCOL (HEALTHYLAX) 3350 17 GM PACKET PO PRN (23:24)
[2024-05-26] MEDS ORDERED: MAG HYDROX/AL HYDROX/SIMETH 30 ML UNIT-DOSE CUP PO PRN (23:24)
[2024-05-26] MEDS ORDERED: NALOXONE HCL 0.4 MG/ML VIAL IM PRN (23:24)
[2024-05-26] MEDS ORDERED: BISMUTH SUBSALICYLATE 524 MG/30 ML PO PRN (23:24)
[2024-05-26] MEDS ORDERED: IBUPROFEN 600 MG TABLET (FP) PO PRN (23:24)
[2024-05-26] MEDS ORDERED: IBUPROFEN 400 MG TABLET (FP) PO PRN (23:24)
[2024-05-26] MEDS ORDERED: NALOXONE (NARCAN) HCL 4 MG/0.1 ML SPRAY NS PRN (23:24)
[2024-05-26] MEDS ORDERED: ONDANSETRON *ODT* 4 MG TABLET SL PRN (23:24)
[2024-05-26] MEDS ORDERED: guaiFENesin 600 MG TABLET.ER (FP) PO PRN (23:24)
[2024-05-26] MEDS ORDERED: MAGNESIUM HYDROX 2400MG/30ML ORAL SUSPENSION 30 ML CUP PO PRN (23:24)
[2024-05-26] MEDS ORDERED: DICYCLOMINE HCL 10 MG CAPSULE PO PRN (23:24)
[2024-05-27] MEDS ORDERED: METHOCARBAMOL 500 MG TABLET ONE (01:33)
[2024-05-27] MEDS ORDERED: hydrOXYzine PAMOATE 25 MG CAPSULE (FP) PO ONE (01:34)
[2024-05-27] MEDS: METHOCARBAMOL 500 MG TABLET PO PRN (06:02)
[2024-05-27] MEDS: hydrOXYzine PAMOATE 25 MG CAPSULE (FP) PO PRN (06:03)
[2024-05-27] MEDS: cloNIDine HCL 0.1 MG TABLET PO ONE (08:33)
[2024-05-27] MEDS: diazePAM 5 MG TABLET PO PRN (08:35)
[2024-05-27 10:42] LABS: HEMATOCRIT 42.7 % (35.4-49); HEMOGLOBIN 14.5 GM/dL (11.7-16.9); MCH 32.5 pg (25.7-33.7); MEAN CELL VOLUME 95.5 fl (80-96); MEAN PLT VOLUME 7.3 fl (7.5-11.1); PLATELET COUNT 214 10^3/uL (134-434); RBC 4.47 M/mm3 (4.00-5.60); RDW 14.2 % (11.9-15.9); WHITE BLOOD COUNT 6.6 K/mm3 (4.0-10.0)
[2024-05-27 10:45] LABS: CHLORIDE 98 mmol/L (98-107); POTASSIUM 4.6 mmol/L (3.5-5.1); SODIUM 134 mmol/L (136-145)
[2024-05-27 10:49] LABS: ALBUMIN 3.8 g/dl (3.4-5.0); ANION GAP 6 mmol/L (4-13); BLOOD UREA NITROGEN 5.5 mg/dL (7-18); CALCIUM 9.1 mg/dL (8.5-10.1); CO2 30 mmol/L (21-32); GLUCOSE,RANDOM 112 mg/dL (74-106)
[2024-05-27] MEDS: NICOTINE 14 MG/24 HOURS TOPICAL PATCH TD SCH (10:50)
[2024-05-27] MEDS: PRENATAL VITAMINS W/ FOLIC ACID TABLET (FP) PO SCH (10:50)
[2024-05-27] MEDS: amLODIPine BESYLATE 10 MG TABLET (FP) PO SCH (10:50)
[2024-05-27 10:52] LABS: CREATININE 0.8 mg/dL (0.55-1.3); SGPT/ALT 62 U/L (13-61)
[2024-05-27 10:54] LABS: TOT PROT 6.9 g/dl (6.4-8.2)
[2024-05-27 10:55] LABS: ALK PHOS 115 U/L (45-117)
[2024-05-27] MEDS: diazePAM 5 MG TABLET PO SCH (10:56)
[2024-05-27] MEDS: NICOTINE POLACRILEX 2 MG GUM BUC PRN (10:58)
[2024-05-27 11:03] LABS: SGOT/AST 63 U/L (15-37)
[2024-05-27 11:32] LABS: BILIRUBIN,TOTAL 0.6 mg/dL (0.2-1)
[2024-05-27] MEDS: ACETAMINOPHEN 325 MG TABLET (FP) PO PRN (17:17)
[2024-05-27] MEDS ORDERED: ALBUTEROL SO4 HFA INHALER IH ONE (17:20)
[2024-05-27] MEDS ORDERED: ALBUTEROL SO4 HFA INHALER IH PRN (19:21)
[2024-05-27] MEDS: BUDESONIDE/FORMETEROL FUMARATE 80/4.5 mcg INHALER IH SCH (22:16)
[2024-05-27] MEDS: TAMSULOSIN HCL 0.4 MG CAP PO SCH (22:17)
[2024-05-27] MEDS: MELATONIN 5 MG TABLETS PO SCH (22:17)
[2024-05-27] MEDS: THIAMINE 100 MG TABLET PO SCH (22:17)
[2024-05-27] MEDS: BENZOCAINE/MENTHOL (CHLORASEPTIC ) LOZENGE MM PRN (22:19)
[2024-05-28] MEDS: ALBUTEROL SO4 HFA INHALER IH PRN (10:12)
[2024-05-28] MEDS ORDERED: HYDROCORTISONE 1% TOPICAL OINT 30 GM TUBE TP PRN (11:23)
[2024-05-28] MEDS ORDERED: HYDROCORTISONE 1% TOPICAL OINT 30 GM TUBE TP SCH (11:30)
[2024-05-28] MEDS ORDERED: amLODIPine BESYLATE 10 MG TABLET (FP) PO SCH (11:30)
[2024-05-29] MEDS: diazePAM 5 MG TABLET PO SCH (06:00)
[2024-05-29] MEDS: LOSARTAN POTASSIUM 25 MG TABLET PO SCH (09:35)
[2024-05-29] MEDS ORDERED: METOPROLOL TARTRATE 25 MG TABLET (FP) PO ONE (20:41)
[2024-05-29] MEDS: METOPROLOL TARTRATE 25 MG TABLET (FP) PO ONE (22:26)
[2024-05-30] MEDS: diazePAM 5 MG TABLET PO SCH (05:34)
[2024-05-30 23:20] VITALS: RESP 16
[2024-05-31] MEDS: diazePAM 5 MG TABLET PO ONE (05:16)
[2024-05-31 09:46] VITALS: BP 146/90; PULSE 89; TEMP 97.6
== END 2024-05-31 09:11 | disposition home or self-care (01) | DRG 774 ==
LOC: YASAS 20:51 → Y3N 05-27 01:48
PROVIDERS: ADMIT Allergy & Immunology; ATTEND Allergy & Immunology
PROC: HZ2ZZZZ Detoxification Services for Substance Abuse Treatment (ICD-10-PCS; principal; 2024-05-27)
DX: F10.230 Alcohol dependence with withdrawal, uncomplicated (principal); F14.20 Cocaine dependence, uncomplicated; F17.213 Nicotine dependence, cigarettes, with withdrawal; I10 Essential (primary) hypertension; J44.9 Chronic obstructive pulmonary disease, unspecified; N40.0 Benign prostatic hyperplasia without lower urinary tract symptoms; G47.00 Insomnia, unspecified; M19.90 Unspecified osteoarthritis, unspecified site; G56.03 Carpal tunnel syndrome, bilateral upper limbs; K43.9 Ventral hernia without obstruction or gangrene; R29.2 Abnormal reflex; Z99.89 Dependence on other enabling machines and devices; Z86.19 Personal history of other infectious and parasitic diseases; Z56.0 Unemployment, unspecified
CPT/HCPCS: 36415; 80053; 80305; 80307; 85027; 86780; 86803; 87522; 93005; 93010

== ENCOUNTER 2024-07-04 21:07 | Inpatient (IN) | payer OTHER ==
[2024-07-04 22:09] VITALS: BMI 26.6
[2024-07-04] MEDS ORDERED: MAG HYDROX/AL HYDROX/SIMETH 30 ML UNIT-DOSE CUP PO PRN (22:24)
[2024-07-04] MEDS ORDERED: ACETAMINOPHEN 325 MG TABLET (FP) PO PRN (22:24)
[2024-07-04] MEDS ORDERED: guaiFENesin 600 MG TABLET.ER (FP) PO PRN (22:24)
[2024-07-04] MEDS ORDERED: ONDANSETRON *ODT* 4 MG TABLET SL PRN (22:24)
[2024-07-04] MEDS ORDERED: BENZONATATE 200 MG CAPSULE PO PRN (22:24)
[2024-07-04] MEDS ORDERED: BISMUTH SUBSALICYLATE 524 MG/30 ML PO PRN (22:24)
[2024-07-04] MEDS ORDERED: BENZOCAINE/MENTHOL (CHLORASEPTIC ) LOZENGE MM PRN (22:24)
[2024-07-04] MEDS ORDERED: POLYETHYLENE GLYCOL (HEALTHYLAX) 3350 17 GM PACKET PO PRN (22:24)
[2024-07-04] MEDS ORDERED: NICOTINE POLACRILEX 2 MG LOZENGE BC PRN (22:24)
[2024-07-04] MEDS ORDERED: MAGNESIUM HYDROX 2400MG/30ML ORAL SUSPENSION 30 ML CUP PO PRN (22:24)
[2024-07-04] MEDS ORDERED: DICYCLOMINE HCL 10 MG CAPSULE PO PRN (22:24)
[2024-07-04] MEDS ORDERED: LOPERAMIDE HCL 2 MG CAPSULE PO PRN (22:24)
[2024-07-05] MEDS: BUDESONIDE/FORMETEROL FUMARATE 80/4.5 mcg INHALER IH SCH (00:14)
[2024-07-05] MEDS ORDERED: diazePAM 5 MG TABLET ONE (00:15)
[2024-07-05] MEDS: diazePAM 5 MG TABLET PO SCH (00:17)
[2024-07-05] MEDS: TAMSULOSIN HCL 0.4 MG CAP PO SCH (07:38)
[2024-07-05] MEDS: diazePAM 5 MG TABLET PO PRN (08:53)
[2024-07-05] MEDS ORDERED: HYDROCORTISONE 1% TOPICAL OINT 30 GM TUBE TP SCH (10:00)
[2024-07-05] MEDS: amLODIPine BESYLATE 10 MG TABLET (FP) PO SCH (10:54)
[2024-07-05] MEDS: PRENATAL VITAMINS W/ FOLIC ACID TABLET (FP) PO SCH (10:54)
[2024-07-05] MEDS: valACYclovir HCL 500 MG TABLET (FP) PO SCH (10:54)
[2024-07-05] MEDS: FLUOCINONIDE 0.05% CREAM (15 GM TUBE) TP SCH (10:54)
[2024-07-05] MEDS: NICOTINE POLACRILEX 2 MG GUM BUC PRN (13:46)
[2024-07-05 15:04] LABS: HEMATOCRIT 42.5 % (35.4-49); HEMOGLOBIN 14.2 GM/dL (11.7-16.9); MCH 31.3 pg (25.7-33.7); MCHC 33.3 g/dl (32.0-35.9); MEAN PLT VOLUME 7.5 fl (7.5-11.1); PLATELET COUNT 224 10^3/uL (134-434); RBC 4.53 M/mm3 (4.00-5.60); RDW 14.8 % (11.9-15.9); WHITE BLOOD COUNT 5.3 K/mm3 (4.0-10.0)
[2024-07-05 15:09] LABS: CHLORIDE 100 mmol/L (98-107); POTASSIUM 4.3 mmol/L (3.5-5.1); SODIUM 139 mmol/L (136-145)
[2024-07-05 15:11] LABS: CALCIUM 9.5 mg/dL (8.5-10.1)
[2024-07-05 15:12] LABS: ANION GAP 11 mmol/L (4-13); BLOOD UREA NITROGEN 6.7 mg/dL (7-18); CO2 28 mmol/L (21-32); GLUCOSE,RANDOM 85 mg/dL (74-106)
[2024-07-05 15:15] LABS: CREATININE 0.9 mg/dL (0.55-1.3); SGOT/AST 32 U/L (15-37); SGPT/ALT 26 U/L (13-61)
[2024-07-05 15:17] LABS: BILIRUBIN,TOTAL 0.9 mg/dL (0.2-1)
[2024-07-05 15:18] LABS: ALK PHOS 97 U/L (45-117)
[2024-07-05 17:32] LABS: HIV INTERPRETATION NEGATIVE (NEGATIVE)
[2024-07-05] MEDS: THIAMINE 100 MG TABLET PO SCH (22:20)
[2024-07-05] MEDS: MELATONIN 5 MG TABLETS PO SCH (22:21)
[2024-07-05] MEDS: ALBUTEROL SO4 HFA INHALER IH PRN (22:21)
[2024-07-06] MEDS: diazePAM 5 MG TABLET PO SCH (05:45)
[2024-07-06] MEDS: METHOCARBAMOL 500 MG TABLET PO PRN (09:15)
[2024-07-06] MEDS: IBUPROFEN 600 MG TABLET (FP) PO PRN (20:32)
[2024-07-06] MEDS: MELATONIN 5 MG TABLETS PO SCH (22:18)
[2024-07-07] MEDS: IBUPROFEN 400 MG TABLET (FP) PO PRN (05:35)
[2024-07-07] MEDS: diazePAM 5 MG TABLET PO SCH (05:35)
[2024-07-07 09:03] VITALS: BP 141/82; PULSE 112; RESP 18; TEMP 97.6
[2024-07-08] MEDS ORDERED: diazePAM 5 MG TABLET PO ONE (06:00)
== END 2024-07-07 10:26 | disposition home or self-care (01) | DRG 775 ==
LOC: YASAS 21:07 → Y6N 23:42
PROVIDERS: ADMIT Allergy & Immunology; ATTEND Surgery
PROC: HZ2ZZZZ Detoxification Services for Substance Abuse Treatment (ICD-10-PCS; principal; 2024-07-04)
DX: F10.230 Alcohol dependence with withdrawal, uncomplicated (principal); F12.20 Cannabis dependence, uncomplicated; F17.210 Nicotine dependence, cigarettes, uncomplicated; F10.280 Alcohol dependence with alcohol-induced anxiety disorder; F10.282 Alcohol dependence with alcohol-induced sleep disorder; F41.8 Other specified anxiety disorders; G56.03 Carpal tunnel syndrome, bilateral upper limbs; I10 Essential (primary) hypertension; J45.20 Mild intermittent asthma, uncomplicated; M15.9 Polyosteoarthritis, unspecified; N40.0 Benign prostatic hyperplasia without lower urinary tract symptoms; Z86.19 Personal history of other infectious and parasitic diseases
CPT/HCPCS: 36415; 80053; 80305; 80307; 85027; 86780; 86803; 87389; 87522

== ENCOUNTER 2024-07-30 20:46 | Inpatient (IN) | payer OTHER ==
[2024-07-30 21:27] VITALS: BMI 24.2
[2024-07-30] MEDS ORDERED: IBUPROFEN 400 MG TABLET (FP) PO PRN (22:09)
[2024-07-30] MEDS ORDERED: NALOXONE HCL 0.4 MG/ML VIAL IM PRN (22:09)
[2024-07-30] MEDS ORDERED: guaiFENesin 600 MG TABLET.ER (FP) PO PRN (22:09)
[2024-07-30] MEDS ORDERED: ACETAMINOPHEN 325 MG TABLET (FP) PO PRN (22:09)
[2024-07-30] MEDS ORDERED: NALOXONE (NARCAN) HCL 4 MG/0.1 ML SPRAY NS PRN (22:09)
[2024-07-30] MEDS ORDERED: ONDANSETRON *ODT* 4 MG TABLET SL PRN (22:09)
[2024-07-30] MEDS ORDERED: MAG HYDROX/AL HYDROX/SIMETH 30 ML UNIT-DOSE CUP PO PRN (22:09)
[2024-07-30] MEDS ORDERED: MAGNESIUM HYDROX 2400MG/30ML ORAL SUSPENSION 30 ML CUP PO PRN (22:09)
[2024-07-30] MEDS ORDERED: BISMUTH SUBSALICYLATE 524 MG/30 ML PO PRN (22:09)
[2024-07-30] MEDS ORDERED: BENZONATATE 200 MG CAPSULE PO PRN (22:09)
[2024-07-30] MEDS ORDERED: LOPERAMIDE HCL 2 MG CAPSULE PO PRN (22:09)
[2024-07-30] MEDS ORDERED: POLYETHYLENE GLYCOL (HEALTHYLAX) 3350 17 GM PACKET PO PRN (22:09)
[2024-07-30] MEDS ORDERED: hydrOXYzine PAMOATE 25 MG CAPSULE (FP) PO PRN (22:09)
[2024-07-30] MEDS: chlordiazePOXIDE HCL 25 MG CAPSULE PO SCH (23:17)
[2024-07-30] MEDS: NICOTINE POLACRILEX 4 MG GUM BUC PRN (23:28)
[2024-07-31] MEDS: ALBUTEROL SO4 HFA INHALER IH PRN (05:21)
[2024-07-31] MEDS: chlordiazePOXIDE HCL 25 MG CAPSULE PO PRN (08:45)
[2024-07-31] MEDS: LOSARTAN POTASSIUM 25 MG TABLET PO SCH (10:01)
[2024-07-31] MEDS: amLODIPine BESYLATE 10 MG TABLET (FP) PO SCH (10:03)
[2024-07-31] MEDS: PRENATAL VITAMINS W/ FOLIC ACID TABLET (FP) PO SCH (10:03)
[2024-07-31] MEDS: BUDESONIDE/FORMETEROL FUMARATE 80/4.5 mcg INHALER IH SCH (10:04)
[2024-07-31] MEDS: NICOTINE 21 MG/24 HOURS TOPICAL PATCH TD SCH (10:19)
[2024-07-31] MEDS: diazePAM 5 MG TABLET PO SCH (11:05)
[2024-07-31 13:47] LABS: HEMATOCRIT 39.9 % (35.4-49); MCH 31.1 pg (25.7-33.7); MCHC 32.7 g/dl (32.0-35.9); MEAN CELL VOLUME 95.2 fl (80-96); MEAN PLT VOLUME 8.2 fl (7.5-11.1); PLATELET COUNT 182 10^3/uL (134-434); RBC 4.19 M/mm3 (4.00-5.60); RDW 15.4 % (11.9-15.9); WHITE BLOOD COUNT 7.6 K/mm3 (4.0-10.0)
[2024-07-31 13:56] LABS: POTASSIUM 3.7 mmol/L (3.5-5.1)
[2024-07-31 14:07] LABS: CALCIUM 9.2 mg/dL (8.5-10.1)
[2024-07-31 14:08] LABS: ALBUMIN 3.7 g/dl (3.4-5.0); BLOOD UREA NITROGEN 11.9 mg/dL (7-18)
[2024-07-31 14:11] LABS: CREATININE 0.7 mg/dL (0.55-1.3)
[2024-07-31 14:13] LABS: BILIRUBIN,TOTAL 0.3 mg/dL (0.2-1); TOT PROT 6.7 g/dl (6.4-8.2)
[2024-07-31] MEDS: IBUPROFEN 600 MG TABLET (FP) PO PRN (17:15)
[2024-07-31] MEDS ORDERED: MELATONIN 5 MG TABLETS PO SCH ×2 (22:00)
[2024-07-31] MEDS: THIAMINE 100 MG TABLET PO SCH (22:13)
[2024-07-31] MEDS: SUVOREXANT 10 MG TABLET PO PRN (22:13)
[2024-08-01] MEDS ORDERED: chlordiazePOXIDE HCL 25 MG CAPSULE PO SCH (05:00)
[2024-08-01] MEDS ORDERED: TAMSULOSIN HCL 0.4 MG CAP PO SCH (08:00)
[2024-08-01] MEDS: TAMSULOSIN HCL 0.4 MG CAP PO SCH (08:22)
[2024-08-01] MEDS: METHOCARBAMOL 500 MG TABLET PO PRN (14:50)
[2024-08-02] MEDS ORDERED: chlordiazePOXIDE HCL 10 MG CAPSULE PO PRN
[2024-08-02] MEDS ORDERED: chlordiazePOXIDE HCL 10 MG CAPSULE PO SCH (05:00)
[2024-08-02] MEDS: diazePAM 5 MG TABLET PO SCH (05:40)
[2024-08-02] MEDS: diazePAM 5 MG TABLET PO PRN (09:21)
[2024-08-02] MEDS: BENZOCAINE/MENTHOL (CHLORASEPTIC ) LOZENGE MM PRN (13:36)
[2024-08-02 16:56] VITALS: BP 110/71; PULSE 101; RESP 17; TEMP 97.7
[2024-08-03] MEDS ORDERED: chlordiazePOXIDE HCL 10 MG CAPSULE PO SCH (05:00)
[2024-08-03] MEDS ORDERED: diazePAM 5 MG TABLET PO SCH (06:00)
[2024-08-04] MEDS ORDERED: chlordiazePOXIDE HCL 10 MG CAPSULE PO ONE (05:00)
[2024-08-04] MEDS ORDERED: diazePAM 5 MG TABLET PO ONE (06:00)
== END 2024-08-02 18:05 | disposition left against medical advice (07) | DRG 770 ==
LOC: YASAS 20:46 → Y6N 22:22
PROVIDERS: ADMIT Allergy & Immunology; ATTEND Surgery
PROC: HZ2ZZZZ Detoxification Services for Substance Abuse Treatment (ICD-10-PCS; principal; 2024-07-30)
DX: F10.230 Alcohol dependence with withdrawal, uncomplicated (principal); F17.210 Nicotine dependence, cigarettes, uncomplicated; F10.280 Alcohol dependence with alcohol-induced anxiety disorder; F10.24 Alcohol dependence with alcohol-induced mood disorder; F10.282 Alcohol dependence with alcohol-induced sleep disorder; I10 Essential (primary) hypertension; J44.9 Chronic obstructive pulmonary disease, unspecified; J45.20 Mild intermittent asthma, uncomplicated; M15.9 Polyosteoarthritis, unspecified; N40.0 Benign prostatic hyperplasia without lower urinary tract symptoms; Z99.89 Dependence on other enabling machines and devices; Z88.7 Allergy status to serum and vaccine
CPT/HCPCS: 36415; 80053; 80305; 80307; 85027; 86780; 93005; 93010